=== PATIENT | female | born 1990 | race Caucasian/White ===

== ENCOUNTER 2022-07-06 09:54 | Outpatient (REF) | payer BC, SELFPAY ==
[2022-07-06 11:40] LABS: Hematocrit 41.6 % (37.0-47.0); Hemoglobin 13.6 g/dl (12.0-16.0); Mean Corpuscular HGB Conc 32.7 g/dl (31.0-35.0); Mean Corpuscular Hemoglobin 31.6 pg (27.0-33.0); Mean Corpuscular Volume 96.5 fL (80.0-98.0); Mean Platelet Volume 8.7 fL (9.4-12.3); Platelet Count 316 X10*3/uL (160-400); Red Blood Count 4.31 X10*6/uL (4.20-5.50); Red Cell Distribution Width 12.7 % (11.0-16.0); White Blood Count 8.9 X10*3/uL (4.8-10.8)
[2022-07-06 12:18] LABS: Alanine Aminotransferase 16 U/L (0-31); Albumin Level 4.2 g/dL (3.5-5.0); Alkaline Phosphatase 89 U/L (39-117); Anion Gap 17 (12-20); Aspartate Amino Transferase 18 U/L (5-31); Bilirubin Total 0.5 mg/dL (0.0-1.0); Blood Urea Nitrogen 14 mg/dL (9-16); Calcium 8.9 mg/dL (8.4-10.2); Carbon Dioxide 25 mmol/L (22-29); Chloride 102 mmol/L (96-108); Cholesterol 271 mg/dL; Estimated Glomerular Filt Rate > 60; Glucose Fasting 97 mg/dL (60-99); HDL Cholesterol 60 mg/dL; LDL Cholesterol Calculated 183 mg/dl; Potassium 4.6 mmol/L (3.3-5.1); Sodium 139 mmol/L (135-145); Total Protein 7.3 g/dL (6.5-8.0); Triglycerides 143 mg/dL
[2022-07-06 12:33] LABS: Appearance Urine Clear; Color Urine Yellow; Glucose Urine UA Negative (Negative); Leukocyte Esterase Urine Negative (Negative); Nitrite Urine Negative (Negative); PH 6.5 (5.0-9.0); Urine Blood Negative (Negative); Urine Ketones Negative (Negative); Urine Protein Negative (Neg-Trace)
[2022-07-06 17:07] LABS: TSH reflex Free T4 > 100.00 uIU/mL (0.32-4.0)
== END 2022-07-06 09:55 | disposition home or self-care (01) ==
LOC: HO.WFDLDS 09:54
PROVIDERS: Visit Provider Hospitalist
DX: Z00.00 Encounter for general adult medical examination without abnormal findings (principal)
CPT/HCPCS: 36415; 80053; 80061; 81003; 84439; 84443; 85027

== ENCOUNTER → 2022-08-20 13:18 | Outpatient (BNVA) | payer BC, SELFPAY | PROVIDERS: PCP Hospitalist; Visit Provider Dietitian, Registered | DX: E66.9 Obesity, unspecified (principal); E78.00 Pure hypercholesterolemia, unspecified | CPT/HCPCS: 97802 ==

== ENCOUNTER 2022-09-08 11:15 | Outpatient (REF) | payer BC, SELFPAY ==
[2022-09-08 14:32] LABS: Thyroid Stimulating Hormone 2.95 uIU/mL (0.32-4.0)
== END 2022-09-08 11:16 | disposition home or self-care (01) ==
LOC: HO.WFDLDS 11:15
PROVIDERS: Visit Provider Internal Medicine Endocrinology, Diabetes & Metabolism
DX: E03.9 Hypothyroidism, unspecified (principal)
CPT/HCPCS: 36415; 84439; 84443

== ENCOUNTER 2023-01-03 11:18 | Outpatient (REF) | payer BC, SELFPAY ==
[2023-01-03 14:58] LABS: Free T4 (Free Thyroxine) 1.43 ng/dL (0.71-1.85); Thyroid Stimulating Hormone 2.77 uIU/mL (0.32-4.0)
== END 2023-01-03 11:19 | disposition home or self-care (01) ==
LOC: HO.WFDLDS 11:18
PROVIDERS: Visit Provider Internal Medicine Endocrinology, Diabetes & Metabolism
DX: E03.9 Hypothyroidism, unspecified (principal)
CPT/HCPCS: 36415; 84439; 84443

== ENCOUNTER → 2023-01-14 08:07 | Outpatient (BNVA) | payer BC, SELFPAY | PROVIDERS: PCP Hospitalist; Visit Provider Internal Medicine Endocrinology, Diabetes & Metabolism | DX: Z13.89 Encounter for screening for other disorder (principal) ==

== ENCOUNTER → 2023-01-17 13:13 | Outpatient (BNVA) | payer BC, SELFPAY | PROVIDERS: PCP Hospitalist; Visit Provider Dietitian, Registered | DX: E78.00 Pure hypercholesterolemia, unspecified (principal); E66.9 Obesity, unspecified; Z68.41 Body mass index [BMI] 40.0-44.9, adult; Z71.3 Dietary counseling and surveillance | CPT/HCPCS: 97803 ==

== ENCOUNTER 2023-04-08 08:23 | Outpatient (AMB) | payer BC, SELFPAY ==
--- NOTE | 2023-04-08 08:30 | A.OFFPC_ITS ---
Vital Signs 04/08/23 08:34 Height 5 ft 4 in Weight 252 lb 8 oz BMI 43.3 BP 128/80 Blood Pressure Location Lt brachial Position Sitting Respiration 14 Pulse 85 Pulse Source Pulse Oximeter Temp 98.9 F Temp Source Temporal Artery Scan Pulse Oximetry (%) 98 Oxygen Delivery Method Room Air Intake Visit Reasons: f/u for weight and medication Intake Note: Patient presents today for a follow up on her weight and medications. Patient had labs drawn last on 01/03/2023 with a TSH of 2.77 and Free T4 of 1.43. Patient was last seen by nutrition on 01/17/2023 and endocrine on 01/14/2023. Patient has Yen Bhakta DNP for her PCP and was last seen by her on 01/03/2023. Flavorings Compounder Required: No Accompanied by: Self / Same As Patient Allergies sertraline Allergy (Unknown, Verified 04/08/23 08:49) Rash Medication List - Last Reconciled 04/08/23 by Migue Sanderson CNP fluticasone propionate 50 mcg/actuation 1 spray intranasal DAILY levothyroxine (Synthroid) 175 mcg PO DAILY metformin 500 mg PO DAILY multivitamin 1 tab PO DAILY Tobacco use date assessed: 04/08/23 Dental Screening Dental Screen Date: 04/08/23 Did you have a dental visit in the last 12 months?: Yes Did you have a dental problem in the last 6 months where you did not have access to dental care?: No Was dental information given to patient?: Patient has dentist HPI HPI Comments History of Present Illness Details 32-year-old female presents for weight management follow-up. She is on Metformin for weight loss. She notes appetite suppression but her weight is unchanged. She is followed by auto hauler/dietitian. She states she follows care plan. Her BMI today is 43.3. She states that she is not currently exercising. No acute symptoms. [facility] Medical History Anxiety Depression Graves disease Hypothyroidism Sleep apnea Surgical History History of sinus surgery History of surgery History of wisdom tooth extraction Family History Father No family history of mental disorder Diabetes Mother No family history of mental disorder Breast cancer Social History (Updated 04/08/23 @ 08:34 by Renata Christian) Household Members: Spouse and Family Housing: House Alcohol intake: never Patient Tobacco Use Status: Never used Tobacco e-Cigarette/Vaping Use: Never Used service: No Current occupational status: employed Sexual orientation: Straight/Heterosexual Gender identity: Female Cognitive needs: No Hearing needs: No Vision needs: No Review of Systems Const Details: Const Denies chills, Denies fatigue, Denies fever(s), Denies headache(s) and Denies weakness ENT Denies dizziness and Denies headache(s) Card Denies chest pain, Denies lightheadedness, Denies dyspnea and Denies other (Palpitations) Resp Denies cough, Denies dyspnea, Denies wheezing and Denies other ( shortness of breath) GI Denies abdominal pain, Denies melena, Denies hematochezia, Denies change in bowel habits, Denies dyspepsia and Denies nausea Denies hematuria and Denies dysuria Musc Denies abnormal gait, Denies myalgias, Denies arthralgias, Denies numbness and Denies tingling Skin/Breast Denies rash, Denies unusual bruising and Denies wounds Neuro Denies abnormal gait, Denies dizziness, Denies headache(s), Denies memory loss, Denies numbness, Denies Sensory deficit (Neuro), Denies tingling and Denies weakness Psych Denies anxiety and Denies depression Endo Denies fatigue Aller/Immun Denies wheezing Physical exam (Primary Care) Vital Signs: Last Vital Signs Temp 98.9 F 04/08/23 08:34 Pulse 85 04/08/23 08:34 Resp 14 04/08/23 08:34 BP 128/80 04/08/23 08:34 Pulse Ox 98 04/08/23 08:34 Oxygen Delivery Method Room Air 04/08/23 08:34 BMI result Body Mass Index 43.3 Tobacco/Smoking Status: Tobacco use Status Tobacco use date assessed 04/08/23 04/08/23 08:45 Patient Tobacco Use Status Never used Tobacco 04/08/23 08:36 e-Cigarette/Vaping Use Never Used 04/08/23 08:36 Const Other: General: no acute distress and well developed Nutritional Appearance: well nourished Orientation/consciousness: patient oriented x3 [facility] Head: Yes normocephalic and Yes atraumatic Eyes General: appearance normal, both eyes and all related structures Pupils: Equal, round and reactive pupils present EOM: EOMs intact bilaterally Resp Effort & Inspection: normal respiratory effort Auscultation: clear to auscultation bilaterally Cardio Rate: regular rate Rhythm: regular rhythm Heart sounds: S1 normal heart sound present, S2 normal heart sound present, no gallops, no murmurs and no rubs GI Palpation (GI): No Abdominal aortic bruit present, Soft to palpation, nontender, No hepatosplenomegaly present and No Rebound tenderness present Auscultation: normal bowel sounds General: Yes no CVA tenderness Back/Spine/Pelvis Back: no CVA tenderness Cervical Spine: cervical ROM normal and No Cervical spine tenderness Thoracic/Lumbar Spine: thoraco-lumbar ROM normal, No pain with thoraco-lumbar ROM, No thoracic spinal tenderness and No lumbar spinal tenderness Extrem General: Yes normal to inspection, No edema and No calf tenderness Skin General: warm and dry. Normal skin color. Normal skin turgor Lesions: no lesions Rashes: no rashes Trauma: no lacerations or abrasions Wounds: no wounds Nails: normal Neuro General: patient oriented x3, gait normal and no focal neuro deficit Cranial nerves: Yes Equal, round and reactive pupils present Cognition (Neuro): normal cognition Gait exam (Neuro): Normal gait present Sensory Exam: No Sensory deficit (Neuro) Psych Affect: normal affect Assessment and Plan Assessment & Plan (1) Encounter for weight management: Code(s): Z76.89 - Persons encountering health services in other specified circumstances Plan: Metformin as prescribed Healthy diet per auto hauler Routine exercise encouraged Referred to weight management Follow up as needed Verbalized understanding and agreed with the plan. (2) Hypothyroidism: Code(s): E03.9 - Hypothyroidism, unspecified Plan: Normal TSH/T4 in December, Levothyroxine as prescribed Follow up with PCP in 3 months or return sooner with symptoms or concerns Verbalized understanding and agreed with the plan. Orders: Orders TSH reflex Free T4 Today E03.9 - Hypothyroidism, unspecified Referrals Medical Weight Management Referral Z68.41 - Body mass index [BMI] 40.0-44.9, adult, Z76.89 - Persons encountering health services in other specified circumstances Coding Level of Care Code Est Pt Level 3 (24741) Diagnoses Encounter for weight management Z76.89 Hypothyroidism E03.9 Time Spent (min) 25
[2023-04-08 08:34] VITALS: BP 128/80; PULSE 85; RESP 14; TEMP 37.2; O2SAT 98; BMI 43.3
== END 2023-04-08 09:14 | disposition home or self-care (01) ==
PROVIDERS: PCP Hospitalist; Visit Provider Nurse Practitioner Family
DX: Z76.89 Persons encountering health services in other specified circumstances (principal); E03.9 Hypothyroidism, unspecified
CPT/HCPCS: 99213

== ENCOUNTER 2023-04-08 09:25 | Outpatient (REF) | payer BC, SELFPAY ==
[2023-04-08 15:00] LABS: TSH reflex Free T4 1.39 uIU/mL (0.32-4.0)
== END 2023-04-08 09:26 | disposition home or self-care (01) ==
LOC: HO.WFDLDS 09:25
PROVIDERS: Visit Provider Nurse Practitioner Family
DX: E03.9 Hypothyroidism, unspecified (principal)
CPT/HCPCS: 36415; 84443

== ENCOUNTER 2023-05-03 08:26 | Outpatient (AMB) | payer BC, SELFPAY ==
[2023-05-03 08:39] VITALS: BMI 43.6
--- NOTE | 2023-05-03 08:39 | A.OFFVIS_ITS ---
Intake VS Expanded 05/03/23 08:39 Height 5 ft 4 in Weight 253 lb 12.033 oz BMI 43.6 Intake Visit Reasons: obesity, chol Allergies sertraline Allergy (Unknown, Verified 04/08/23 08:49) Rash HPI Nutrition Presentation Details Pt presents for MNT for obesity. Pt reports having made no significant diet modificationc Recently on vacation c/o feeling tired all the time, lack of time for physical activity works from home Reorts typical meal intake B: 2 eggs boiled with low carb tortilla L: salad with chicken Dinner : herbal life shake 8 g fiber supplement Reports drinking water with meals or no sugar flavored beverages: 60 oz Keeping food record/on and off Most Recent Diabetes Results: No Data to Display [facility] Medical History Anxiety Depression Graves disease Hypothyroidism Sleep apnea Surgical History History of sinus surgery History of surgery History of wisdom tooth extraction Family History Father No family history of mental disorder Diabetes Mother No family history of mental disorder Breast cancer Social History (Updated 04/08/23 @ 08:34 by Renata Christian) Household Members: Spouse and Family Housing: House Alcohol intake: never Patient Tobacco Use Status: Never used Tobacco e-Cigarette/Vaping Use: Never Used service: No Current occupational status: employed Sexual orientation: Straight/Heterosexual Gender identity: Female Cognitive needs: No Hearing needs: No Vision needs: No Assessment & Plan Assessment & Plan (1) High cholesterol: Code(s): E78.00 - Pure hypercholesterolemia, unspecified (2) Obesity (BMI 35.0-39.9 without comorbidity): Code(s): E66.9 - Obesity, unspecified Plan: Educate Pt on [id number] serg meal plan ? Used wt : 117 kg (115 kg on 05/03/23) Est kcal as per MSJ: 2234-250 = 1983 (40% carb, 30% fat/prot) Est fluid needs: 2925 ml/d (25 ml/kg bw) Rec fiber: increase to 8-10 g per day and gradually increase to 25 g/d or as tolerated Rec Na: < 2000 mg /d Educate patient on: (R= Reviewed, V = verbalizes understanding N/R= Needs review N/A= not applicable) * Food sources of carbohydrates and serving adequate serving sizes : R * Difference between complex carbohydrates and simple carbohydrates, role of fiber: R * Differences between fats (MUFA/PUFA/saturated fats, trans fats) and food sources of various fats: R * Food sources of sodium and salt and healthy modifications for heart health and kidney health: N/R * Vitamins and minerals: N/R * How to interpret food labels: N/R * Healthy Plate method concept: R * Physical activity: benefits and precaution: R Patient Instructions: Monitor your total caloric intake for a week and gradually reduce on calories from fats- goal 1800cal per day -Engage in 10 minutes physical activity (walking, marching in place, dancing) and gradually increase to 30 minutes as part of daily routine -recommend monitoring for anemia Coding Level of Care Code Nutr Indiv Subseq (81439) Diagnoses High cholesterol E78.00 Obesity (BMI 35.0-39.9 without comorbidity) E66.9 Time Spent (min) 20
== END 2023-05-03 09:27 | disposition home or self-care (01) ==
PROVIDERS: PCP Hospitalist; Visit Provider Dietitian, Registered
DX: E78.00 Pure hypercholesterolemia, unspecified (principal); E66.9 Obesity, unspecified

== ENCOUNTER → 2023-05-03 08:26 | Outpatient (BNVA) | payer BC, SELFPAY | PROVIDERS: Visit Provider Dietitian, Registered | DX: E66.9 Obesity, unspecified (principal); E78.00 Pure hypercholesterolemia, unspecified; Z68.41 Body mass index [BMI] 40.0-44.9, adult; Z71.3 Dietary counseling and surveillance | CPT/HCPCS: 97803 ==

== ENCOUNTER → 2023-06-14 15:07 | Outpatient (BNVA) | payer BC, SELFPAY | PROVIDERS: PCP Hospitalist; Visit Provider Physician Assistant Surgical ==

== ENCOUNTER 2023-06-16 13:05 | Outpatient (AMB) | payer BC, SELFPAY ==
--- NOTE | 2023-06-16 13:17 | MHC.PC.OV ---
Vital Signs 06/16/23 13:19 Height 5 ft 4 in Weight 244 lb BMI 41.9 BP 138/72 Blood Pressure Location Lt brachial Position Sitting Respiration 12 Pulse 83 Pulse Source Pulse Oximeter Temp 98.7 F Temp Source Oral Pulse Oximetry (%) 98 Intake Visit Reasons: discuss antidepressant, f/u Hypothyroidism Intake Note: Patient is here to follow up on her thyroid, and would like to discuss an antidepressant. Allergies sertraline Allergy (Unknown, Verified 06/16/23 13:30) Rash Medication List - Last Reconciled 06/16/23 by Migue Sanderson CNP fluticasone propionate 50 mcg/actuation 1 spray intranasal DAILY levothyroxine (Synthroid) 175 mcg PO DAILY loratadine (Claritin) 10 mg PO DAILY metformin 500 mg PO DAILY multivitamin 1 tab PO DAILY Tobacco use date assessed: 06/16/23 Dental Screening Dental Screen Date: 06/16/23 Did you have a dental visit in the last 12 months?: Yes Did you have a dental problem in the last 6 months where you did not have access to dental care?: No Was dental information given to patient?: Patient has dentist HPI HPI Comments History of Present Illness Details 32-year-old female presents for hypothyroidism follow-up. She had normal TSH level last August in December and March of this year She is on levothyroxine 175 mcg daily. She admits to taking her medications as prescribed She notes she has not been able to focus, she is easily irritable especially with her one of her child, and avoiding people. She states she does not have interest or pleasure in doing things she used to enjoy doing. She states she has had these symptoms started 3 years ago and have progressively gotten worse the past 2 months. She states that her symptoms are affecting her home. She states that she is with 4 children. She states she has been on sertraline, prozac, and escitalopram in the past. She developed rash on sertraline. She thinks escitalopram was effective and had no adverse reaction to it. She was on prozac at childhood and does not recall effect or adverse reactions to it. She also reports h/o behavioral therapy which was effective. She is interested in medication treatment and behavioral therapy. 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 She states she has been making healthy dietary choices and exercising routinely. She states that she relocated from [facility] to [facility] a year ago. [facility] Medical History Hypothyroidism Sleep apnea Graves disease Depression Anxiety Surgical History History of surgery History of wisdom tooth extraction History of sinus surgery Family History Father No family history of mental disorder Diabetes Mother No family history of mental disorder Breast cancer Daughter No problems noted. Daughter No problems noted. Son No problems noted. Social History Household Members: Spouse and Family Housing: House Alcohol intake: never Patient Tobacco Use Status: Never used Tobacco e-Cigarette/Vaping Use: Never Used service: No Current occupational status: employed Sexual orientation: Straight/Heterosexual Gender identity: Female Cognitive needs: No Hearing needs: No Vision needs: No Questionnaire PHQ-9 Over the last 2 weeks, how often have you been bothered by any of the following problems? 1. Little interest or pleasure in doing things: more than half the days 2. Feeling down, depressed, or hopeless: several days 3. Trouble falling or staying asleep, or sleeping too much: several days 4. Feeling tired or having little energy: nearly every day 5. Poor appetite or overeating: not at all 6. Feeling bad about yourself - or that you are a failure or have let yourself or your family down: several days 7. Trouble concentrating on things, such as reading the newspaper or watching television: nearly every day 8. Moving or speaking so slowly that other people could have noticed. Or the opposite - being so fidgety or restless that you have been moving around a lot more than usual: not at all 9. Thoughts that you would be better off or of hurting yourself in some way: not at all Total score: 11 Depression Screening Interpretation: Positive Depression Screening Follow-up: Existing condition, In treatment and Community Mental Health Worker F/U Source: Developed by Drs. Tj Sr, Gabbi Andrea, Rafa Ellis and colleagues, with an educational chen from [employer]. FEROZ-7 AMB Questionnaire FEROZ-7 Date FEROZ - 7 assessed: 06/16/23 Feeling nervous, anxious, or on edge: 1 = Several days Not being able to stop or control worryin = Not at all Worrying too much about different things: 1 = Several days Trouble relaxin = More than half the days Being so restless that it is hard to sit still: 0 = Not at all Becoming easily annoyed or irritable: 3 = Nearly every day Feeling afraid as if something awful might happen: 0 = Not at all Total FEROZ-7 score (0-4 normal; 5-9 mild; 10-14 moderate; 15-21 severe): 7 Source: Developed by Drs. Tj Sr, Gabbi Andrea, Rafa Ellis and colleagues, with an educational chen from [employer]. Review of Systems Const Details: Const Denies chills, Denies fatigue, Denies fever(s), Denies headache(s) and Denies weakness ENT Denies dizziness and Denies headache(s) Card Denies chest pain, Denies lightheadedness, Denies dyspnea and Denies other (Palpitations) Resp Denies cough, Denies dyspnea, Denies wheezing and Denies other ( shortness of breath) GI Denies abdominal pain, Denies melena, Denies hematochezia, Denies change in bowel habits, Denies dyspepsia and Denies nausea Denies hematuria and Denies dysuria Musc Denies abnormal gait, Denies myalgias, Denies arthralgias, Denies numbness and Denies tingling Skin/Breast Denies rash, Denies unusual bruising and Denies wounds Neuro Denies abnormal gait, Denies dizziness, Denies headache(s), Denies memory loss, Denies numbness, Denies Sensory deficit (Neuro), Denies tingling and Denies weakness Psych Denies anxiety, Denies depression, Denies memory loss Endo Denies cold intolerance, Denies fatigue, Denies heat intolerance, Denies polydipsia and Denies polyuria Aller/Immun Denies wheezing Physical exam (Primary Care) BMI result Body Mass Index 41.9 Tobacco/Smoking Status: Tobacco use Status Tobacco use date assessed 04/08/23 06/16/23 13:19 Patient Tobacco Use Status Never used Tobacco 06/16/23 13:19 e-Cigarette/Vaping Use Never Used 06/16/23 13:19 Depression Screening Interpretation: Positive Depression Screening Follow-up: Existing condition, In treatment and Community Mental Health Worker F/U Const Other: General: no acute distress and well developed Nutritional Appearance: well nourished Orientation/consciousness: patient oriented x3 HENMT Head: Yes normocephalic and Yes atraumatic Eyes General: appearance normal, both eyes and all related structures Pupils: Equal, round and reactive pupils present EOM: EOMs intact bilaterally Resp Effort & Inspection: normal respiratory effort Auscultation: clear to auscultation bilaterally Cardio Rate: regular rate Rhythm: regular rhythm Heart sounds: S1 normal heart sound present, S2 normal heart sound present, no gallops, no murmurs and no rubs GI Palpation (GI): No Abdominal aortic bruit present, Soft to palpation, nontender, No hepatosplenomegaly present and No Rebound tenderness present Auscultation: normal bowel sounds General: Yes no CVA tenderness Back/Spine/Pelvis Back: no CVA tenderness Cervical Spine: cervical ROM normal and No Cervical spine tenderness Thoracic/Lumbar Spine: thoraco-lumbar ROM normal, No pain with thoraco-lumbar ROM, No thoracic spinal tenderness and No lumbar spinal tenderness Extrem General: Yes normal to inspection, No edema and No calf tenderness Skin General: warm and dry. Normal skin color. Normal skin turgor Lesions: no lesions Rashes: no rashes Trauma: no lacerations or abrasions Wounds: no wounds Nails: normal Neuro General: patient oriented x3, gait normal and no focal neuro deficit Cranial nerves: Yes Equal, round and reactive pupils present Cognition (Neuro): normal cognition Gait exam (Neuro): Normal gait present Sensory Exam: No Sensory deficit (Neuro) Psych Appearance: grossly normal Affect: normal affect Attitude: cooperative Thought process: Normal thought process present Assessment and Plan Assessment & Plan (1) Hypothyroidism: Code(s): E03.9 - Hypothyroidism, unspecified Plan: She has had 3 consecutive normal TSH level Continue to take levothyroxine as prescribed With recheck TSH level before next physical which is due before the and this year Verbalized understanding and agreed with treatment plan. (2) Anxiety and depression: Code(s): F41.9 - Anxiety disorder, unspecified; F32.A - Depression, unspecified Plan: PHQ-9 and FEROZ-7 scores revealed moderate depression and mild anxiety respectively She exhibits symptoms of depression Lexapro ordered. Take as prescribed Routine exercise encouraged She met with the community navigator who referred her to a therapist Follow-up in 2 weeks or return sooner with worsening or new symptoms Verbalized understanding and agreed with treatment plan. (3) Laboratory tests ordered as part of a complete physical exam (CPE): Code(s): Z00.00 - Encounter for general adult medical examination without abnormal findings Plan: Fasting labs ordered as part of a complete physical exam. Advised to fast for at least 10 hours before getting labs drawn. May drink water Verbalized understanding and agreed with treatment plan. Orders: Orders Complete Blood Count Auto Diff Today Z00.00 - Encounter for general adult medical examination without abnormal findings TSH reflex Free T4 Today Z00.00 - Encounter for general adult medical examination without abnormal findings Comprehensive [place]. Panel Fast Today Z00.00 - Encounter for general adult medical examination without abnormal findings Lipid Panel Today Z00.00 - Encounter for general adult medical examination without abnormal findings Medications: New escitalopram oxalate 10 mg PO DAILY 30 days 30 tabs 2RF Coding Level of Care Code Est Pt Level 3 (80431) Diagnoses Hypothyroidism E03.9 Anxiety and depression F41.9; F32.A Laboratory tests ordered as part of a complete physical exam (CPE) Z00.00
[2023-06-16 13:19] VITALS: BP 138/72; PULSE 83; RESP 12; TEMP 37.1; O2SAT 98; BMI 41.9
== END 2023-06-16 14:09 | disposition home or self-care (01) ==
PROVIDERS: PCP Hospitalist; Visit Provider Nurse Practitioner Family
DX: E03.9 Hypothyroidism, unspecified (principal); F41.9 Anxiety disorder, unspecified; F32.A Depression, unspecified; Z00.00 Encounter for general adult medical examination without abnormal findings
CPT/HCPCS: 99213

== ENCOUNTER 2023-06-30 16:03 | Outpatient (AMB) | payer BC, SELFPAY ==
[2023-06-30 16:12] VITALS: BP 120/76; PULSE 85; RESP 13; TEMP 36.5; O2SAT 98; BMI 41.8
--- NOTE | 2023-06-30 16:12 | MHC.PC.OV ---
Vital Signs 06/30/23 16:12 Height 5 ft 4 in Weight 243 lb 6 oz BMI 41.8 BP 120/76 Blood Pressure Location Lt brachial Position Sitting Respiration 13 Pulse 85 Pulse Source Pulse Oximeter Temp 97.7 F Temp Source Temporal Artery Scan Pulse Oximetry (%) 98 Oxygen Delivery Method Room Air Intake Visit Reasons: f/u anxiety and depression Assistant Coach Required: No Accompanied by: Self / Same As Patient Allergies sertraline Allergy (Unknown, Verified 06/30/23 16:16) Rash Tobacco use date assessed: 06/16/23 Dental Screening Dental Screen Date: 06/30/23 Did you have a dental visit in the last 12 months?: Yes Did you have a dental problem in the last 6 months where you did not have access to dental care?: No Was dental information given to patient?: Patient has dentist HPI HPI Comments History of Present Illness Details 32-year-old female presents for anxiety and depression follow-up. She also has history of hypothyroidism and on levothyroxine. She was followed by endocrinology. She was last seen in the office at the end of last month. She presented with worsening chronic depression. Lexapro was prescribed. Routine labs including TSH were ordered. She notes that she has been taking Lexapro as prescribed with no improvement of her symptoms. She states that she has not been contacted to connect to a therapist. She states she started exercise in her home gym but has not exercised this week because she been very busy with work and other planing. She has not gotten her routine blood work done. She stated that she was evaluated by with management and has a follow-up next week for gastric balloon consultation. [facility] Medical History Hypothyroidism Sleep apnea Graves disease Depression Anxiety Surgical History History of surgery History of wisdom tooth extraction History of sinus surgery Family History Father No family history of mental disorder Diabetes Mother No family history of mental disorder Breast cancer Daughter No problems noted. Daughter No problems noted. Son No problems noted. 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 1. Little interest or pleasure in doing things: nearly every day 2. Feeling down, depressed, or hopeless: more than half the days 3. Trouble falling or staying asleep, or sleeping too much: nearly every day 4. Feeling tired or having little energy: nearly every day 5. Poor appetite or overeating: nearly every day 6. Feeling bad about yourself - or that you are a failure or have let yourself or your family down: more than half the days 7. Trouble concentrating on things, such as reading the newspaper or watching television: nearly every day 8. Moving or speaking so slowly that other people could have noticed. Or the opposite - being so fidgety or restless that you have been moving around a lot more than usual: not at all 9. Thoughts that you would be better off or of hurting yourself in some way: not at all Total score: 19 Depression Screening Interpretation: Positive Depression Screening Follow-up: Existing condition and In treatment Depression Screening Done: Yes Source: Developed by Drs. Tj Sr, Gabbi Andrea, Rafa Ellis and colleagues, with an educational chen from [employer]. FEROZ-7 AMB Questionnaire FEROZ-7 Date FEROZ - 7 assessed: 06/16/23 Feeling nervous, anxious, or on edge: 2 = More than half the days Not being able to stop or control worryin = More than half the days Worrying too much about different things: 2 = More than half the days Trouble relaxin = Nearly every day Being so restless that it is hard to sit still: 0 = Not at all Becoming easily annoyed or irritable: 3 = Nearly every day Feeling afraid as if something awful might happen: 0 = Not at all Total FEROZ-7 score (0-4 normal; 5-9 mild; 10-14 moderate; 15-21 severe): 12 Source: Developed by Gabbi TiwariW. Emre, Rafa Ellis and colleagues, with an educational chen from [employer]. Review of Systems Const Details: Const Denies chills, Denies fatigue, Denies fever(s), Denies headache(s) and Denies weakness ENT Denies dizziness and Denies headache(s) Card Denies chest pain, Denies lightheadedness, Denies dyspnea and Denies other (Palpitations) Resp Denies cough, Denies dyspnea, Denies wheezing and Denies other ( shortness of breath) GI Denies abdominal pain, Denies melena, Denies hematochezia, Denies change in bowel habits, Denies dyspepsia and Denies nausea Denies hematuria and Denies dysuria Musc Denies abnormal gait, Denies myalgias, Denies arthralgias, Denies numbness and Denies tingling Skin/Breast Denies rash, Denies unusual bruising and Denies wounds Neuro Denies abnormal gait, Denies dizziness, Denies headache(s), Denies memory loss, Denies numbness, Denies Sensory deficit (Neuro), Denies tingling and Denies weakness Psych Reports anxiety, Reports depression, Denies memory loss Endo Denies cold intolerance, Denies fatigue, Denies heat intolerance, Denies polydipsia and Denies polyuria Aller/Immun Denies wheezing Physical exam (Primary Care) Vital Signs: Last Vital Signs Temp 97.7 F 06/30/23 16:12 Pulse 85 06/30/23 16:12 Resp 13 06/30/23 16:12 BP 120/76 06/30/23 16:12 Pulse Ox 98 06/30/23 16:12 Oxygen Delivery Method Room Air 06/30/23 16:12 BMI result Body Mass Index 41.8 Tobacco/Smoking Status: Tobacco use Status Tobacco use date assessed 06/16/23 06/30/23 16:17 Patient Tobacco Use Status Never used Tobacco 06/30/23 16:17 e-Cigarette/Vaping Use Never Used 06/30/23 16:17 Depression Screening Interpretation: Positive Depression Screening Follow-up: Existing condition and In treatment Const Other: General: no acute distress and well developed Nutritional Appearance: well nourished Orientation/consciousness: patient oriented x3 HENMT Head: Yes normocephalic and Yes atraumatic Eyes General: appearance normal, both eyes and all related structures Pupils: Equal, round and reactive pupils present EOM: EOMs intact bilaterally Resp Effort & Inspection: normal respiratory effort Auscultation: clear to auscultation bilaterally Cardio Rate: regular rate Rhythm: regular rhythm Heart sounds: S1 normal heart sound present, S2 normal heart sound present, no gallops, no murmurs and no rubs GI Palpation (GI): No Abdominal aortic bruit present, Soft to palpation, nontender, No hepatosplenomegaly present and No Rebound tenderness present Auscultation: normal bowel sounds General: Yes no CVA tenderness Back/Spine/Pelvis Back: no CVA tenderness Cervical Spine: cervical ROM normal and No Cervical spine tenderness Thoracic/Lumbar Spine: thoraco-lumbar ROM normal, No pain with thoraco-lumbar ROM, No thoracic spinal tenderness and No lumbar spinal tenderness Extrem General: Yes normal to inspection, No edema and No calf tenderness Skin General: warm and dry. Normal skin color. Normal skin turgor Lesions: no lesions Rashes: no rashes Trauma: no lacerations or abrasions Wounds: no wounds Nails: normal Neuro General: patient oriented x3, gait normal and no focal neuro deficit Cranial nerves: Yes Equal, round and reactive pupils present Cognition (Neuro): normal cognition Gait exam (Neuro): Normal gait present Sensory Exam: No Sensory deficit (Neuro) Psych Appearance: grossly normal Affect: normal affect Attitude: cooperative Thought process: Normal thought process present Assessment and Plan Assessment & Plan (1) Anxiety and depression: Code(s): F41.9 - Anxiety disorder, unspecified; F32.A - Depression, unspecified Plan: FEROZ-7 in PHQ-9 scores revealed moderate anxiety and moderately severe depression She denies changes with Lexapro Will increase Lexapro to 20 mg daily. Take as prescribed Routine exercise encouraged Message sent to the community navigator that the patient has not been contacted by therapist Will check TSH level. Patient informed that elevated TSH level may affect mood Encouraged to get fasting blood work done before her next visit Follow-up in 2 weeks or return sooner with worsening or new symptoms Verbalized understanding and agreed with treatment plan. Medications: New escitalopram oxalate (Lexapro) 20 mg PO DAILY 30 tabs 3RF 30 days Discontinued escitalopram oxalate Discontinued Reason: Doctor's Order 10 mg PO DAILY 30 tabs 2RF 30 days Coding Level of Care Code Est Pt Level 3 (77081) Diagnoses Anxiety and depression F41.9; F32.A
== END 2023-06-30 17:02 | disposition home or self-care (01) ==
PROVIDERS: PCP Hospitalist; Visit Provider Nurse Practitioner Family
DX: F41.9 Anxiety disorder, unspecified (principal); F33.2 Major depressive disorder, recurrent severe without psychotic features
CPT/HCPCS: 99214

== ENCOUNTER 2023-07-01 08:00 | Outpatient (REF) | payer BC, SELFPAY ==
[2023-07-01 11:38] LABS: MANUAL DIFF FLAG NO
[2023-07-01 12:07] LABS: Basophils Percent Auto 0.2 % (0-2); Eosinophils Absolute Auto 0.2 X10*3/uL (0.0-0.4); Eosinophils Percent Auto 2.1 % (0-4); Hematocrit 40.3 % (37.0-47.0); Hemoglobin 13.5 g/dl (12.0-16.0); Imm Gran Abs Auto 0.02 X10*3/uL (0.00-0.03); Imm Gran Pct Auto 0.2 % (0.0-0.4); Lymphocytes Percent Auto 24.5 % (20-40); Mean Corpuscular HGB Conc 33.5 g/dl (31.0-35.0); Mean Corpuscular Hemoglobin 30.9 pg (27.0-33.0); Mean Corpuscular Volume 92.2 fL (80.0-98.0); Mean Platelet Volume 8.7 fL (9.4-12.3); Monocytes Absolute Auto 0.5 X10*3/uL (0.1-1.2); Neutrophils Absolute Auto 5.5 x10*3/uL (2.0-8.3); Platelet Count 355 X10*3/uL (160-400); Red Blood Count 4.37 X10*6/uL (4.20-5.50); Red Cell Distribution Width 12.5 % (11.0-16.0); White Blood Count 8.2 X10*3/uL (4.8-10.8)
[2023-07-01 13:02] LABS: Alanine Aminotransferase 29 U/L (0-31); Albumin Level 3.9 g/dL (3.5-5.0); Alkaline Phosphatase 84 U/L (39-117); Anion Gap 12 (12-20); Aspartate Amino Transferase 24 U/L (5-31); Bilirubin Total 0.6 mg/dL (0.0-1.0); Blood Urea Nitrogen 12 mg/dL (9-16); Calcium 9.1 mg/dL (8.4-10.2); Carbon Dioxide 24 mmol/L (22-29); Chloride 106 mmol/L (96-108); Cholesterol 198 mg/dL (<200); Estimated Glomerular Filt Rate > 60; Glucose Fasting 110 mg/dL (60-99); HDL Cholesterol 48 mg/dL (>40); LDL Cholesterol Calculated 121 mg/dL (<100); Potassium 4.2 mmol/L (3.3-5.1); Sodium 138 mmol/L (135-145); TSH reflex Free T4 0.29 uIU/mL (0.32-4.0); Total Protein 7.3 g/dL (6.5-8.0); Triglycerides 145 mg/dL (<150)
[2023-07-01 13:52] LABS: Free T4 (Free Thyroxine) 1.31 ng/dL (0.71-1.85)
== END 2023-07-01 08:01 | disposition home or self-care (01) ==
LOC: HO.WFDLDS 08:00
PROVIDERS: Visit Provider Nurse Practitioner Family
DX: Z00.00 Encounter for general adult medical examination without abnormal findings (principal)
CPT/HCPCS: 36415; 80053; 80061; 84439; 84443; 85025

== ENCOUNTER 2023-07-13 15:34 | Outpatient (AMB) | payer BC, SELFPAY ==
[2023-07-13 15:38] VITALS: BP 122/68; PULSE 77; RESP 13; TEMP 36.4; O2SAT 99; BMI 42.1
--- NOTE | 2023-07-13 15:38 | A.OFFPC_ITS ---
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 Accompanied by: Self / Same As Patient Allergies sertraline Allergy (Unknown, Verified 07/13/23 15:54) Rash Medication List - Last Reconciled 07/13/23 by Migue Sanderson CNP escitalopram oxalate (Lexapro) 20 mg PO DAILY 30 days fluticasone propionate 50 mcg/actuation 1 spray intranasal DAILY levothyroxine (Synthroid) 175 mcg PO DAILY loratadine (Claritin) 10 mg PO DAILY multivitamin 1 tab PO DAILY Tobacco use date assessed: 06/16/23 Dental Screening Dental Screen Date: 07/13/23 Did you have a dental visit in the last 12 months?: Yes Did you have a dental problem in the last 6 months where you did not have access to dental care?: No Was dental information given to patient?: Patient has dentist HPI HPI Comments History of Present Illness Details 32-year-old female presents for anxiety and depression follow-up. She was evaluated in the office 2 weeks ago. She presented with worsening anxiety and depression symptoms. Lexapro was increased from 10 mg daily to 20 mg daily. She was encouraged to exercise routinely. She admits to taking Lexapro daily as prescribed with some improvement of her anxiety and depression symptoms. She has been less irritable. However, she has been feeling tired and finds it difficult to wake up in the morning. She started taking the medication at night instead of in the morning with minimal improvement of her tiredness. She notes that she is still in the process of connecting with a therapist; they are verifying her health plan. [facility] Medical History Hypothyroidism Sleep apnea Graves disease Depression Anxiety Surgical History History of surgery History of wisdom tooth extraction History of sinus surgery Family History Father No family history of mental disorder Diabetes Mother No family history of mental disorder Breast cancer Daughter No problems noted. Daughter No problems noted. Son No problems noted. Social History Household Members: Spouse and Family Housing: House Alcohol intake: never Patient Tobacco Use Status: Never used Tobacco e-Cigarette/Vaping Use: Never Used service: No Current occupational status: employed Current occupation: [employer] Sexual orientation: Straight/Heterosexual Gender identity: Female Cognitive needs: No Hearing needs: No Vision needs: No Questionnaire PHQ-9 Over the last 2 weeks, how often have you been bothered by any of the following problems? 1. Little interest or pleasure in doing things: more than half the days 2. Feeling down, depressed, or hopeless: several days 3. Trouble falling or staying asleep, or sleeping too much: more than half the days 4. Feeling tired or having little energy: nearly every day 5. Poor appetite or overeating: more than half the days 6. Feeling bad about yourself - or that you are a failure or have let yourself or your family down: several days 7. Trouble concentrating on things, such as reading the newspaper or watching television: more than half the days 8. Moving or speaking so slowly that other people could have noticed. Or the opposite - being so fidgety or restless that you have been moving around a lot more than usual: not at all 9. Thoughts that you would be better off or of hurting yourself in some way: not at all Total score: 13 Depression Screening Interpretation: Positive Depression Screening Follow-up: Existing condition and In treatment Depression Screening Done: Yes Source: Developed by Drs. Tj Sr, Gabbi Andrea, Rafa Ellis and colleagues, with an educational chen from [employer]. FEROZ-7 AMB Questionnaire FEROZ-7 Date FEROZ - 7 assessed: 07/13/23 Feeling nervous, anxious, or on edge: 2 = More than half the days Not being able to stop or control worryin = Not at all Worrying too much about different things: 1 = Several days Trouble relaxin = More than half the days Being so restless that it is hard to sit still: 0 = Not at all Becoming easily annoyed or irritable: 2 = More than half the days Feeling afraid as if something awful might happen: 0 = Not at all Total FEROZ-7 score (0-4 normal; 5-9 mild; 10-14 moderate; 15-21 severe): 7 Source: Developed by Drs. Tj Sr, Gabbi Andrea, Rafa Ellis and colleagues, with an educational chen from [employer]. FEROZ-7 Assessment Billing FEROZ-7 Assessment Tool: FEROZ-7 Assessment 79478 Review of Systems Const Details: Const Denies chills, Denies fatigue, Denies fever(s), Denies headache(s) and Denies weakness ENT Denies dizziness and Denies headache(s) Card Denies chest pain, Denies lightheadedness, Denies dyspnea and Denies other (Palpitations) Resp Denies cough, Denies dyspnea, Denies wheezing and Denies other ( shortness of breath) GI Denies abdominal pain, Denies melena, Denies hematochezia, Denies change in bowel habits, Denies dyspepsia and Denies nausea Denies hematuria and Denies dysuria Musc Denies abnormal gait, Denies myalgias, Denies arthralgias, Denies numbness and Denies tingling Skin/Breast Denies rash, Denies unusual bruising and Denies wounds Neuro Denies abnormal gait, Denies dizziness, Denies headache(s), Denies memory loss, Denies numbness, Denies Sensory deficit (Neuro), Denies tingling and Denies weakness Psych Denies anxiety, Denies depression, Denies memory loss Endo Denies cold intolerance, Denies fatigue, Denies heat intolerance, Denies polydipsia and Denies polyuria Aller/Immun Denies wheezing Physical exam (Primary Care) Vital Signs: Last Vital Signs Temp 97.6 F 07/13/23 15:38 Pulse 77 07/13/23 15:38 Resp 13 07/13/23 15:38 BP 122/68 07/13/23 15:38 Pulse Ox 99 07/13/23 15:38 Oxygen Delivery Method Room Air 07/13/23 15:38 BMI result Body Mass Index 42.1 Tobacco/Smoking Status: Tobacco use Status Tobacco use date assessed 06/16/23 07/13/23 15:46 Patient Tobacco Use Status Never used Tobacco 07/13/23 15:46 e-Cigarette/Vaping Use Never Used 07/13/23 15:46 PHQ-9: PHQ-9 Score PHQ-9: Total score 13 07/13/23 15:46 Depression Screening Interpretation: Positive Depression Screening Follow-up: Existing condition and In treatment Const Other: General: no acute distress and well developed Nutritional Appearance: well nourished Orientation/consciousness: patient oriented x3 HENMT Head: Yes normocephalic and Yes atraumatic Eyes General: appearance normal, both eyes and all related structures Pupils: Equal, round and reactive pupils present EOM: EOMs intact bilaterally Resp Effort & Inspection: normal respiratory effort Auscultation: clear to auscultation bilaterally Cardio Rate: regular rate Rhythm: regular rhythm Heart sounds: S1 normal heart sound present, S2 normal heart sound present, no gallops, no murmurs and no rubs GI Palpation (GI): No Abdominal aortic bruit present, Soft to palpation, nontender, No hepatosplenomegaly present and No Rebound tenderness present Auscultation: normal bowel sounds General: Yes no CVA tenderness Back/Spine/Pelvis Back: no CVA tenderness Cervical Spine: cervical ROM normal and No Cervical spine tenderness Thoracic/Lumbar Spine: thoraco-lumbar ROM normal, No pain with thoraco-lumbar ROM, No thoracic spinal tenderness and No lumbar spinal tenderness Extrem General: Yes normal to inspection, No edema and No calf tenderness Skin General: warm and dry. Normal skin color. Normal skin turgor Lesions: no lesions Rashes: no rashes Trauma: no lacerations or abrasions Wounds: no wounds Nails: normal Neuro General: patient oriented x3, gait normal and no focal neuro deficit Cranial nerves: Yes Equal, round and reactive pupils present Cognition (Neuro): normal cognition Gait exam (Neuro): Normal gait present Sensory Exam: No Sensory deficit (Neuro) Psych Appearance: grossly normal Affect: normal affect Attitude: cooperative Thought process: Normal thought process present Assessment and Plan Assessment & Plan (1) Anxiety and depression: Code(s): F41.9 - Anxiety disorder, unspecified; F32.A - Depression, unspecified Plan: PHQ-9 and FEROZ-7 scores revealed moderate depression and mild anxiety respectively Reports some improvement with current dose of Lexapro. However, she reports feeling tired Informed that is fatigue is a common side effect of Lexapro that may subside with time Continue take Lexapro as prescribed Routine exercise encouraged; this may increase energy level Continue working on the process of connecting to a therapist Follow-up in 2 weeks or return sooner with worsening or new symptoms Verbalized understanding and agreed with treatment plan. (2) Elevated fasting glucose: Code(s): R73.01 - Impaired fasting glucose Plan: Recent urinalysis results was unremarkable Recent fasting glucose was slightly elevated, 110 Will repeat fasting glucose. Advised to fast for 10-12 hours and get blood work done before next visit Follow-up in 2 weeks Verbalized understanding and agreed with treatment plan. (3) Elevated LDL cholesterol level: Code(s): E78.00 - Pure hypercholesterolemia, unspecified Plan: Recent LDL level was slightly elevated, 121 Advised to limit foods high in saturated fat and avoid foods high trans fat Routine exercise encouraged Will continue to monitor Verbalized understanding and agreed with treatment plan. (4) Low TSH level: Code(s): R79.89 - Other specified abnormal findings of blood chemistry Plan: Recent TSH level was low, 0.29, free T4 was normal. No acute symptoms She reports history of Graves disease at the age of 14 and had successful treatment with iodine Repeat TSH/T4 and check TPO antibody. Advised to get blood work done before next visit Follow-up in 2 weeks Verbalized understanding and agreed with treatment plan. Orders: Orders Thyroid Peroxidase Antibodies Today R79.89 - Other specified abnormal findings of blood chemistry Glucose Fasting Today R73.01 - Impaired fasting glucose TSH reflex Free T4 Today R79.89 - Other specified abnormal findings of blood chemistry Coding Level of Care Code Est Pt Level 3 (56290) Diagnoses Anxiety and depression F41.9; F32.A Elevated fasting glucose R73.01 Elevated LDL cholesterol level E78.00 Low TSH level R79.89 Additional Codes FEROZ-7 Assessment Billing - FEROZ-7 Assessment Tool: FEROZ-7 Assessment [id number] ([id number])
== END 2023-07-13 16:15 | disposition home or self-care (01) ==
PROVIDERS: PCP Hospitalist; Visit Provider Nurse Practitioner Family
DX: F41.9 Anxiety disorder, unspecified (principal); F32.A Depression, unspecified; R73.01 Impaired fasting glucose; E78.00 Pure hypercholesterolemia, unspecified; R79.89 Other specified abnormal findings of blood chemistry
CPT/HCPCS: 96127; 99214

== ENCOUNTER 2023-07-14 14:54 | Outpatient (AMB) | payer BC, SELFPAY ==
--- NOTE | 2023-07-14 14:56 | MHC.OFFVISWM ---
Intake VS Expanded 07/14/23 15:04 BP 122/78 Blood Pressure Location Rt brachial Blood Pressure Position Sitting Pulse 83 Pulse Source Pulse Oximeter Temp 97.3 F Temperature Source Tympanic Pulse Oximetry 96 Oxygen Delivery Method Room Air Height 5 ft 4 in Weight 242 lb 6.4 oz BMI 41.6 Body Fat % 45.3 Body Fat Mass 109.8 Fat Free Mass 132.4 Visceral Fat Rating 12.0 Body Water % 45.3 Body Water Mass 95.0 Muscle Mass/Score 125.8 Basal Metabolic Rate/Score 1,884 Intake Visit Reasons: (OV) Gastric Balloon Allergies sertraline Allergy (Unknown, Verified 07/13/23 15:54) Rash HPI HPI Comments History of Present Illness Details Intake Template This is a 32 year old woman who is here to start SWL program with SWL classes. Her goal is to address her obesity and health related issues which include previously documented obstructive sleep apnea. This test was done in [facility] due to ongoing sleep issues in 2020. The patient noted no improvement with CPAP, so she was advised to lose weight. ? She reports first being concerned about her weight 3rd to 4th grade.? She has tried multiple methods of weight loss including WW, Nutrasystem, HerbaLife, New Wave, has transiently been on phentermine in 2016, all without permanent results. She lives with her & 4 robbin (age 16 to 5 yrs). ??Heaviest weight: Was this summer at 253 lb in April,. Insurance: BC/BS? Bariatric surgery coverage: Y?Pt may be interested in gastric balloon but has concerns regarding the cost. She notes a family member with a BMI over 50 recently had a gastric bypass. Patient and her /family moved from [facility] to be near her 's family Susan JAMES. 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 Intolerance of dairy/lactose:?? will eat yogurt & cottage cheese, does not care for milk Gluten Sensitivity:? No?Celiac? No; she notes being diagnosed with a Lynn's yeast allergy during allergy testing. PMH: Graves, treated & now hypothyroid, MANDIE (CPAP ordered in [place], not using) Depression (patient is on a new medication that is causing sleep issues and fatigue) follow-up regarding her depression medication is with her PCP in 2 weeks. PSH: dental extration, no intra-abdominal surgery She wakes at:???usually 0500, currently [id number]?bed at: 8:30pm-10pm Breakfast:??skips? snack: none Lunch:?Shake or salad? snack: popcorn or protein bar Dinner:???chicken or meat with pasta, vegs? snack: doesn't typically eat sweets After dinner: none Other snacks: Liquids: 32oz morning coffee with Premiere protein drink (no milk, cream or sugar) Alcohol intake: ?minimal? nicotine: ?denied? marijuana:?denied? drugs:???denied? caffeine: 32oz coffee Exercise: Patient has exercise bands, weights, a rowing machine and a [employer] fitness liudmila on her phone but due to fatigue related to her depression medications is not currently regularly exercising Last mammogram: +FH breast cancer in maternal relatives under age 50y; has one mammo (neg) Last pap smear: 2022 control method: had vasectomy Colonoscopy: N/A, no symps ASH: 4 ESS: 7 GERD: 2 QOL: 116 The patient is advised that vitamin or protein supplement samples maybe provided by Landy Maradiaga RD to facilitate care options. PFSH Medical History Hypothyroidism Sleep apnea Graves disease Depression Anxiety Surgical History History of surgery History of wisdom tooth extraction History of sinus surgery Family History Father No family history of mental disorder Diabetes Mother No family history of mental disorder Breast cancer Daughter No problems noted. Daughter No problems noted. Son No problems noted. 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 Sexual orientation: Straight/Heterosexual Gender identity: Female Cognitive needs: No Hearing needs: No Vision needs: No Review of Systems Const All systems reviewed & are unremarkable except as noted in HPI and below Reports as per HPI Physical Exam Vital Signs: Last Vital Signs Temp 97.3 F 07/14/23 15:04 Pulse 83 07/14/23 15:04 BP 122/78 07/14/23 15:04 Pulse Ox 96 07/14/23 15:04 Oxygen Delivery Method Room Air 07/14/23 15:04 BMI result Body Mass Index 41.6 On exam she is nontoxic Sclera anicteric She is in no acute respiratory distress Abdomen is obese Multiple professional tattoos are noted Results Reviewed Results Reviewed: PCP labs 06/30/23 Hb 13.5 N/N, wbc 8.2, Plts 355K BUN 12, Cr 0.77, lytes WNL Glc elevated at 110 TSH low at 0.29 LDL high at 121 LFTs WNL Assessment & Plan Assessment & Plan (1) BMI 40.0-44.9, adult: Code(s): Z68.41 - Body mass index [BMI] 40.0-44.9, adult (2) MANDIE (obstructive sleep apnea): Code(s): G47.33 - Obstructive sleep apnea (adult) (pediatric) (3) Non-restorative sleep: Code(s): G47.8 - Other sleep disorders (4) Anxiety and depression: Code(s): F41.9 - Anxiety disorder, unspecified; F32.A - Depression, unspecified (5) Hypothyroidism: Code(s): E03.9 - Hypothyroidism, unspecified (6) High cholesterol: Code(s): E78.00 - Pure hypercholesterolemia, unspecified (7) Graves disease: Code(s): E05.00 - Thyrotoxicosis with diffuse goiter without thyrotoxic crisis or storm (8) Anxiety: Code(s): F41.9 - Anxiety disorder, unspecified Plan Using a teaching line mover and a gastric balloon model I reviewed options regarding medical, endoscopic and surgical weight loss options. The importance of a meal plan/diet and increased activity/exercise with a goal of burning about 2000 kcal per week was reviewed and apparently understood. The need for dietary change in behavioral changes well as learning healthy habits was discussed with the patient. The inherent risks of medications verses endoscopic complications and early removal/balloon intolerance and rare deaths were discussed regarding non operative management. The risk of weight regain with maladaptive eating and sedentary behavior in the case of surgical options were also discussed. Patient noted candidly that she believes her weight factors into her depression. Her depression medication has just recently been started and is interfering with her ability to be active but she has requested a meal plan and has requested that I began workup. She had questions regarding the cost of the balloon and will discuss with her and follow-up in 2 weeks. She noted that her insurance does cover bariatric surgery and had some questions about the differences between sleeve gastrectomy and gastric bypass. I spent 63 minutes with the patient reviewing her history and answering her questions with greater than 50% of this time spent in counseling. See orders; follow-up in 2 weeks. Will hold on dietitian consult & behavioral health until next visit when the patient returns to discuss her options. She is encouraged to have her accompany her to the appointment. Preop Bariatric Plan 1.?? Nutritional counseling:?Be sure to careful read the number of scoops per shake if you are using powdered mix.? Celebrate Rebuild powdered shakes & the protein bar of your choice.? Remember to be sure the bar has twice as much protein as sugar/carbs! Start with? Premier Protein shakes First shake at 7am-9am (2 scoops in 20 oz unsweetened almond milk) 7-9am Second shake, (2 scoops in 20 oz unsweetened almond milk) at Noon-2pm 1 protein bar ?bars at 3-4pm. Dinner at 4pm (9 forks of protein and 10 forks of salad/vegetables). Meal to include lean meat (beef, fish, pork, turkey, chicken), cooked vegetables or a salad with olive oil and/or fruits (berries, pears, apples, kiwi). Avoid breads, potatoes, starches, rice, pasta, desserts.? The sooner you decrease carbohydrates & excess fats, the sooner you will reach your goal. 2.?? You must closely monitor your blood glucose/pressure at least twice a day. 3.?? After dinner snacking should be protein bar only if needed to avoid poor food choices. Try to drink 64 oz of water daily and avoid soda and juices. ?2. Each shake would be drunk slowly in a period of 2 hours. ?3. Cut each bar in 4 pieces and eat each piece in 30 min to make each bar last 2 hours. ?4. I emphasized the importance of measuring accurately the food portion and measure it carefully when serving the food on the plate ?5. The meal portions include 10 full-size forks of meat and 10 full-size forks of salad. You should always eat the meat portion but you can skip the forks of salad/vegetables and replace with a fruit if you like. The less you do it the better weight loss will be. ?6. One full-size fork is what can be scooped on the fork without falling aside and not what can be bit with the fork. Use regular forks like those you find in a typical restaurant. ?7.? Please send me weight measurements as soon as possible and then once a week. Always include your diet and exercise plan. Alternatively come weekly at the office for weight checks and send me the measurements. ?8. Exercise counseling:? Begin by watching a stretching for beginner?s video.? Start slowly and begin to stretch your muscles.? You should do this before and after each exercise session to prevent injury.? Please use the exercise equipment at your building. Start elliptical with a resistance of 2. Increase resistance by 1 every 3 min to your most comfortable resistance with a max resistance of 8.? Reduce the resistance by 1 every 3 minutes back down to 2 and repeat cycles for 300 calories. Alternatively, start treadmill with a speed of 3.0 and incline of 0, increasing incline by 1 every 3 minutes to the highest comfortable level (max 6 for now) then decrease in the same fashion.? Repeat process to a goal of 300 calories.? Goal of 2000 calories burned or more weekly.? You may also consider use of the stationary bike.? The easiest would be to choose the fat-burn or interval training program on the machine and do this until you reach the 300 calorie goal.? Alternatively, you can manually adjust the resistance in a similar fashion as mentioned above, (resistance of 2-8 with a goal speed of 12 mph).?Tracking calories is essential. 9. Alternatively, start walking outside daily, tracking calories with a goal of 300 calories per day, daily. If [id number] is needed, you can start there, but the goal is DAILY. You can download the liudmila?Home Inventory S[pecialists?which can track your time, distance and calories while walking outside.? You press start in the liudmila when you start and then stop when you are finished. ? 10.? It is important to avoid and for at least 18 months postoperatively and it has been discussed at the information session 11. Please get labs, EKG and chest X-Ray within 1 week. 12. Discussed and answered all questions regarding?obtained consent to participate in the [place] [facility]?Registry. 13. Please follow the diet plan exactly, without any change.? If you do not like something about the plan or you feel hungry, you need to communicate with me so I can help you revise the plan.? You should not change the plan yourself. 14. Goal is to lose 1.5-2.0 lbs/week 15. Goal is to lose 10% of your weight before surgery, which is about 24 lbs. Ultimate weight goal: 218 lbs before surgery.? Remember that you may need to lose more weight to qualify for surgery if your abdominal ultrasound shows your liver or spleen are enlarged or if your upper GI shows a hiatal hernia. If you are considering Orbera Gastric Balloon, your pre-procedure weight goals & post-procedure activity may need to be temporarily modified. IF YOU EXPERIENCE PAIN, SEVERE SHORTNESS OF BREATH, DIZZINESS OR LIGHTHEADEDNESS, OR SIGNIFICANT CONSTIPATION OR DIARRHEA, (DIARRRHEA CAN OCCUR FROM SOME ARTIFICIAL SWEETENERS) PLEASE NOTIFY THE OFFICE! If you have diabetes, you will need to follow your blood sugars at least twice a day (morning & evening, or as needed if you are shaky/sweaty or feel hypoglycemic).? Please discuss with Dr. Blake.? Text Dr. Blake at [phone] If you have hypertension/high blood pressure, you will need to monitor your blood pressure regarding adjusting medications.? Please discuss with Dr. Blake.? We encourage patients to track calories burned while exercising as this is a more proven method verses ?steps? or ?miles walked? apps.? Patients who have dedicated exercise time at regular intervals throughout the week have greater weight loss then patients who hope that being active at work or through their day will result in weight loss.? Your body has adapted to your current life & you need to add regular exercise, just like you added a healthier diet for your health goals. A rowing machine can be used at this time, however, remember that if you decide to have an operation, this activity would be restricted for a month to minimize hernia. Resistance training (weight lifting) is helpful to reach your goal, strengthen your bones or if your weight loss has stalled (reached a plateau) by both burning calories & adding muscle, which increases your metabolism.? Chest, back & thigh muscles can be exercised at home or at a gym.? Please discuss your goals with Dr. Blake or a qualified circus trainer at your local gym. ?Remember that if you decide to have an operation, this activity would be restricted for a month postoperatively. YouTube options: ?Sit to Be Fit, Daily Burn, [place], Walk away the pounds, The Body Project Websites: Sit and Be Fit? https://www.sitandbefit.org/ Go For Life https://ax9gkoy.amada.nih.gov/ Orders: Orders IRON PROFILE Today G47.33 - Obstructive sleep apnea (adult) (pediatric), Z68.41 - Body mass index [BMI] 40.0-44.9, adult Zinc Today G47.33 - Obstructive sleep apnea (adult) (pediatric), Z68.41 - Body mass index [BMI] 40.0-44.9, adult Comprehensive Met. Panel Today G47.33 - Obstructive sleep apnea (adult) (pediatric), Z68.41 - Body mass index [BMI] 40.0-44.9, adult Ferritin Today G47.33 - Obstructive sleep apnea (adult) (pediatric), Z68.41 - Body mass index [BMI] 40.0-44.9, adult Vitamin D 25-OH Total Today G47.33 - Obstructive sleep apnea (adult) (pediatric), Z68.41 - Body mass index [BMI] 40.0-44.9, adult ECG 12 lead EKG Today G47.33 - Obstructive sleep apnea (adult) (pediatric), Z68.41 - Body mass index [BMI] 40.0-44.9, adult FL upper GI w air Today G47.33 - Obstructive sleep apnea (adult) (pediatric), Z68.41 - Body mass index [BMI] 40.0-44.9, adult Insulin Today G47.33 - Obstructive sleep apnea (adult) (pediatric), Z68.41 - Body mass index [BMI] 40.0-44.9, adult Lipid Panel Today G47.33 - Obstructive sleep apnea (adult) (pediatric), Z68.41 - Body mass index [BMI] 40.0-44.9, adult Complete Blood Count Auto Diff Today G47.33 - Obstructive sleep apnea (adult) (pediatric), Z68.41 - Body mass index [BMI] 40.0-44.9, adult Vitamin B12 and Folate Today G47.33 - Obstructive sleep apnea (adult) (pediatric), Z68.41 - Body mass index [BMI] 40.0-44.9, adult Vitamin B1 Today G47.33 - Obstructive sleep apnea (adult) (pediatric), Z68.41 - Body mass index [BMI] 40.0-44.9, adult Vitamin A Today G47.33 - Obstructive sleep apnea (adult) (pediatric), Z68.41 - Body mass index [BMI] 40.0-44.9, adult C Reactive Protein Today G47.33 - Obstructive sleep apnea (adult) (pediatric), Z68.41 - Body mass index [BMI] 40.0-44.9, adult PTHI Today G47.33 - Obstructive sleep apnea (adult) (pediatric), Z68.41 - Body mass index [BMI] 40.0-44.9, adult H Pylori Breath Test Today G47.33 - Obstructive sleep apnea (adult) (pediatric), Z68.41 - Body mass index [BMI] 40.0-44.9, adult Hemoglobin A1c Today G47.33 - Obstructive sleep apnea (adult) (pediatric), Z68.41 - Body mass index [BMI] 40.0-44.9, adult US abdomen comp w elastography Today G47.33 - Obstructive sleep apnea (adult) (pediatric), Z68.41 - Body mass index [BMI] 40.0-44.9, adult XR chest 2V Today G47.33 - Obstructive sleep apnea (adult) (pediatric), Z68.41 - Body mass index [BMI] 40.0-44.9, adult Referrals Pulmonary Medicine Referral G47.33 - Obstructive sleep apnea (adult) (pediatric), Z68.41 - Body mass index [BMI] 40.0-44.9, adult Coding Level of Care Code New Pt Level 5 (50447) Diagnoses BMI 40.0-44.9, adult Z68.41 MANDIE (obstructive sleep apnea) G47.33 Non-restorative sleep G47.8 Anxiety and depression F41.9; F32.A Hypothyroidism E03.9 High cholesterol E78.00 Graves disease E05.00 Anxiety F41.9
[2023-07-14 15:04] VITALS: BP 122/78; PULSE 83; TEMP 36.3; O2SAT 96; BMI 41.6
== END 2023-07-14 17:35 | disposition home or self-care (01) ==
PROVIDERS: PCP Hospitalist; Visit Provider Surgery
DX: E66.01 Morbid (severe) obesity due to excess calories (principal); Z68.41 Body mass index [BMI] 40.0-44.9, adult; G47.33 Obstructive sleep apnea (adult) (pediatric); E78.00 Pure hypercholesterolemia, unspecified; E05.00 Thyrotoxicosis with diffuse goiter without thyrotoxic crisis or storm
CPT/HCPCS: 99205

== ENCOUNTER → 2023-07-14 14:54 | Outpatient (BNVA) | payer BC, SELFPAY | PROVIDERS: PCP Hospitalist; Visit Provider Surgery ==

== ENCOUNTER 2023-07-29 11:14 | Outpatient (REF) | payer BC, SELFPAY ==
[2023-07-29 14:22] LABS: MANUAL DIFF FLAG NO
[2023-07-29 14:30] LABS: Basophils Percent Auto 0.6 % (0-2); Eosinophils Absolute Auto 0.2 X10*3/uL (0.0-0.4); Eosinophils Percent Auto 2.1 % (0-4); Hematocrit 42.9 % (37.0-47.0); Hemoglobin 14.1 g/dl (12.0-16.0); Imm Gran Abs Auto 0.02 X10*3/uL (0.00-0.03); Imm Gran Pct Auto 0.3 % (0.0-0.4); Lymphocytes Absolute Auto 1.7 X10*3/uL (1.2-4.9); Lymphocytes Percent Auto 23.6 % (20-40); Mean Corpuscular HGB Conc 32.9 g/dl (31.0-35.0); Mean Corpuscular Hemoglobin 29.9 pg (27.0-33.0); Mean Corpuscular Volume 90.9 fL (80.0-98.0); Mean Platelet Volume 8.5 fL (9.4-12.3); Monocytes Absolute Auto 0.4 X10*3/uL (0.1-1.2); Neutrophils Absolute Auto 4.7 x10*3/uL (2.0-8.3); Neutrophils Percent Auto 67.4 % (45-73); Platelet Count 341 X10*3/uL (160-400); Red Blood Count 4.72 X10*6/uL (4.20-5.50); Red Cell Distribution Width 12.7 % (11.0-16.0)
[2023-07-29 14:48] LABS: Glucose Fasting 99 mg/dL (60-99)
[2023-07-29 14:52] LABS: Alanine Aminotransferase 21 U/L (0-31); Albumin Level 4.1 g/dL (3.5-5.0); Alkaline Phosphatase 99 U/L (39-117); Anion Gap 9 (12-20); Aspartate Amino Transferase 23 U/L (5-31); Bilirubin Total 0.6 mg/dL (0.0-1.0); Blood Urea Nitrogen 10 mg/dL (9-16); C Reactive Protein 1.63 mg/dL (< or = 0.50); Calcium 8.9 mg/dL (8.4-10.2); Carbon Dioxide 26 mmol/L (22-29); Chloride 108 mmol/L (96-108); Cholesterol 240 mg/dL (<200); Estimated Glomerular Filt Rate > 60; Glucose Random 99 mg/dL (60-115); HDL Cholesterol 50 mg/dL (>40); Iron 83 mcg/dL (30-160); LDL Cholesterol Calculated 164 mg/dL (<100); Percent Iron Saturation 23 % (15-50); Potassium 3.9 mmol/L (3.3-5.1); Sodium 139 mmol/L (135-145); Total Iron Binding Capacity 356 mcg/dL (228-428); Total Protein 7.6 g/dL (6.5-8.0); Triglycerides 132 mg/dL (<150); Unsaturated Iron Binding 273 ug/dL
[2023-07-29 15:01] LABS: TSH reflex Free T4 0.19 uIU/mL (0.32-4.0)
[2023-07-29 15:02] LABS: Ferritin 49 ng/mL (10-122); Insulin 12 uU/mL (2-29); Vitamin D 25-OH Total 83.7 ng/mL (>30)
[2023-07-29 15:10] LABS: Estimated Average Glucose 108 mg/dL; Hemoglobin A1c % 5.4 % (<6.0)
[2023-07-29 15:18] LABS: Folate 7.3 ng/mL (> or = 4.0); Vitamin B12 1114 pg/mL (200-900)
[2023-07-29 15:38] LABS: Free T4 (Free Thyroxine) 1.36 ng/dL (0.71-1.85)
[2023-08-01 17:17] LABS: PTHI 35 pg/mL (16-77)
[2023-08-01 20:28] LABS: Thyroid Peroxidase Antibodies 111 IU/mL (<9)
[2023-08-02 06:04] LABS: Zinc 80 mcg/dL (60-130)
[2023-08-04 04:53] LABS: Vitamin A 42 mcg/dL (38-98)
[2023-08-04 10:16] LABS: H Pylori Breath Test Negative (Negative)
[2023-08-05 16:03] LABS: Vitamin B1 22 nmol/L (8-30)
== END 2023-07-29 11:15 | disposition home or self-care (01) ==
LOC: HO.WFDLDS 11:14
PROVIDERS: Nurse Practitioner Family; Visit Provider Surgery
DX: G47.33 Obstructive sleep apnea (adult) (pediatric) (principal); R79.89 Other specified abnormal findings of blood chemistry; R73.01 Impaired fasting glucose; E78.00 Pure hypercholesterolemia, unspecified; F41.9 Anxiety disorder, unspecified; F32.A Depression, unspecified; E05.00 Thyrotoxicosis with diffuse goiter without thyrotoxic crisis or storm
CPT/HCPCS: 36415; 80053; 80061; 82306; 82607; 82728; 82746; 82947; 83013; 83036; 83525; 83540; 83970; 84425; 84439; 84443; 84590; 84630; 85025; 86140; 86376

== ENCOUNTER 2023-07-29 14:41 | Outpatient (AMB) | payer BC, SELFPAY ==
--- NOTE | 2023-07-29 14:44 | MHC.OFFVISWM ---
Intake VS Expanded 07/29/23 14:55 BP 134/91 H Blood Pressure Location Rt brachial Blood Pressure Position Sitting Pulse 84 Pulse Source Pulse Oximeter Temp 96.9 F Temperature Source Tympanic Pulse Oximetry 96 Oxygen Delivery Method Room Air Height 5 ft 4 in Weight 239 lb 3.2 oz BMI 41.1 Body Fat % 45.8 Body Fat Mass 45.8 Fat Free Mass 109.6 Visceral Fat Rating 12.0 Body Water % 38.8 Body Water Mass 92.8 Muscle Mass/Score 122.8 Basal Metabolic Rate/Score 1,844 Intake Visit Reasons: (OV) Gastric Balloon Allergies sertraline Allergy (Unknown, Verified 07/13/23 15:54) Rash HPI HPI Comments History of Present Illness Details Intake Template This is a 32 year old woman who is here to start SWL program with SWL classes. Her goal is to address her obesity and health related issues which include previously documented obstructive sleep apnea. This test was done in [facility] due to ongoing sleep issues in 2020. The patient noted no improvement with CPAP, so she was advised to lose weight. ? She reports first being concerned about her weight 3rd to 4th grade.? She has tried multiple methods of weight loss including WW, Nutrasystem, HerbaLife, New Wave, has transiently been on phentermine in 2016, all without permanent results. She lives with her & 4 children (age 16 to 5 yrs). ??Heaviest weight: Was this summer at 253 lb in April,. Insurance: BC/BS? Bariatric surgery coverage: Y?Pt may be interested in gastric balloon but has concerns regarding the cost. She notes a family member with a BMI over 50 recently had a gastric bypass. Patient and her /family moved from [facility] to be near her 's family Susan JAMES. 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 Intolerance of dairy/lactose:?? will eat yogurt & cottage cheese, does not care for milk Gluten Sensitivity:? No?Celiac? No; she notes being diagnosed with a Lynn's yeast allergy during allergy testing. PMH: Graves, treated & now hypothyroid, MANDIE (CPAP ordered in [place], not using) Depression (patient is on a new medication that is causing sleep issues and fatigue) follow-up regarding her depression medication is with her PCP in 2 weeks. PSH: dental extraction, no intra-abdominal surgery She wakes at:???usually 0500, currently [id number]?bed at: 8:30pm-10pm Breakfast:??skips? snack: none Lunch:?Shake or salad? snack: popcorn or protein bar Dinner:???chicken or meat with pasta, vegs? snack: doesn't typically eat sweets After dinner: none Other snacks: Liquids: 32oz morning coffee with Premiere protein drink (no milk, cream or sugar) Alcohol intake: ?minimal? nicotine: ?denied? marijuana:?denied? drugs:???denied? caffeine: 32oz coffee Exercise: Patient has exercise bands, weights, a rowing machine and a [employer] fitness liudmila on her phone but due to fatigue related to her depression medications is not currently regularly exercising. She did obtain a treadmill that has incline option and calorie burning function in the importance of exercising with a goal of burning 2000 calories per week was reviewed. Patient also notes improvement in her mental/emotional well-being with adjustment of medications and has a follow-up with her counselor regarding this concern. The patient's was unable to make today's appointment; patient noted they would try for the follow-up visit. Last mammogram: +FH breast cancer in maternal relatives under age 50y; has one mammo (neg) Last pap smear: 2022 control method: had vasectomy Colonoscopy: N/A, no symps ASH: 4 ESS: 7 GERD: 2 QOL: 116 PFSH Medical History Hypothyroidism Sleep apnea Graves disease Depression Anxiety Surgical History History of surgery History of wisdom tooth extraction History of sinus surgery Family History Father No family history of mental disorder Diabetes Mother No family history of mental disorder Breast cancer Daughter No problems noted. Daughter No problems noted. Son No problems noted. 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 Sexual orientation: Straight/Heterosexual Gender identity: Female Cognitive needs: No Hearing needs: No Vision needs: No Review of Systems Const All systems reviewed & are unremarkable except as noted in HPI and below Reports as per HPI Physical Exam On exam she is nontoxic Sclera anicteric She is in no acute respiratory distress Abdomen is obese Multiple professional tattoos are noted Results Reviewed Results Reviewed: labs Hb 14.1, N/N, Plts 341K, wbc 7.0 B12, vitamin-D, folate within normal limits Hemoglobin A1c 5.4 Insulin 12 BUN 10, creatinine 0.76, electrolytes within normal parameters, LFTs within normal parameters Patient's cholesterol is elevated 240, LDL is elevated 164, CRP elevated 1.63 Assessment & Plan Assessment & Plan (1) BMI 40.0-44.9, adult: Code(s): Z68.41 - Body mass index [BMI] 40.0-44.9, adult (2) Anxiety and depression: Code(s): F41.9 - Anxiety disorder, unspecified; F32.A - Depression, unspecified (3) MANDIE (obstructive sleep apnea): Code(s): G47.33 - Obstructive sleep apnea (adult) (pediatric) (4) Non-restorative sleep: Code(s): G47.8 - Other sleep disorders (5) Low TSH level: Code(s): R79.89 - Other specified abnormal findings of blood chemistry (6) Elevated LDL cholesterol level: Code(s): E78.00 - Pure hypercholesterolemia, unspecified (7) High cholesterol: Code(s): E78.00 - Pure hypercholesterolemia, unspecified (8) Graves disease: Code(s): E05.00 - Thyrotoxicosis with diffuse goiter without thyrotoxic crisis or storm (9) Anxiety: Code(s): F41.9 - Anxiety disorder, unspecified Plan I spent 46 minutes with the patient reviewing her lab results, reviewing options including Orbera gastric balloon verses sleeve gastrectomy in the importance of following her meal plan and trending and increased activity/exercise calorie expenditure. Unfortunately, the patient did not receive the meal plan that was emailed to her and she also notes that she deleted her emails so this was hand delivered today and her questions seemed to be satisfactorily answered. Exercise recommendations using her treadmill were also provided. Patient remains interested in both sleeve gastrectomy and Orbera balloon. She did voice concern over the cooper of the balloon and out of pocket expense and asked about a payment plan. She also notes she would like her to be present so we will review options again at her follow-up appointment in 3 weeks. Coding Level of Care Code Est Pt Level 4 (88086) Diagnoses BMI 40.0-44.9, adult Z68.41 Anxiety and depression F41.9; F32.A MANDIE (obstructive sleep apnea) G47.33 Non-restorative sleep G47.8 Low TSH level R79.89 Elevated LDL cholesterol level E78.00 High cholesterol E78.00 Graves disease E05.00 Anxiety F41.9 Time Spent (min) 46
[2023-07-29 14:55] VITALS: BP 134/91; PULSE 84; TEMP 36.1; O2SAT 96; BMI 41.1
== END 2023-07-29 16:44 | disposition home or self-care (01) ==
PROVIDERS: PCP Hospitalist; Visit Provider Surgery
DX: E66.01 Morbid (severe) obesity due to excess calories (principal); Z68.41 Body mass index [BMI] 40.0-44.9, adult
CPT/HCPCS: 99215

== ENCOUNTER 2023-08-10 08:56 | Outpatient (AMB) | payer BC, SELFPAY ==
--- NOTE | 2023-08-10 09:00 | MHC.OFFVIS ---
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 Shellfish Meats offered & declined Accompanied by: Self / Same As Patient Allergies avocado Allergy (Severe, Verified 08/10/23 09:07) Itching sertraline Allergy (Unknown, Verified 08/10/23 09:07) Rash Medication List - Last Reconciled 08/10/23 by Safia Harmon LPN ascorbate calcium (vitamin C) 500 mg PO DAILY bupropion HCl (Wellbutrin XL) 150 mg PO QAM cholecalciferol (vitamin D3) mcg PO escitalopram oxalate (Lexapro) 20 mg PO DAILY 30 days fluticasone propionate 50 mcg/actuation 1 spray intranasal DAILY lactobacillus combo no.11 (Probiotic) 1 cap PO DAILY levothyroxine (Synthroid) 150 mcg PO DAILY 30 days loratadine (Claritin) 10 mg PO DAILY multivitamin 1 tab PO DAILY vitamin B complex 1 tab PO DAILY HPI Obstructive sleep apnea HPI Details Carrie is a pleasant 32 year old female, minimal former smoker in her 20s, with underlying obstructive sleep apnea. She was referred for pulmonary evaluation to address her MANDIE. She reportedly had a sleep study a few years ago when living in [place] and was prescribed a CPAP machine, but states it was discontinued as she was told to lose weight. Of note, she is followed by medical weight management, as she is aware obesity can contribute to MANDIE. She continues to report morning headaches, loud snoring and daytime fatigue. She denies any respiratory symptoms at this time. She denies any prior history of respiratory conditions. She reports sister with asthma, otherwise no other pertinent family history. [facility] Medical History Hypothyroidism Sleep apnea Graves disease Depression Anxiety Surgical History History of surgery History of wisdom tooth extraction History of sinus surgery Family History Father No family history of mental disorder Diabetes Mother No family history of mental disorder Breast cancer Daughter No problems noted. Daughter No problems noted. Son No problems noted. 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 Sexual orientation: Straight/Heterosexual Gender identity: Female Cognitive needs: No Hearing needs: No Vision needs: No Review of Systems Const Denies chills, Denies excessive sweating, Denies fever(s), Denies headache(s) and Denies night sweats Eyes Denies dry eyes, Denies irritation and Denies itchy eyes ENT Reports Normal hearing present, Denies headache(s), Denies nasal congestion, Denies nasal discharge, Denies post nasal drip and Denies sore throat Card Denies chest pain, Denies chest pain at rest, Denies chest pain with activity, Denies claudication, Denies leg edema, Denies dyspnea, Denies dyspnea on exertion, Denies orthopnea and Denies paroxysmal nocturnal dyspnea Resp Denies chest congestion, Denies cough, Denies excessive phlegm production, Denies pain on inspiration, Denies pain with cough, Denies dyspnea, Denies dyspnea on exertion, Denies stridor and Denies wheezing Musc Denies myalgias Neuro Reports Normal hearing present and Denies headache(s) Endo Denies excessive sweating Aly/Lymph Denies lymphadenopathy Aller/Immun Denies itchy eyes, Denies seasonal rhinorrhea and Denies wheezing Physical Exam Vital Signs: Last Vital Signs Pulse 92 08/10/23 09:01 BP 128/74 08/10/23 09:01 Pulse Ox 98 08/10/23 09:01 Oxygen Delivery Method Room Air 08/10/23 09:01 BMI result Body Mass Index 40.3 Const General: cooperative, healthy appearing, comfortable, no acute distress, well developed and alert Nutritional Appearance: obese Orientation/consciousness: patient oriented x3 Limitations: no limitations HEENT Head: Yes normal to inspection, Yes normocephalic and Yes atraumatic Ears: hearing grossly normal bilaterally and external ears normal Eyes General: appearance normal, both eyes and all related structures Eyelids: Yes eyelids normal Sclerae: sclerae normal EOM: EOMs intact bilaterally Neck Neck: Yes normal visual inspection and Yes no lymphadenopathy Lymphatic: no lymphadenopathy noted Chest Chest palpation & inspection: normal inspection of the chest Resp Effort & Inspection: normal respiratory effort, able to speak in complete sentences, no audible wheezes, no cough, no stridor, not tachypneic, no tripod positioning and no use of accessory muscles Auscultation: clear to auscultation bilaterally Cardio Jugular venous distension: no JVD Rate: regular rate Rhythm: regular rhythm Skin Other: warm, dry General skin exam: no rashes or lesions noted Neuro General: patient oriented x3 Cranial nerves: Yes Normal hearing present Cognition (Neuro): normal cognition Gait exam (Neuro): Normal gait present Extrem General: Yes normal to inspection, Yes capillary refill normal, Yes no clubbing, cyanosis or edema and Yes no pedal edema Psych Appearance: grossly normal and well kempt Speech and movement: Normal speech and movement present and Clear speech present Affect: normal affect Attitude: cooperative Thought process: Normal thought process present Thought content: Normal thought content present Insight: Good insight present (Psych) Judgement: Good judgement present (Psych) Assessment & Plan Assessment & Plan (1) Loud snoring: Code(s): R06.83 - Snoring (2) BMI 40.0-44.9, adult: Code(s): Z68.41 - Body mass index [BMI] 40.0-44.9, adult Plan Carrie's symptoms are likely related to obstructive sleep apnea. Will send for home sleep study and follow up to review results. All questions were answered and patient is in agreement of plan. Orders: Orders RT home sleep study Today R06.83 - Snoring, Z68.41 - Body mass index [BMI] 40.0-44.9, adult Coding Level of Care Code New Pt Level 3 (86272) Diagnoses Loud snoring R06.83 BMI 40.0-44.9, adult Z68.41
[2023-08-10 09:01] VITALS: BP 128/74; PULSE 92; O2SAT 98; BMI 40.3
== END 2023-08-10 09:19 | disposition home or self-care (01) ==
PROVIDERS: PCP Nurse Practitioner Family; Visit Provider Nurse Practitioner Family
DX: R06.83 Snoring (principal); Z68.41 Body mass index [BMI] 40.0-44.9, adult
CPT/HCPCS: 99203

== ENCOUNTER → 2023-08-10 08:56 | Outpatient (BNVA) | payer BC, SELFPAY | PROVIDERS: PCP Nurse Practitioner Family; Visit Provider Nurse Practitioner Family ==

== ENCOUNTER 2023-08-15 09:57 | Outpatient (REF) | payer BC, SELFPAY ==
--- NOTE | ~2023-08-15 | US_ITS ---
EXAMINATION: US COMPLETE ABDOMEN WITH LIVER ELASTOGRAPHY CLINICAL INFORMATION: BMI of 40.0-44.9. COMPARISON: None available. TECHNIQUE: Real-time imaging of the abdominal viscera. Noninvasive ultrasound liver fibrosis assessment is performed using Osmin ElastPQ point quantification shear wave elastography (2D-SWE) with a C5-2 MHz transducer. Multiple elastography samples are obtained. FINDINGS: PANCREAS: Normal. The visualized pancreatic head and body are normal in appearance. The remainder of the pancreas is obscured from visualization by the overlying bowel gas. ABDOMINAL AORTA: The proximal, middle, and distal aortic segments are normal in caliber. INFERIOR VENA CAVA: Visualized portions are normal. LIVER: The liver demonstrates normal size, contour and increased echogenicity. No focal lesion or intrahepatic biliary duct dilatation. The right lobe measures 14.3 cm in length. The left lobe measures 10.6 cm in length. Portal flow is towards the liver (hepatopetal). Shear wave liver elastography median stiffness is 1.3 m/s (reference: normal median stiffness is 1.3 m/s or less). IQR/median stiffness to assess sampling precision is 0.07 (reference: good quality data set is IQR/median stiffness of 0.15 or less). GALLBLADDER: Normal. The gallbladder is physiologically distended without evidence of stones, sludge, polyps, wall thickening or pericholecystic fluid. COMMON BILE DUCT: Normal in caliber measuring 0.3 cm in diameter. RIGHT KIDNEY: Normal. No hydronephrosis. No renal calculi or focal parenchymal lesions. The kidney measures 11.9 cm in maximum dimension. LEFT KIDNEY: Normal. No hydronephrosis. No renal calculi or focal parenchymal lesions. The kidney measures 11.8 cm in maximum dimension. SPLEEN: Normal. The spleen measures 12.2 cm in maximum dimension. FREE FLUID: None. US/US abdomen comp w elastography IMPRESSION: 1. There is generalized increase in hepatic echotexture, consistent with fatty infiltration or hepatocellular disease. Please correlate clinically. No focal hepatic mass or intrahepatic biliary dilatation is seen. 2. Liver elastography: In the absence of other known clinical signs, measurements rule out compensated advanced chronic liver disease. If there are known clinical signs, further testing may be needed for confirmation. REFERENCE: Society of Radiologists in Ultrasound Liver Stiffness Thresholds (2020): LIVER STIFFNESS THRESHOLDS: *Liver Stiffness equal or less than 1.3 m/s: High probability of being normal. *Liver Stiffness less than 1.7 m/s: In the absence of other known clinical signs, rules out compensated advanced chronic liver disease. *Liver Stiffness 1.7-2.1 m/s: Suggestive of compensated advanced chronic liver disease but need further test for confirmation. *Liver Stiffness over 2.1 m/s: Rules in compensated advanced chronic liver disease. *Liver Stiffness over 2.4 m/s: Suggestive of clinically significant portal hypertension. QUALITY OF DATA SET: *IQR/Median value equal or less than 0.15 implies a quality data set. *IQR/Median value over 0.15 implies a poor quality data set. SIGNIFICANT CHANGE FROM PRIOR EXAM: Significant change if liver stiffness measurement is 10% or greater from prior exam. OTHER CONSIDERATIONS: The stage of liver fibrosis may be overestimated in the setting of acute hepatitis, liver inflammation, elevated liver function tests, hepatic vascular congestion, obstructive cholestasis, non-fasting state, and infiltrative diseases such as amyloidosis and lymphoma. In some patients with NAFLD, the liver stiffness thresholds for compensated advanced chronic liver disease may be lower. In causes other than viral hepatitis and NAFLD, liver stiffness thresholds are not well established.
--- NOTE | ~2023-08-15 | XR_ITS ---
EXAMINATION: XR CHEST CLINICAL INFORMATION: Elevated by mass index COMPARISON: None available. TECHNIQUE: 2 views of the chest were obtained. FINDINGS: No focal consolidation. No pneumothorax. Trachea is midline. Cardiac mediastinal silhouette is not enlarged. No large pleural effusion. Osseous structures are intact. Soft tissues are unremarkable. XR/XR chest 2V IMPRESSION: No acute cardiopulmonary process.
== END 2023-08-15 09:58 | disposition home or self-care (01) ==
LOC: HO.US 09:57
PROVIDERS: PCP Nurse Practitioner Family; Visit Provider Surgery
DX: G47.33 Obstructive sleep apnea (adult) (pediatric) (principal)
CPT/HCPCS: 71046; 76705; 76981

== ENCOUNTER 2023-08-15 15:34 | Outpatient (AMB) | payer BC, SELFPAY ==
--- NOTE | 2023-08-15 15:35 | MHC.OFFVISWM ---
Intake VS Expanded 08/15/23 15:54 BP 160/83 H Blood Pressure Location Rt brachial Blood Pressure Position Sitting Pulse 78 Pulse Source Pulse Oximeter Temp 97.4 F Temperature Source Tympanic Pulse Oximetry 95 Oxygen Delivery Method Room Air Height 5 ft 4 in Weight 232 lb 3.2 oz BMI 39.9 Body Fat % 45.4 Body Fat Mass 105.6 Fat Free Mass 127.0 Visceral Fat Rating 11.0 Body Water % 39.1 Body Water Mass 91.0 Muscle Mass/Score 120.6 Basal Metabolic Rate/Score 1,807 Intake Visit Reasons: (OV) Gastric Balloon Allergies avocado Allergy (Severe, Verified 08/10/23 09:07) Itching sertraline Allergy (Unknown, Verified 08/10/23 09:07) Rash HPI HPI Comments History of Present Illness Details The patient returns for follow-up and is considering Orbera gastric balloon verses laparoscopic sleeve gastrectomy. She is accompanied by her today and she requested that I speak freely in candidly regarding her history of obesity and related health issues. Patient presented to the surgical weight loss program and a weight of 242.6 lb/BMI 41.6 07/14/2023 with interest in Orbera balloon. She also wanted Education regarding bariatric surgery and has been provided with a meal plan. Patient notes that her greatest challenges have been a lack of energy as her medications are being adjusted by her provider. She has morning fatigue that is thought to be related to her Lexapro and has been changed to Wellbutrin and Prozac may be added, she has a follow-up with her provider this Tuesday. She notes that she is using Premier protein powder mixed with water for her shakes and pure protein bars with 1 meal. She tried it measuring forks as directed but notes that she has difficulty with the concept and finds it easier to wait 3 oz of meat with 3 oz of vegetables each night. Preop work-up [facility] classes __ /8 RD Labs H. pylori neg EKG CXR read pending Abd U/S read pending UGI pending Insurance: BC/BS? Bariatric surgery coverage: Y?Pt may be interested in gastric balloon but has concerns regarding the cost. She notes a family member with a BMI over 50 recently had a gastric bypass. Patient and her /family moved from [facility] to be near her 's family Susan JAMES. 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 PMH: Graves, treated & now hypothyroid, MANDIE (CPAP ordered in [place], not using) Depression (patient is on a new medication that is causing sleep issues and fatigue) follow-up regarding her depression medication is with her PCP in 2 weeks. PSH: dental extraction, no intra-abdominal surgery Meal plan: Start with? Premier Protein shakes First shake at 7am-9am (2 scoops in 20 oz unsweetened almond milk) 7-9am Second shake, (2 scoops in 20 oz unsweetened almond milk) at Noon-2pm 1 protein bar ?bars at 3-4pm. Dinner at 4pm (9 forks of protein and 10 forks of salad/vegetables). Meal to include lean meat (beef, fish, pork, turkey, chicken), cooked vegetables or a salad with olive oil and/or fruits (berries, pears, apples, kiwi). Exercise: Patient has exercise bands, weights, a rowing machine and a [employer] fitness liudmila on her phone but due to fatigue related to her depression medications is not currently regularly exercising. She did obtain a treadmill that has incline option and calorie burning function in the importance of exercising with a goal of burning 2000 calories per week was reviewed. She notes that she is walking for 15-20 minute and burning approximately 90 kcal per session. She is currently doing this every day. Patient also notes improvement in her mental/emotional well-being with adjustment of medications and has a follow-up with her counselor regarding this concern 08/19/23. Last mammogram: +FH breast cancer in maternal relatives under age 50y; has one mammo (neg) Last pap smear: 2022 control method: had vasectomy Colonoscopy: N/A, no symps ASH: 4 ESS: 7 GERD: 2 QOL: 116 PFSH Medical History Hypothyroidism Sleep apnea Graves disease Depression Anxiety Surgical History History of surgery History of wisdom tooth extraction History of sinus surgery Family History Father No family history of mental disorder Diabetes Mother No family history of mental disorder Breast cancer Daughter No problems noted. Daughter No problems noted. Son No problems noted. 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 Sexual orientation: Straight/Heterosexual Gender identity: Female Cognitive needs: No Hearing needs: No Vision needs: No Review of Systems Const All systems reviewed & are unremarkable except as noted in HPI and below Reports as per HPI Physical Exam On exam she is nontoxic Sclera anicteric She is in no acute respiratory distress Abdomen is obese Multiple professional tattoos are noted Results Reviewed Results Reviewed: labs Hb 14.1, N/N, Plts 341K, wbc 7.0 B12, vitamin-D, folate within normal limits Hemoglobin A1c 5.4 Insulin 12 BUN 10, creatinine 0.76, electrolytes within normal parameters, LFTs within normal parameters Patient's cholesterol is elevated 240, LDL is elevated 164, CRP elevated 1.63 Diagnostic Imaging CXR 08/15/23 pending read Abd U/S pending read UGI: pending Assessment & Plan Assessment & Plan (1) BMI 40.0-44.9, adult: Code(s): Z68.41 - Body mass index [BMI] 40.0-44.9, adult (2) Elevated fasting glucose: Code(s): R73.01 - Impaired fasting glucose (3) MANDIE (obstructive sleep apnea): Code(s): G47.33 - Obstructive sleep apnea (adult) (pediatric) (4) Non-restorative sleep: Code(s): G47.8 - Other sleep disorders (5) Low TSH level: Code(s): R79.89 - Other specified abnormal findings of blood chemistry (6) Elevated LDL cholesterol level: Code(s): E78.00 - Pure hypercholesterolemia, unspecified (7) Anxiety and depression: Code(s): F41.9 - Anxiety disorder, unspecified; F32.A - Depression, unspecified (8) Hypothyroidism: Code(s): E03.9 - Hypothyroidism, unspecified (9) High cholesterol: Code(s): E78.00 - Pure hypercholesterolemia, unspecified (10) Anxiety: Code(s): F41.9 - Anxiety disorder, unspecified (11) Graves disease: Code(s): E05.00 - Thyrotoxicosis with diffuse goiter without thyrotoxic crisis or storm Plan Using both a teaching retail services professional and Orbera model, reviewed the importance of diet and increased activity/exercise to augment any type of weight loss, and reviewed the options of medical management, medications, Orbera balloon, and surgical options including gastric bypass and sleeve gastrectomy. But the patient and her noted that the temporary nature of the balloon and upfront cost is less appealing to them. Patient also notes that she has been following balloon patients on social media that are having difficulties and not losing weight, so she is not interested in balloon at this point. The risks and benefits of sleeve gastrectomy versus gastric bypass were discussed and the importance of following a meal plan and exercising with a goal of burning approximately 300 kcal per session, minimum of 4 times a week was discussed. Patient notes she is interested in a sleeve gastrectomy and would like to officially enter the surgical weight loss program. The inherent risks of weight regain if maladaptive eating and sedentary behavior resume, as well as risks of bleeding, infection, fatal PE/DVT were discussed. Medications such as Ozempic were discussed. The patient seemed understand her options and her 's questions seemed to be satisfactorily answered. Her sleep study follow-up titration is currently pending; the patient is a follow-up with her mental health care provider who was adjusting her medications. Given her fatigue and depression/anxiety issues at this time, I would recommend that the patient continue the medical aspect of workup, but she notes that she does not have the energy to exercise as much as is recommended. She is in agreement to follow-up with her prescriber regarding adjusting her medications and will see me in 3 weeks. Appointments with our dietitian and behavioral health will be made and she will continue in the program. Orders: Orders ECG 12 lead EKG Today E03.9 - Hypothyroidism, unspecified, E05.00 - Thyrotoxicosis with diffuse goiter without thyrotoxic crisis or storm, E78.00 - Pure hypercholesterolemia, unspecified, F32.A - Depression, unspecified, F41.9 - Anxiety disorder, unspecified, G47.33 - Obstructive sleep apnea (adult) (pediatric), G47.8 - Other sleep disorders, R73.01 - Impaired fasting glucose, R79.89 - Other specified abnormal findings of blood chemistry, Z68.41 - Body mass index [BMI] 40.0-44.9, adult Referrals Behavioral Health Referral E03.9 - Hypothyroidism, unspecified, E05.00 - Thyrotoxicosis with diffuse goiter without thyrotoxic crisis or storm, E78.00 - Pure hypercholesterolemia, unspecified, F32.A - Depression, unspecified, F41.9 - Anxiety disorder, unspecified, G47.33 - Obstructive sleep apnea (adult) (pediatric), G47.8 - Other sleep disorders, R73.01 - Impaired fasting glucose, R79.89 - Other specified abnormal findings of blood chemistry, Z68.41 - Body mass index [BMI] 40.0-44.9, adult Nutrition/Dietitian Referral E03.9 - Hypothyroidism, unspecified, E05.00 - Thyrotoxicosis with diffuse goiter without thyrotoxic crisis or storm, E78.00 - Pure hypercholesterolemia, unspecified, F32.A - Depression, unspecified, F41.9 - Anxiety disorder, unspecified, G47.33 - Obstructive sleep apnea (adult) (pediatric), G47.8 - Other sleep disorders, R73.01 - Impaired fasting glucose, R79.89 - Other specified abnormal findings of blood chemistry, Z68.41 - Body mass index [BMI] 40.0-44.9, adult Coding Level of Care Code Est Pt Level 4 (25938) Diagnoses BMI 40.0-44.9, adult Z68.41 Elevated fasting glucose R73.01 MANDIE (obstructive sleep apnea) G47.33 Non-restorative sleep G47.8 Low TSH level R79.89 Elevated LDL cholesterol level E78.00 Anxiety and depression F41.9; F32.A Hypothyroidism E03.9 High cholesterol E78.00 Anxiety F41.9 Graves disease E05.00
[2023-08-15 15:54] VITALS: BP 160/83; PULSE 78; TEMP 36.3; O2SAT 95; BMI 39.9
== END 2023-08-15 16:41 | disposition home or self-care (01) ==
PROVIDERS: PCP Hospitalist; Visit Provider Surgery
DX: E66.9 Obesity, unspecified (principal); Z68.41 Body mass index [BMI] 40.0-44.9, adult; G47.33 Obstructive sleep apnea (adult) (pediatric); G47.8 Other sleep disorders; R79.89 Other specified abnormal findings of blood chemistry; E78.00 Pure hypercholesterolemia, unspecified; F41.9 Anxiety disorder, unspecified; F32.A Depression, unspecified; E03.9 Hypothyroidism, unspecified; E05.00 Thyrotoxicosis with diffuse goiter without thyrotoxic crisis or storm
CPT/HCPCS: 99214

== ENCOUNTER 2023-09-06 12:30 | Outpatient (AMB) | payer BC, SELFPAY ==
--- NOTE | 2023-09-06 12:40 | A.OFFVIS_ITS ---
Intake VS Expanded 09/06/23 12:43 Height 5 ft 4 in Weight 232 lb BMI 39.8 Intake Visit Reasons: VIDEO - F/U SWL Allergies avocado Allergy (Severe, Verified 08/10/23 09:07) Itching sertraline Allergy (Unknown, Verified 08/10/23 09:07) Rash Medication List - Last Reconciled 09/06/23 by ANDRES Solares ascorbate calcium (vitamin C) 500 mg PO DAILY bupropion HCl (Wellbutrin XL) 150 mg PO QAM cholecalciferol (vitamin D3) mcg PO escitalopram oxalate (Lexapro) 20 mg PO DAILY 30 days fluticasone propionate 50 mcg/actuation 1 spray intranasal DAILY lactobacillus combo no.11 (Probiotic) 1 cap PO DAILY levothyroxine (Synthroid) 150 mcg PO DAILY 30 days loratadine (Claritin) 10 mg PO DAILY multivitamin 1 tab PO DAILY vitamin B complex 1 tab PO DAILY HPI HPI Comments History of Present Illness Details The patient is a pleasant 33 year old female who returns to the clinic for pre-operative surgical weight loss management.? They were last seen in the office on 08/15/2023, recorded weight at that time was 232.2 pounds, with a BMI of 39.9.? Today's weight is 232 pounds and BMI is 39.8.? There has been a weight loss of 10.4 pounds since initiating the surgical weight loss program on 07/14/2023 with a total body weight loss of 4.29 %. Pre op work up completed as follows: SWL classes:? , forgot but plans to start tonight/tmrw before RD appt appts: ?scheduled for 09/22? RD appts: scheduled for 09/07 Labs: low TSH, high B12, high chol/LDL, high CRP H. pylori: negative 07/29 CXR: no acute cardiopulmonary disease, 08/15 EKG: not done yet ABD U/S: 08/15, generalized increase in hepatic echotexture, consistent with fatty infiltration or hepatocellular disease UGI: scheduled 09/29 Sleep study scheduled for 09/28 The patient reports family illnesses, but she feels improved now. Had difficulty with exercise during the past few weeks, wasn't having as many shakes while sick with strep. Meal plan: Start with?Premier Protein shakes First shake at 7am-9am (2 scoops in 20 oz unsweetened almond milk) 7-9am Second shake, (2 scoops in 20 oz unsweetened almond milk) at Noon-2pm 1 Pure protein bar at 3-4pm. Dinner at 4 pm (9 forks of protein and 10 forks of salad/vegetables). Meal to include lean meat (beef, fish, pork, turkey, chicken), cooked vegetables or a salad with olive oil and/or fruits (berries, pears, apples, kiwi). Exercise: Patient has exercise bands, weights, a rowing machine and a [employer] fitness liudmila on her phone but due to fatigue related to her depression medications is not currently regularly exercising. She did obtain a treadmill that has incline option and calorie burning function in the importance of exercising with a goal of burning 2000 calories per week was reviewed. She notes that she is walking for 15-20 minute and burning approximately 90 kcal per session. Plans to resume exercise now that she has recovered from illness. [facility] Medical History Hypothyroidism Sleep apnea Graves disease Depression Anxiety Surgical History History of surgery History of wisdom tooth extraction History of sinus surgery Family History Father No family history of mental disorder Diabetes Mother No family history of mental disorder Breast cancer Daughter No problems noted. Daughter No problems noted. Son No problems noted. 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 Will come to have CXR done. Will start watching SWL classes. RTC 4 weeks when all testing complete. At that time can consider transfer to Dr. Santana assuming pt has continued with weight loss progress. Patient is obese and is not considered stable at this time. I spent a total of 30 minutes reviewing/updating records, examining the patient and counseling the patient on weight management as detailed above. Telehealth Telehealth Location of provider rendering services: practice address Location of patient: address on file Patient Identification confirmed using: Name, : Yes Telehealth method: video Patient verbally consented to treatment: Yes Patient verbally consented to billing insurance company: Yes Patient informed of any privacy concerns related to visit: Yes Coding Level of Care Code Tele Est Pt Level 4 (55721) Diagnoses Obesity E66.9 MANDIE (obstructive sleep apnea) G47.33 Elevated LDL cholesterol level E78.00
[2023-09-06 12:43] VITALS: BMI 39.8
== END 2023-09-06 13:11 | disposition home or self-care (01) ==
LOC: HO.HBS 12:59
PROVIDERS: PCP Nurse Practitioner Family; Visit Provider Physician Assistant Surgical
DX: E66.9 Obesity, unspecified (principal); Z68.39 Body mass index [BMI] 39.0-39.9, adult; G47.33 Obstructive sleep apnea (adult) (pediatric); E78.00 Pure hypercholesterolemia, unspecified
CPT/HCPCS: 99214

== ENCOUNTER → 2023-09-06 12:30 | Outpatient (BNVA) | payer BC, SELFPAY | PROVIDERS: PCP Nurse Practitioner Family; Visit Provider Physician Assistant Surgical ==

== ENCOUNTER 2023-09-07 14:04 | Outpatient (AMB) | payer BC, SELFPAY ==
--- NOTE | 2023-09-07 13:47 | MHC.AMNUTRGE ---
Intake Intake Visit Reasons: VIDEO Initial Nutrition SWL Allergies avocado Allergy (Severe, Verified 08/10/23 09:07) Itching sertraline Allergy (Unknown, Verified 08/10/23 09:07) Rash HPI Nutrition Presentation Reason for consult elevated BMI Diet Assmnt Details pt states she is following the plan from her surgeon. Is OK with it, but doesn't like sweets much. SWL classes: none yet Dietary counseling reduction Diagnosis Nutrition problem #1 overweight/obesity As related to (etiology) #1 excess energy intake and physical inactivity As evidenced by (sign/symptom) #1 high BMI Monitoring/Goals Nutrition problem monitoring total energy intake, level of knowledge/skill, total PRO intake, weight and oral fluids Outcome progress progressing Learning/Education Readiness to learn good Stages of change action Educational materials provided Yes Most Recent Diabetes Results: Cholesterol 240 mg/dL (<200) H 07/29/23 HDL Cholesterol 50 mg/dL (>40) 07/29/23 Triglycerides 132 mg/dL (<150) 07/29/23 Creatinine 0.76 mg/dL (0.5-1.4) 07/29/23 Blood Urea Nitrogen 10 mg/dL (9-16) 07/29/23 Sodium 139 mmol/L (135-145) 07/29/23 Potassium 3.9 mmol/L (3.3-5.1) 07/29/23 Chloride 108 mmol/L (96-108) 07/29/23 Carbon Dioxide 26 mmol/L (22-29) 07/29/23 Calcium 8.9 mg/dL (8.4-10.2) 07/29/23 AST 23 U/L (5-31) 07/29/23 ALT 21 U/L (0-31) 07/29/23 Total Protein 7.6 g/dL (6.5-8.0) 07/29/23 Albumin 4.1 g/dL (3.5-5.0) 07/29/23 [facility] Medical History Hypothyroidism Sleep apnea Graves disease Depression Anxiety Surgical History History of surgery History of wisdom tooth extraction History of sinus surgery Family History Father No family history of mental disorder Diabetes Mother No family history of mental disorder Breast cancer Daughter No problems noted. Daughter No problems noted. Son No problems noted. 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 Sexual orientation: Straight/Heterosexual Gender identity: Female Cognitive needs: No Hearing needs: No Vision needs: No Assessment & Plan Assessment & Plan (1) Obesity (BMI 30-39.9): Code(s): E66.9 - Obesity, unspecified Plan Nutrition follow up after competing online classes Telehealth Telehealth Location of provider rendering services: practice address Location of patient: address on file Patient Identification confirmed using: Name, : Yes Telehealth method: video Patient verbally consented to treatment: Yes Patient verbally consented to billing insurance company: Yes Patient informed of any privacy concerns related to visit: Yes Minutes spent on Phone/Video with Pt.: 20 Coding Level of Care Code Nutr Indiv Intake (90604) Diagnoses Obesity (BMI 30-39.9) E66.9 Time Spent (min) 20
== END 2023-09-07 14:12 | disposition home or self-care (01) ==
LOC: HO.HBS 14:04
PROVIDERS: PCP Nurse Practitioner Family; Visit Provider Dietitian, Registered
DX: E66.9 Obesity, unspecified (principal)

== ENCOUNTER → 2023-09-07 14:04 | Outpatient (BNVA) | payer BC, SELFPAY | PROVIDERS: PCP Nurse Practitioner Family; Visit Provider Dietitian, Registered | DX: E66.9 Obesity, unspecified (principal); Z71.3 Dietary counseling and surveillance | CPT/HCPCS: 97802 ==

== ENCOUNTER → 2023-09-09 10:04 | Outpatient (REF) | payer BC, SELFPAY ==
--- NOTE | 2023-09-09 10:21 | ECG_ITS ---
Test Reason : high bmi Blood Pressure : / mmHG Vent. Rate : 064 BPM Atrial Rate : 064 BPM P-R Int : 164 ms QRS Dur : 096 ms QT Int : 408 ms P-R-T Axes : 019 063 033 degrees QTc Int : 420 ms Normal sinus rhythm Normal ECG No previous ECGs available Referred By: Raymundo Blake Electronically Signed By:ROGER WALKER MD
[2023-09-09 11:47] LABS: TSH reflex Free T4 1.35 uIU/mL (0.32-4.0)
== END ==
LOC: HO.CARD 10:04
PROVIDERS: Absent Provider Surgery; PCP Nurse Practitioner Family; Visit Provider Nurse Practitioner Family
DX: E03.9 Hypothyroidism, unspecified (principal); Z68.41 Body mass index [BMI] 40.0-44.9, adult; E05.00 Thyrotoxicosis with diffuse goiter without thyrotoxic crisis or storm
CPT/HCPCS: 36415; 84443; 93005

== ENCOUNTER → 2023-09-09 10:21 | Outpatient (BNV) | payer BC, SELFPAY | PROVIDERS: Absent Provider Surgery; PCP Nurse Practitioner Family; Visit Provider Internal Medicine Cardiovascular Disease | DX: E66.9 Obesity, unspecified (principal); Z68.41 Body mass index [BMI] 40.0-44.9, adult | CPT/HCPCS: 93010 ==

== ENCOUNTER → 2023-09-28 15:57 | Outpatient (REF) | payer BC, SELFPAY | LOC: HO.SL 15:57 | PROVIDERS: PCP Nurse Practitioner Family; Visit Provider Nurse Practitioner Family | DX: G47.33 Obstructive sleep apnea (adult) (pediatric) (principal); R06.83 Snoring | CPT/HCPCS: 95806 ==

== ENCOUNTER → 2023-09-28 16:04 | Outpatient (BNV) | payer BC, SELFPAY | PROVIDERS: PCP Nurse Practitioner Family; Visit Provider Internal Medicine | DX: G47.33 Obstructive sleep apnea (adult) (pediatric) (principal) | CPT/HCPCS: 95806 ==

== ENCOUNTER 2023-09-29 08:40 | Outpatient (REF) | payer BC, SELFPAY ==
--- NOTE | ~2023-09-29 | FL_ITS ---
EXAMINATION: XR FLUOROSCOPY UPPER GI WITH AIR CLINICAL INFORMATION: Preop evaluation prior to bariatric surgery COMPARISON: None TECHNIQUE: Fluoroscopic air contrast upper GI examination was performed utilizing standard techniques with thin and thick barium and effervescent granules. Numerous spot images were obtained. FINDINGS: Dual and single contrast images of the esophagus demonstrate normal caliber, contour, and mucosal pattern. No evidence of stricture, mass, or ulcerations identified. Esophageal peristalsis was normal. No evidence of hiatus hernia identified. Gastroesophageal reflux is seen in the distal esophagus. Dual contrast and single contrast images of the stomach demonstrated normal contour and mucosal pattern without evidence of mass, ulceration, or other abnormality. Contrast freely passed into the gastric antrum and duodenal bulb without delay. Single and air-contrast images of the duodenal bulb demonstrate no abnormality. The duodenal sweep has a normal appearance, course, and mucosal fold appearance. The imaged proximal jejunum has a normal fold pattern and caliber. FLUOROSCOPY TIME: 2 minutes 30 seconds Number of Spot Images: 9 Number of Cine: 8 DOSE AREA PRODUCT: 2055 uGy-m2 (microgray-meter squared) FL/FL upper GI w air IMPRESSION: Mild gastroesophageal reflux, otherwise unremarkable upper GI series This procedure was performed by Reyes Marin PA-C, and supervised by Dr. Garnett
== END 2023-09-29 08:41 | disposition home or self-care (01) ==
LOC: HO.XRAY 08:40
PROVIDERS: PCP Nurse Practitioner Family; Visit Provider Surgery
DX: Z01.818 Encounter for other preprocedural examination (principal); E66.9 Obesity, unspecified; Z68.41 Body mass index [BMI] 40.0-44.9, adult; G47.33 Obstructive sleep apnea (adult) (pediatric)
CPT/HCPCS: 74246

== ENCOUNTER → 2023-09-29 08:41 | Outpatient (BNV) | payer BC, SELFPAY | PROVIDERS: PCP Nurse Practitioner Family; Visit Provider Radiology Diagnostic Radiology | DX: Z01.818 Encounter for other preprocedural examination (principal); E66.9 Obesity, unspecified; Z68.41 Body mass index [BMI] 40.0-44.9, adult | CPT/HCPCS: 74246 ==

== ENCOUNTER 2023-10-03 09:09 | Outpatient (AMB) | payer BC, SELFPAY ==
--- NOTE | 2023-10-03 08:38 | MHC.WMTHER ---
Intake Intake Visit Reasons: VIDEO BH Intake Allergies avocado Allergy (Severe, Verified 08/10/23 09:07) Itching sertraline Allergy (Unknown, Verified 08/10/23 09:07) Rash PFSH Medical History Hypothyroidism Sleep apnea Graves disease Depression Anxiety Surgical History History of surgery History of wisdom tooth extraction History of sinus surgery Family History Father No family history of mental disorder Diabetes Mother No family history of mental disorder Breast cancer Daughter No problems noted. Daughter No problems noted. Son No problems noted. 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 Pt reported that she struggled during covid with isolation and reached out to her employer [employer]. She also reported that she had started to drink more alcohol during covid and gained sig. weight. Carrie stated that she has cut back on drinking since 2021. Pt is looking to have weight loss surgery to help improve her health and quality of life. Presenting Concerns Referral Source provider Reason for referral weight loss surgery evaluation Precipitating Event obesity Living Situation Current Living Situation Own At risk of losing current housing? Yes Satisfied with current living situation? No Comments Pt reported that she lives with her and four kids 16, 10, 7, and 5 years old. Food/Weight/Diet Expectations of change weight loss and maintenance History/Relationship with food Pt stated that she would boredom eat, skip breakfast, snack for lunch and then overeating at night. Family does home based meals,. spaghetti, tater tot casserole, crock pot chicken, meatloaf, taco, taco pasta, History/Relationship with weight Pt stated that she has always been over weight and stated that when she was diagnosed at age 14 with Graves and then lost sig. weight but then with medications she started to gain weight. She also reported that she gained significant weight during covid. History/Relationship with dieting patient stated that she has tried WW (gained weight), [facility] (did well until covid, lost 50lbs), Nutrisystem, Phentermine and Wellbutrin from her doctor for weight loss (minimal weight loss). Binge Eating Do you frequently eat large amounts of food in short periods of time, not feeling physically hungry? No Do you feel out of control when you eat a large amount of food in a short period of time? No Do you eat large amounts of food rapidly and typically alone? Yes Night Eating Do you wake up at least once during the night to eat? No If you wake up in the night, do you find that it is necessary to eat something in order to fall back asleep? No Do you have little or no appetite in the morning and feel very hungry in the evening, often overeating between dinner and when you go to bed? Yes Social History Family history and relationship Pt reported that she was born and raised in [place] and moved here last year with her and kids. Her 's side of the family live in the area. She has three sisters and two brothers. Pt was raised with her younger sister who is her only full sibling and one older sister by 14 years who her mom had from previous marriage. Her father also had other relationships and children. Parental/Familial enterprise infrastructure architect obligations 4 kids Developmental history and status no issues reported. Social support , older sisters, mom when in good health, nieces Community support had a close knit Nondenominational/Spirituality [employer] Cultural/Ethnic information Legal Involvement and History Current or historical involvement with the legal system? none Education Highest grade completed high school diploma Preferred learning style Auditory, Verbal, Written, Learn by doing and Visual Currently enrolled in educational program? No Interested in further educational program? 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 Employment Employment Status [employer] Wants help to find employment? No Meaningful activities hx of working out, Financial Situation Describe current financial situation Comfortable Financial assistance? None Service Service? No Mental Health and Addiction Treatment Current/Past substance abuse? Yes Current/Past addictive behavior concerns? Yes Medical and Physical Health Summary Physical exam in the last year? Yes Pain Screening Current pain? Yes Medications Is the patient compliant with medications? Yes Does the patient have Lemons Guardian in place? Not applicable Does the patient use complimentary health approaches? No Trauma/Abuse History History of trauma? No Assessment & Plan Assessment & Plan (1) Anxiety disorder, unspecified: Code(s): F41.9 - Anxiety disorder, unspecified Qualifiers: Anxiety disorder type: other mixed anxiety disorder Qualified Code(s): F41.3 - Other mixed anxiety disorders Plan Patient is a 33 year old female who presents for evaluation for weight loss surgery. No scales were scanned into her chart or visible paperwork. She has a history of anxiety per her report and some struggles emotionally during the pandemic as well as weight gain. Pt is stable, reports doing well, and will reach out for help as needed. She is cleared for surgery. Telehealth Telehealth Location of provider rendering services: practice address Location of patient: address on file Patient Identification confirmed using: Name, : Yes Telehealth method: video Patient verbally consented to treatment: Yes Patient verbally consented to billing insurance company: Yes Patient informed of any privacy concerns related to visit: Yes Minutes spent on Phone/Video with Pt.: 50 Coding Level of Care Code Tele Psy Diag Kamlesh (43174) Diagnoses Other mixed anxiety disorders F41.3 Anxiety disorder type: other mixed anxiety disorder Time Spent (min) 55
== END 2023-10-03 15:01 | disposition home or self-care (01) ==
LOC: HO.HBST 09:09
PROVIDERS: PCP Nurse Practitioner Family; Visit Provider Counselor Mental Health
DX: F41.3 Other mixed anxiety disorders (principal)
CPT/HCPCS: 90791

== ENCOUNTER → 2023-10-03 09:09 | Outpatient (BNVA) | payer BC, SELFPAY | PROVIDERS: PCP Nurse Practitioner Family; Visit Provider Counselor Mental Health ==

== ENCOUNTER 2023-10-06 12:52 | Outpatient (AMB) | payer BC, SELFPAY ==
--- NOTE | 2023-10-06 12:32 | MHC.OFFVISWM ---
Intake VS Expanded 10/06/23 12:40 Height 5 ft 4 in Weight 228 lb BMI 39.1 Intake Visit Reasons: TELEPHONE VISIT PO GBP 09/19/17 Allergies avocado Allergy (Severe, Verified 08/10/23 09:07) Itching sertraline Allergy (Unknown, Verified 08/10/23 09:07) Rash Medication List - Last Reconciled 10/06/23 by ANDRES Solares ascorbate calcium (vitamin C) 500 mg PO DAILY bupropion HCl (Wellbutrin XL) 150 mg PO QAM cholecalciferol (vitamin D3) mcg PO escitalopram oxalate (Lexapro) 20 mg PO DAILY 30 days fluticasone propionate 50 mcg/actuation 1 spray intranasal DAILY lactobacillus combo no.11 (Probiotic) 1 cap PO DAILY levothyroxine (Synthroid) 150 mcg PO DAILY 30 days loratadine (Claritin) 10 mg PO DAILY multivitamin 1 tab PO DAILY vitamin B complex 1 tab PO DAILY HPI HPI Comments History of Present Illness Details The patient is a pleasant 33 year old female who returns to the clinic for pre-operative surgical weight loss management.? They were last seen in the office on , recorded weight at that time was 232 pounds, with a BMI of 39.8.? Today's weight is 228 pounds and BMI is 39.1.? There has been a weight loss of pounds since initiating the surgical weight loss program on with a total body weight loss of 5.94%. Pre op work up completed as follows: SWL classes:? 04/26 appts: ?cleared 10/03 appts: 09/07, needs additional f/u after completing classes Labs: low TSH, high B12, high chol/LDL, high CRP H. pylori: negative 07/29 CXR: no acute cardiopulmonary disease, 08/15 EK/22, normal EKG ABD U/S: 08/15, generalized increase in hepatic echotexture, consistent with fatty infiltration or hepatocellular disease UGI: 09/29, Mild gastroesophageal reflux, otherwise unremarkable upper GI series Sleep study done 09/28, mild MANDIE Meal plan: Start with?[employer] Protein shakes First shake at 7am-9am (2 scoops in 20 oz unsweetened almond milk) 7-9am Second shake, (2 scoops in 20 oz unsweetened almond milk) at Noon-2pm 1 Pure protein bar at 3-4pm. Dinner at 6pm (9 forks of protein and 10 forks of salad/vegetables). Meal to include lean meat (beef, fish, pork, turkey, chicken), cooked vegetables or a salad with olive oil and/or fruits (berries, pears, apples, kiwi). Exercise: Patient has exercise bands, weights, a rowing machine and a [employer] fitness iludmila on her phone but due to fatigue related to her depression medications is not currently regularly exercising. She did obtain a treadmill that has incline option. Now does treadmill 20 minutes, workout video, and some weight training- 4x/week. Calorie burn according to [employer]- 150-300. [facility] Medical History Hypothyroidism Sleep apnea Graves disease Depression Anxiety Surgical History History of surgery History of wisdom tooth extraction History of sinus surgery Family History Father No family history of mental disorder Diabetes Mother No family history of mental disorder Breast cancer Daughter No problems noted. Daughter No problems noted. Son No problems noted. 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 Discussed 2000 calorie goal burned per week and recommended pt increase exercise to meet this goal. Answered pt's questions. Will schedule follow up with RD for clearance and follow up again with me in 3-4 weeks. Patient is obese and is not considered stable at this time. I spent a total of 30 minutes reviewing/updating records, examining the patient and counseling the patient on weight management as detailed above. Telehealth Telehealth Location of provider rendering services: practice address Location of patient: address on file Patient Identification confirmed using: Name, : Yes Telehealth method: voice only Patient verbally consented to treatment: Yes Patient verbally consented to billing insurance company: Yes Patient informed of any privacy concerns related to visit: Yes Minutes spent on Phone/Video with Pt.: 18 Coding Level of Care Code Tele Est Pt Level 4 (16845) Diagnoses Obesity E66.9 High cholesterol E78.00 Hypothyroidism E03.9 MANDIE (obstructive sleep apnea) G47.33
[2023-10-06 12:40] VITALS: BMI 39.1
== END 2023-10-06 12:57 | disposition home or self-care (01) ==
LOC: HO.HBS 12:52
PROVIDERS: PCP Nurse Practitioner Family; Visit Provider Physician Assistant Surgical
DX: E66.9 Obesity, unspecified (principal); Z68.39 Body mass index [BMI] 39.0-39.9, adult; Z98.84 Bariatric surgery status; E78.00 Pure hypercholesterolemia, unspecified; E03.9 Hypothyroidism, unspecified; G47.33 Obstructive sleep apnea (adult) (pediatric)
CPT/HCPCS: 99442

== ENCOUNTER → 2023-10-06 12:52 | Outpatient (BNVA) | payer BC, SELFPAY | PROVIDERS: PCP Nurse Practitioner Family; Visit Provider Physician Assistant Surgical ==

== ENCOUNTER 2023-10-11 15:16 | Outpatient (AMB) | payer BC, SELFPAY ==
[2023-10-11 15:27] VITALS: BP 122/74; PULSE 81; RESP 13; TEMP 36.4; O2SAT 99; BMI 40.3
--- NOTE | 2023-10-11 15:27 | MHC.PC.OV ---
Vital Signs 10/11/23 15:27 Height 5 ft 4 in Weight 235 lb BMI 40.3 BP 122/74 Blood Pressure Location Rt brachial Position Sitting Respiration 13 Pulse 81 Pulse Source Pulse Oximeter Temp 97.6 F Temp Source Temporal Artery Scan Pulse Oximetry (%) 99 Oxygen Delivery Method Room Air Intake Visit Reasons: ? of allergic reaction Intake Note: Patient states she went out to dinner last noight and was good up until half way through where she got very itchy. she went home and took benadryl and it went away but came back this morning. Patient states shes been itching again today followed by it feeling like she has something stuck in throat. 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: No Accompanied by: Self / Same As Patient Allergies avocado Allergy (Severe, Verified 10/11/23 15:45) Itching sertraline Allergy (Unknown, Verified 10/11/23 15:45) Rash Medication List - Last Reconciled 10/11/23 by Migue Sanderson CNP ascorbate calcium (vitamin C) 500 mg PO DAILY bupropion HCl 300 mg PO DAILY cholecalciferol (vitamin D3) mcg PO fluticasone propionate 50 mcg/actuation 1 spray intranasal DAILY lactobacillus combo no.11 (Probiotic) 1 cap PO DAILY levothyroxine (Synthroid) 150 mcg PO DAILY 30 days loratadine (Claritin) 10 mg PO DAILY multivitamin 1 tab PO DAILY vitamin B complex 1 tab PO DAILY Tobacco use date assessed: 10/11/23 Dental Screening Dental Screen Date: 10/11/23 Did you have a dental visit in the last 12 months?: Yes Did you have a dental problem in the last 6 months where you did not have access to dental care?: No Was dental information given to patient?: Patient has dentist HPI HPI Comments History of Present Illness Details 33-year-old female presents with complaints of possible allergic reaction to food She notes she had dinner at the restaurant last night. She got very itchy fpc through the dinner. She ate catfish which she has never had before. She has never had search reaction to other fish or seafood. She took some Benadryl before going to bed last night with complete resolution of the itching. She notes that the itching started again upon waking up this morning. She feels as though something is stuck in her throat intermittently. The itching is on her scalp, shoulders, and hands. No rash. She denies dyspnea, chest pain, sore throat, pain with swallowing, or swelling [facility] Medical History Hypothyroidism Sleep apnea Graves disease Depression Anxiety Surgical History History of surgery History of wisdom tooth extraction History of sinus surgery Family History Father No family history of mental disorder Diabetes Mother No family history of mental disorder Breast cancer Daughter No problems noted. Daughter No problems noted. Son No problems noted. 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 Tj Sr, Gabbi Andrea, Rafa Ellis and colleagues, with an educational chen from [employer]. Review of Systems Const Details: Const Denies chills, Denies fatigue, Denies fever(s), Denies headache(s) and Denies weakness ENT Denies dizziness and Denies headache(s) Card Denies chest pain, Denies lightheadedness, Denies dyspnea and Denies other (Palpitations) Resp Denies cough, Denies dyspnea, Denies wheezing and Denies other ( shortness of breath) GI Denies abdominal pain, Denies melena, Denies hematochezia, Denies change in bowel habits, Denies dyspepsia and Denies nausea Denies hematuria and Denies dysuria Musc Denies abnormal gait, Denies myalgias, Denies arthralgias, Denies numbness and Denies tingling Skin/Breast Denies rash, Denies unusual bruising and Denies wounds Neuro Denies abnormal gait, Denies dizziness, Denies headache(s), Denies memory loss, Denies numbness, Denies Sensory deficit (Neuro), Denies tingling and Denies weakness Psych Denies anxiety, Denies depression, Denies memory loss Endo Denies cold intolerance, Denies fatigue, Denies heat intolerance, Denies polydipsia and Denies polyuria Aller/Immun Denies wheezing Physical exam (Primary Care) Vital Signs: Last Vital Signs Temp 97.6 F 10/11/23 15:27 Pulse 81 10/11/23 15:27 Resp 13 10/11/23 15:27 BP 122/74 10/11/23 15:27 Pulse Ox 99 10/11/23 15:27 Oxygen Delivery Method Room Air 10/11/23 15:27 BMI result Body Mass Index 40.3 Tobacco/Smoking Status: Tobacco use Status Tobacco use date assessed 10/11/23 10/11/23 15:38 Patient Tobacco Use Status Former Tobacco user 10/11/23 15:38 e-Cigarette/Vaping Use Never Used 10/11/23 15:38 Const Other: General: no acute distress and well developed Nutritional Appearance: well nourished Orientation/consciousness: patient oriented x3 HENMT Head: Yes normocephalic and Yes atraumatic Eyes General: appearance normal, both eyes and all related structures Pupils: Equal, round and reactive pupils present EOM: EOMs intact bilaterally Resp Effort & Inspection: normal respiratory effort Auscultation: clear to auscultation bilaterally Cardio Rate: regular rate Rhythm: regular rhythm Heart sounds: S1 normal heart sound present, S2 normal heart sound present, no gallops, no murmurs and no rubs GI Palpation (GI): No Abdominal aortic bruit present, Soft to palpation, nontender, No hepatosplenomegaly present and No Rebound tenderness present Auscultation: normal bowel sounds General: Yes no CVA tenderness Back/Spine/Pelvis Back: no CVA tenderness Cervical Spine: cervical ROM normal and No Cervical spine tenderness Thoracic/Lumbar Spine: thoraco-lumbar ROM normal, No pain with thoraco-lumbar ROM, No thoracic spinal tenderness and No lumbar spinal tenderness Extrem General: Yes normal to inspection, No edema and No calf tenderness Skin General: warm and dry. Normal skin color. Normal skin turgor Lesions: no lesions Rashes: no rashes Trauma: no lacerations or abrasions Wounds: no wounds Nails: normal Neuro General: patient oriented x3, gait normal and no focal neuro deficit Cranial nerves: Yes Equal, round and reactive pupils present Cognition (Neuro): normal cognition Gait exam (Neuro): Normal gait present Sensory Exam: No Sensory deficit (Neuro) Psych Appearance: grossly normal Affect: normal affect Attitude: cooperative Thought process: Normal thought process present Assessment and Plan Assessment & Plan (1) Food allergy: Code(s): Z91.018 - Allergy to other foods Plan: Reports itching to her scalp, shoulders, and hands; started after having dinner last night Likely catfish allergy Advised to avoid eating catfish May take Benadryl 50 mg 2-3 times daily as needed until symptoms resolve Follow-up with worsening symptoms or rash. Go to the ED with shortness of breath, throat swelling or pain with swallowing Schedule an extended physical exam Verbalized understanding and agreed with treatment plan Coding Level of Care Code Est Pt Level 3 (49589) Diagnoses Food allergy Z91.018
== END 2023-10-11 16:05 | disposition home or self-care (01) ==
PROVIDERS: PCP Nurse Practitioner Family; Visit Provider Nurse Practitioner Family
DX: Z91.018 Allergy to other foods (principal)
CPT/HCPCS: 99213

== ENCOUNTER 2023-10-18 14:09 | Outpatient (AMB) | payer BC, SELFPAY ==
--- NOTE | 2023-10-18 14:03 | MHC.AMNUTRGE ---
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 also wants more recipes for easy to prepare dinners Exercise: wakes up at 5am to workout SWL classes: completed Dietary counseling reduction Diagnosis Nutrition problem #1 overweight/obesity As related to (etiology) #1 excess energy intake and physical inactivity As evidenced by (sign/symptom) #1 high BMI Monitoring/Goals Nutrition problem monitoring total energy intake, level of knowledge/skill, total PRO intake, weight and oral fluids Outcome progress progressing Learning/Education Readiness to learn good Stages of change action Educational materials provided Yes Most Recent Diabetes Results: No Data to Display [facility] Medical History Hypothyroidism Sleep apnea Graves disease Depression Anxiety Surgical History History of surgery History of wisdom tooth extraction History of sinus surgery Family History Father No family history of mental disorder Diabetes Mother No family history of mental disorder Breast cancer Daughter No problems noted. Daughter No problems noted. Son No problems noted. 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 Educational requirements have been completed. Reviewed vitamin supplementation and commitment to protein shake for several months post surgery. Encouraged communication with office as needed. provided lots of easy meal ideas. Telehealth Telehealth Location of provider rendering services: practice address Location of patient: address on file Patient Identification confirmed using: Name, : Yes Telehealth method: voice only Patient verbally consented to treatment: Yes Patient verbally consented to billing insurance company: Yes Patient informed of any privacy concerns related to visit: Yes Minutes spent on Phone/Video with Pt.: 25 Coding Level of Care Code Nutr Indiv Subseq (38176) Diagnoses BMI 40.0-44.9, adult Z68.41 Time Spent (min) 25
== END 2023-10-18 14:26 | disposition home or self-care (01) ==
LOC: HO.HBS 14:09
PROVIDERS: PCP Nurse Practitioner Family; Visit Provider Dietitian, Registered
DX: Z68.41 Body mass index [BMI] 40.0-44.9, adult (principal)

== ENCOUNTER → 2023-10-18 14:09 | Outpatient (BNVA) | payer BC, SELFPAY | PROVIDERS: PCP Nurse Practitioner Family; Visit Provider Dietitian, Registered | DX: E66.9 Obesity, unspecified (principal); Z68.41 Body mass index [BMI] 40.0-44.9, adult; Z71.3 Dietary counseling and surveillance | CPT/HCPCS: 97803 ==

== ENCOUNTER 2023-11-10 13:18 | Outpatient (AMB) | payer BC, SELFPAY ==
--- NOTE | 2023-11-10 13:04 | MHC.OFFVISWM ---
Intake VS Expanded 11/10/23 13:06 Height 5 ft 4 in Weight 226 lb 7 oz BMI 38.9 Intake Visit Reasons: (TV) F/U SWL Allergies avocado Allergy (Severe, Verified 10/11/23 15:45) Itching sertraline Allergy (Unknown, Verified 10/11/23 15:45) Rash Medication List - Last Reconciled 11/10/23 by ANDRES Solares ascorbate calcium (vitamin C) 500 mg PO DAILY bupropion HCl 300 mg PO DAILY cholecalciferol (vitamin D3) mcg PO fluticasone propionate 50 mcg/actuation 1 spray intranasal DAILY lactobacillus combo no.11 (Probiotic) 1 cap PO DAILY levothyroxine (Synthroid) 150 mcg PO DAILY 30 days loratadine (Claritin) 10 mg PO DAILY multivitamin 1 tab PO DAILY vitamin B complex 1 tab PO DAILY HPI HPI Comments History of Present Illness Details The patient is a pleasant 33 year old female who returns to the clinic for pre-operative surgical weight loss management.? Starting weight 242.4lbs. They were last seen in the office on 10/18/2023, recorded weight at that time was 228 pounds.? Today's weight is 226.7 pounds and BMI is 38.9.? There has been a weight loss of 15.3 pounds since initiating the surgical weight loss program with a total body weight loss of 6.31%. Pre op work up completed as follows: SWL classes:? 04/26 appts: ?cleared 10/03 appts: cleared 10/18 Labs: low TSH, high B12, high chol/LDL, high CRP H. pylori: negative 07/29 CXR: no acute cardiopulmonary disease, 08/15 EK/22, normal EKG ABD U/S: 08/15, generalized increase in hepatic echotexture, consistent with fatty infiltration or hepatocellular disease UGI: 09/29, Mild gastroesophageal reflux, otherwise unremarkable upper GI series Sleep study done 09/28, mild MANDIE Meal plan: Start with?Premier Protein shakes First shake at 7am-9am (2 scoops in water) 7-9am Second shake, (2 scoops in water) at Noon-2pm 1 Pure protein bar or ONE bar at 3-4pm. Dinner at 6pm (9 forks of protein and 10 forks of salad/vegetables). Meal to include lean meat (beef, fish, pork, turkey, chicken), cooked vegetables or a salad with olive oil and/or fruits (berries, pears, apples, kiwi). Exercise: Patient has exercise bands, weights, a rowing machine and a [employer] fitness liudmila on her phone, did obtain a treadmill that has incline option. Now does treadmill 45 minutes, workout video, and some weight training- 4x/week. Calorie burn according to FitBit- 2242 last week according to [employer]. [facility] Medical History Hypothyroidism Sleep apnea Graves disease Depression Anxiety Surgical History History of surgery History of wisdom tooth extraction History of sinus surgery Family History Father No family history of mental disorder Diabetes Mother No family history of mental disorder Breast cancer Daughter No problems noted. Daughter No problems noted. Son No problems noted. 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 Will adjust meal plan to the following: First shake at 7am-9am (ONE scoop in 8oz water) 7-9am Second shake, (ONE scoop in 8oz water) at 12-2pm 1 Pure protein bar or ONE bar at 3-5pm Dinner at 6pm (9 forks of protein and 10 forks of salad/vegetables) Congratulated pt on increasing exercise and meeting calorie burn goal weekly. Will set up initial visit with Dr. Santana as pt has completed all preop requirements. Patient is obese and is not considered stable at this time. I spent a total of 30 minutes reviewing/updating records, examining the patient and counseling the patient on weight management as detailed above. Telehealth Telehealth Location of provider rendering services: practice address Location of patient: address on file Patient Identification confirmed using: Name, : Yes Telehealth method: voice only Patient verbally consented to treatment: Yes Patient verbally consented to billing insurance company: Yes Patient informed of any privacy concerns related to visit: Yes Minutes spent on Phone/Video with Pt.: 12 Coding Level of Care Code Tele Est Pt Level 4 (31305) Diagnoses Obesity E66.9 Hypothyroidism E03.9 High cholesterol E78.00 Elevated fasting glucose R73.01 MANDIE (obstructive sleep apnea) G47.33
[2023-11-10 13:06] VITALS: BMI 38.9
== END 2023-11-10 13:20 | disposition home or self-care (01) ==
LOC: HO.HBS 13:19
PROVIDERS: PCP Nurse Practitioner Family; Visit Provider Physician Assistant Surgical
DX: E66.9 Obesity, unspecified (principal); Z68.27 Body mass index [BMI] 27.0-27.9, adult; E03.9 Hypothyroidism, unspecified; G47.33 Obstructive sleep apnea (adult) (pediatric); E78.00 Pure hypercholesterolemia, unspecified; R73.01 Impaired fasting glucose
CPT/HCPCS: 99443

== ENCOUNTER → 2023-11-10 13:18 | Outpatient (BNVA) | payer BC, SELFPAY | PROVIDERS: PCP Nurse Practitioner Family; Visit Provider Physician Assistant Surgical ==

== ENCOUNTER 2023-11-29 08:23 | Outpatient (AMB) | payer BC, SELFPAY ==
[2023-11-29 08:26] VITALS: BP 116/74; PULSE 77; RESP 13; TEMP 36.4; O2SAT 99; BMI 39.0
--- NOTE | 2023-11-29 08:26 | A.OFFPC_ITS ---
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 Required: No Accompanied by: Self / Same As Patient Allergies avocado Allergy (Severe, Verified 11/29/23 08:38) Itching sertraline Allergy (Unknown, Verified 11/29/23 08:38) Rash Medication List - Last Reconciled 11/29/23 by Migue Sanderson CNP ascorbate calcium (vitamin C) 500 mg PO DAILY bupropion HCl 300 mg PO DAILY cholecalciferol (vitamin D3) mcg PO fluticasone propionate 50 mcg/actuation 1 spray intranasal DAILY guanfacine ER 2 mg PO DAILY lactobacillus combo no.11 (Probiotic) 1 cap PO DAILY levothyroxine (Synthroid) 150 mcg PO DAILY 30 days loratadine (Claritin) 10 mg PO DAILY multivitamin 1 tab PO DAILY vitamin B complex 1 tab PO DAILY Tobacco use date assessed: 10/11/23 Dental Screening Dental Screen Date: 11/29/23 Did you have a dental visit in the last 12 months?: Yes Did you have a dental problem in the last 6 months where you did not have access to dental care?: No Was dental information given to patient?: Patient has dentist HPI HPI Comments History of Present Illness Details 33-year-old female presents for an exten ded physical exam She has history of sleep apnea, hypercholesterolemia, obesity, hypothyroidism, anxiety, and depression She admits to taking her medications as prescribed without adverse reactions She has been seeing a PMHNP once every 2-3 weeks. She reports improved anxiety and depression symptoms She offers no complaints and denies acute symptoms at this time She is currently followed by [facility] weight management team. She is expected to have gastric sleeve surgery in the near future She states that her last pap smear test was in 2022: normal She has not been vaccinated for the flu vaccine this season. She states, I don't do the flu vaccine. Nonsmoker, drinks alcohol occasionally, no recreational drug use PFSH Medical History Hypothyroidism Sleep apnea Graves disease Depression Anxiety Surgical History History of surgery History of wisdom tooth extraction History of sinus surgery Family History Father No family history of mental disorder Diabetes Mother No family history of mental disorder Breast cancer Daughter No problems noted. Daughter No problems noted. Son No problems noted. 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 1. Little interest or pleasure in doing things: several days 2. Feeling down, depressed, or hopeless: several days 3. Trouble falling or staying asleep, or sleeping too much: not at all 4. Feeling tired or having little energy: nearly every day 5. Poor appetite or overeating: several days 6. Feeling bad about yourself - or that you are a failure or have let yourself or your family down: several days 7. Trouble concentrating on things, such as reading the newspaper or watching television: several days 8. Moving or speaking so slowly that other people could have noticed. Or the opposite - being so fidgety or restless that you have been moving around a lot more than usual: not at all 9. Thoughts that you would be better off or of hurting yourself in some way: not at all Total score: 8 Depression Screening Interpretation: Positive Depression Screening Follow-up: Existing condition and In treatment Depression Screening Done: Yes 75517 - PHQ-9 Billing: Yes Source: Developed by Drs. Tj Sr, Gabbi Andrea, Rafa Ellis and colleagues, with an educational chen from [employer]. Thrive Questionnaire Date Thrive assessed: 11/29/23 I am a: Patient What is your living situation today?: I have a steady place to live Within the past 12 months, did the food you bought not last and you didn't have the money to get more?: Never true Within the past 12 months, did you worry whether your food would run out before you got money to buy more?: Never true Do you have trouble paying for medicines?: No Do you have trouble getting transportation to medical appointments?: No Do you have trouble paying your heating and electricity bill?: No Do you have trouble taking care of your child, family member or friend?: No Do you have trouble with day-to-day activities such as bathing, preparing meals, shopping, managing finances, etc.?: No Are you currently unemployed and looking for a job?: No Are you interested in more education?: No Please select the resources that you would like help with: None Currently or been in a relationship where the following occur: no concerns reported THRIVE Score: 0 AUDIT C Alcohol Use Questionnaire (AUDIT-C) 1. How often do you have a drink containing alcohol?: Monthly or less 2. How many drinks containing alcohol do you have on a typical day when you are drinking?: 1 or 2 3. How often do you have six or more drinks on one occasion?: Never Total Score: 1 FEROZ-7 AMB Questionnaire FEROZ-7 Date FEROZ - 7 assessed: 11/29/23 Feeling nervous, anxious, or on edge: 0 = Not at all Not being able to stop or control worryin = Not at all Worrying too much about different things: 1 = Several days Trouble relaxin = Nearly every day Being so restless that it is hard to sit still: 0 = Not at all Becoming easily annoyed or irritable: 1 = Several days Feeling afraid as if something awful might happen: 0 = Not at all Total FEROZ-7 score (0-4 normal; 5-9 mild; 10-14 moderate; 15-21 severe): 5 Source: Developed by Drs. Tj Sr, Gabbi Andrea, Rafa Ellis and colleagues, with an educational chen from [employer]. FEROZ-7 Assessment Billing FEROZ-7 Assessment Tool: FEROZ-7 Assessment 44655 Review of Systems Const Details: Denies chills, Denies fatigue, Denies fever(s), Denies headache(s) and Denies weakness HEENT Denies change in vision, Denies dizziness, Denies headache(s), Denies hearing loss, Denies nasal congestion, Denies sinus pain, Denies sinus pressure and Denies sore throat Card Denies chest pain, Denies lightheadedness, Denies dyspnea and Denies other (palpitations) Resp Denies cough, Denies dyspnea and Denies wheezing GI Denies abdominal pain, Denies melena, Denies hematochezia, Denies change in bowel habits, Denies dyspepsia and Denies nausea Denies hematuria and Denies dysuria Musc Denies abnormal gait, Denies myalgias, Denies arthralgias, Denies numbness and Denies tingling Skin/Breast Denies rash, Denies unusual bruising and Denies wounds Neuro Denies abnormal gait, Denies dizziness, Denies headache(s), Denies memory loss, Denies numbness, Denies Sensory deficit (Neuro), Denies tingling and Denies weakness Psych Denies anxiety, Denies depression and Denies memory loss Endo Denies cold intolerance, Denies fatigue, Denies heat intolerance, Denies polydipsia and Denies polyuria Aly/Lymph Denies easy bleeding and Denies easy bruising Aller/Immun Denies wheezing Physical exam (Primary Care) Vital Signs: Last Vital Signs Temp 97.6 F 11/29/23 08:26 Pulse 77 11/29/23 08:26 Resp 13 11/29/23 08:26 BP 116/74 11/29/23 08:26 Pulse Ox 99 11/29/23 08:26 Oxygen Delivery Method Room Air 11/29/23 08:26 BMI result Body Mass Index 39.0 Tobacco/Smoking Status: Tobacco use Status Tobacco use date assessed 10/11/23 10/11/23 15:38 Patient Tobacco Use Status Former Tobacco user 10/11/23 15:38 e-Cigarette/Vaping Use Never Used 10/11/23 15:38 Depression Screening Interpretation: Positive Depression Screening Follow-up: Existing condition and In treatment Currently or been in a relationship where the following occur: no concerns reported Const Other: General: no acute distress, well developed, alert and awake Nutritional Appearance: well nourished Orientation/consciousness: patient oriented x3 HENMT Head: Yes normocephalic and Yes atraumatic Ears: hearing grossly normal bilaterally and TM's normal bilaterally General nose exam: Normal external nose present and Normal nares present Mouth: Normal oral and palatal mucosa present and moist mucous membranes Teeth and gingiva: dentition normal Throat: Yes oropharynx normal Eyes Pupils: Equal, round and reactive pupils present and Pupil accommodation reflex normal EOM: EOMs intact bilaterally Neck Neck: Yes normal visual inspection, Yes no lymphadenopathy and Yes trachea midline Thyroid: Thyroid normal Carotids: no bruits Lymphatic: no lymphadenopathy noted Chest Chest palpation & inspection: normal inspection of the chest Resp Effort & Inspection: normal respiratory effort Auscultation: clear to auscultation bilaterally Cardio Rate: regular rate Rhythm: regular rhythm Heart sounds: S1 normal heart sound present, S2 normal heart sound present, no gallops, no murmurs and no rubs Bruits: no abdominal aortic bruits and no carotid bruits GI Palpation (GI): No Abdominal aortic bruit present, Soft to palpation, nontender, No hepatosplenomegaly present and No Rebound tenderness present Auscultation: normal bowel sounds General: Yes no CVA tenderness Back/Spine/Pelvis Back: no CVA tenderness Cervical Spine: cervical ROM normal and No Cervical spine tenderness Thoracic/Lumbar Spine: thoraco-lumbar ROM normal, No pain with thoraco-lumbar ROM, No thoracic spinal tenderness and No lumbar spinal tenderness Skin General: warm and dry. Normal skin color. Normal skin turgor Lesions: no lesions Rashes: no rashes Trauma: no lacerations or abrasions Wounds: no wounds Nails: normal Neuro General: patient oriented x3, gait normal and CN's II-XI intact bilaterally Cranial nerves: Yes Equal, round and reactive pupils present Cognition (Neuro): normal cognition Gait exam (Neuro): Normal gait present Motor exam (neuro): 5/5 motor strength present throughout Sensory Exam: No Sensory deficit (Neuro) Deep tendon reflexes (DTR's): Right patellar reflex intensity grade: 2+ and Left patellar reflex intensity grade: 2+ Extrem General: Yes normal to inspection, No edema and No calf tenderness Psych Appearance: grossly normal Affect: normal affect Attitude: cooperative Thought process: Normal thought process present Assessment and Plan Assessment & Plan (1) Normal physical exam: Code(s): Z00.00 - Encounter for general adult medical examination without abnormal findings Plan: No significant physical restrictions or limitations noted Continue current treatment regimen Healthy diet and routine exercise encouraged Follow-up with psych provider and weight management specialists as planned Return in 3 months for hypercholesterolemia and hypothyroidism follow-up or sooner with symptoms or concerns Verbalized understanding and agreed with treatment plan (2) Hypercholesterolemia: Code(s): E78.00 - Pure hypercholesterolemia, unspecified Plan: Recent cholesterol and LDL levels are elevated, 240 and 164 respectively Advised to limit foods high in saturated fat and avoid foods high in trans fat Routine exercise encouraged Will recheck lipid panel in 3 months Advised to fast for 10-12 hours, may drink water only, and get blood work done before her next visit Follow-up in 3 months Verbalized understanding and agreed with treatment plan (3) Anxiety and depression: Code(s): F41.9 - Anxiety disorder, unspecified; F32.A - Depression, unspecified Plan: Reports controlled anxiety and depression symptoms on current treatment regimen PHQ-9 and FEROZ-7 scores revealed mild depression and anxiety Continue current treatment Continue follow-up with psych provider as planned Return with symptoms or concerns Verbalized understanding and agreed with treatment plan (4) Obesity: Code(s): E66.9 - Obesity, unspecified Plan: She currently weighs 227 lb, BMI is 39.0 [address] is followed by [facility] weight management clinic Encouraged to continue treatment regimen Follow-up as needed Verbalized understanding and agreed with treatment plan (5) Hypothyroidism: Code(s): E03.9 - Hypothyroidism, unspecified Plan: Recent TSH is normal, TPO AB is elevated, 111 Continue to take levothyroxine as prescribed Will recheck TSH level in 3 months (6) Vaccine counseling: Code(s): Z71.85 - Encounter for immunization safety counseling Plan: She has not up-to-date on the current flu vaccine She declines the flu vaccine Instructed on the importance of vaccinations and encouraged to get vaccinated for the flu Orders: Orders TSH reflex Free T4 3 Months E03.9 - Hypothyroidism, unspecified Lipid Panel 3 Months E78.00 - Pure hypercholesterolemia, unspecified Coding Level of Care Code Est Pt Prev Care [id number]) Diagnoses Normal physical exam Z00.00 Hypercholesterolemia E78.00 Anxiety and depression F41.9; F32.A Obesity E66.9 Hypothyroidism E03.9 Vaccine counseling Z71.85 Additional Codes FEROZ-7 Assessment Billing - FEROZ-7 Assessment Tool: FEROZ-7 Assessment 75092 ([id number])
== END 2023-11-29 08:55 | disposition home or self-care (01) ==
PROVIDERS: PCP Nurse Practitioner Family; Visit Provider Nurse Practitioner Family
DX: Z00.00 Encounter for general adult medical examination without abnormal findings (principal); E66.9 Obesity, unspecified; E78.00 Pure hypercholesterolemia, unspecified; Z68.39 Body mass index [BMI] 39.0-39.9, adult; F41.9 Anxiety disorder, unspecified; F32.A Depression, unspecified; E03.9 Hypothyroidism, unspecified; Z71.85 Encounter for immunization safety counseling
CPT/HCPCS: 99395

== ENCOUNTER 2023-12-02 07:50 | Outpatient (AMB) | payer BC, SELFPAY ==
--- NOTE | 2023-12-02 10:03 | A.OFFVIS_ITS ---
Intake VS Expanded 12/02/23 10:38 Height 5 ft 4 in Weight 227 lb 8 oz BMI 39.0 Body Fat % 40.6 Body Fat Mass 92.4 Fat Free Mass 135.3 Body Water % 22.6 Body Water Mass 51.4 Intake Visit Reasons: TV Consult/Transfer Marianela Allergies avocado Allergy (Severe, Verified 12/02/23 10:03) Itching sertraline Allergy (Unknown, Verified 11/29/23 08:38) Rash Medication List - Last Reconciled 12/02/23 by Samuel Tineo MD ascorbate calcium (vitamin C) 500 mg PO DAILY bupropion HCl 300 mg PO DAILY cholecalciferol (vitamin D3) mcg PO fluticasone propionate 50 mcg/actuation 1 spray intranasal DAILY guanfacine ER 2 mg PO DAILY lactobacillus combo no.11 (Probiotic) 1 cap PO DAILY levothyroxine (Synthroid) 150 mcg PO DAILY 30 days loratadine (Claritin) 10 mg PO DAILY multivitamin 1 tab PO DAILY vitamin B complex 1 tab PO DAILY HPI TV Consult/Transfer Marianela HPI Details Start time: 9.48am, End time: 10.48am ?I spent 50 minutes speaking with the patient on the phone plus an additional 10 minutes reviewing and updating records for a total of 60 minutes HPI Comments History of Present Illness Details Overall weight loss: 14.6lbs, or 6.02% TBWL Feels hungry during the day Is doing 2 Premier powdered shakes (1 scoop in 8oz almond milk), one Pure protein bar and one meal (3-5oz chicken or beef or 5oz salad) Exercise: is doing treadmill 4-6 days per week for 300 calories [facility] Medical History Hypothyroidism Sleep apnea Graves disease Depression Anxiety Surgical History History of surgery History of wisdom tooth extraction History of sinus surgery Family History Father No family history of mental disorder Diabetes Mother No family history of mental disorder Breast cancer Daughter No problems noted. Daughter No problems noted. Son No problems noted. 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 Plan for lap sleeve gastrectomy including upper GI endoscopy. All tests has been completed and reviewed and the patient is cleared for the surgery. ?If diaphragmatic or ventral hernias are present at time of surgery, these will be repaired laparoscopically as well. Risks and complications were discussed in detail including possible conversion to an open procedure, anastomotic leak, bleeding requiring transfusion, small bowel obstruction, , DVT and pulmonary embolism, cardiac, or pulmonary complications, as senior living compl ications such as anastomotic ulcer, insufficient weight loss and vitamin deficiencies. I emphasized the importance of close follow-up, adherence to instructions and good communication. So far she has proven to be an excellent communicator and very compliant with all our directions accomplishing a great weight loss. I believe that she is an excellent candidate and she is ready. 2. The patient participated in a structured preoperative lifestyle intervention program supervised by a physician the 5 months preceding the surgical procedure. The lifestyle intervention included a structured nutritional plan with a specific daily protein intake goal, an exercise plan with a 2000 calorie burn weekly goal, weekly behavior modification guidance and completion of eight 1- hour online nutritional classes and passing successfully the corresponding quizzes. Adherence to preoperative care plan was demonstrated by completing an extensive preoperative work-up. Program participation was demonstrated by c ompleting 5 visits with our medical team and by sharing weekly weight measurements weekly for 4 consecutive months via an approved body composition scale. Compliance to the lifestyle intervention was demonstrated by achieving a 14.6lbs weight-loss or 6.02% total body weight loss (TBWL). No medications were used to achieve this weight loss. In our published experience an over 6% preoperative TBWL, achieved by meeting the diet and exercise goals of our program improves surgical outcomes, reduces the potential for surgical complications, and predicts a statistically significant higher weight loss up to 6 years postoperatively. 3. Nutritional counseling. Start with 2 Premier protein shakes (HALF scoop EACH in 8oz low fat unsweetened almond milk each) at 7am-9am and 10am-12pm, 2 Pure protein bars at 1pm-3pm and 4pm-6pm, dinner at 7pm (8 forks of protein and 8 forks of salad/vegetables) AND another HALF protein, only if you feel hungry after dinner at 9pm-10pm. So you do 2 protein shakes, 2 to 2.5 protein bars and one meal per day. Meal to include lean meat (beef, fish, pork, turkey, chicken), or spanish yogurt, or egg whites, or beans with a salad with olive oil and fruits (berries, pears, apples, kiwi). Avoid salt, breads, potatoes, rice, pasta, desserts. 4. Each shake would be drunk slowly, like coffee in a period of 2 hours. 5. Cut each bar in 4 pieces and eat each piece in 30min ?to make each bar last 2 hours. 6. I emphasized the importance of measuring accurately the food portion and measure it when serving the food in plate 7. The meal portions include 8 full-size forks of meat and 8 full-size forks of salad. You always eat the meat portion but you can replace up to 4 forks for salad/vegetables with rice, potatoes or pasta, or a fruit ?if you like. The less you do it the better weight loss will be. 8. One full-size fork is what it can be scooped on the fork without falling aside and not what can be bit with the fork. Use regular forks like those you find in a typical restaurant. 9.? Please send me weight measurements weekly on Fridays. Always include your diet and exercise plan. 10. Change treadmill with an incline of 4.0 and speed of 3.0. Increase incline by 1 every 3 min to a max incline of 10.0, stay 3min at 10.0 and then return to 4.0 and repeat same steps until calorie goal is met. Goal is to burn 2000 calories per week on exercise, which means either 300 calories daily, or 400 calories 5 days per week, or 500 calories 4 days per week, or 650 calories 3 days per week. 11.?It is important of avoiding and for at least 18 months postoperatively and has been discussed at the infosession. 12. Goal is to lose at least 1.5-2lbs per week Telehealth Telehealth Location of provider rendering services: practice address Location of patient: address on file Patient Identification confirmed using: Name, : Yes Telehealth method: voice only Patient verbally consented to treatment: Yes Patient verbally consented to billing insurance company: Yes Patient informed of any privacy concerns related to visit: Yes Minutes spent on Phone/Video with Pt.: 60 Coding Level of Care Code Tele Est Pt Level 5 ([id number]) Diagnoses Class 2 severe obesity due to excess calories with serious comorbidity and body mass index (BMI) of 38.0 to 38.9 in adult E66.01; Z68.38 Obesity type: due to excess calories Obesity classification: adult class 2 (BMI 35 - 39.9) Serious obesity comorbidity presence: with serious comorbidity Body mass index: BMI 38.0-38.9 Time Spent (min) 60
[2023-12-02 10:38] VITALS: BMI 39.0
== END 2023-12-02 10:49 | disposition home or self-care (01) ==
LOC: HO.HBS 07:50
PROVIDERS: PCP Nurse Practitioner Family; Visit Provider Surgery
DX: E66.01 Morbid (severe) obesity due to excess calories (principal); Z68.38 Body mass index [BMI] 38.0-38.9, adult
CPT/HCPCS: 99443

== ENCOUNTER → 2023-12-02 07:50 | Outpatient (BNVA) | payer BC, SELFPAY | PROVIDERS: PCP Nurse Practitioner Family; Visit Provider Surgery ==

== ENCOUNTER 2023-12-21 11:52 | Outpatient (AMB) | payer BC, SELFPAY ==
--- NOTE | 2023-12-21 13:05 | A.OFFVIS_ITS ---
Intake VS Expanded 12/21/23 13:18 Height 5 ft 4 in Weight 224 lb 6 oz BMI 38.5 Body Fat % 49.7 Body Fat Mass 111.6 Fat Free Mass 113 Visceral Fat Rating 20 Body Water % 34.5 Body Water Mass 77.4 Basal Metabolic Rate/Score 1,471 Intake Visit Reasons: TV Pre Op LSG 01/03/24 Allergies avocado Allergy (Severe, Verified 12/21/23 13:06) Itching sertraline Allergy (Unknown, Verified 12/21/23 13:06) Rash Medication List - Last Reconciled 12/21/23 by Samuel Tineo MD ascorbate calcium (vitamin C) 500 mg PO DAILY bupropion HCl 300 mg PO DAILY cholecalciferol (vitamin D3) mcg PO fluticasone propionate 50 mcg/actuation 1 spray intranasal DAILY lactobacillus combo no.11 (Probiotic) 1 cap PO DAILY levothyroxine (Synthroid) 150 mcg PO DAILY 30 days loratadine (Claritin) 10 mg PO DAILY multivitamin 1 tab PO DAILY ondansetron 4 mg PO Q12H pantoprazole 40 mg PO DAILY polyethylene glycol 3350 (Miralax) 17 grams PO DAILY sucralfate 10 mL PO BID vitamin B complex 1 tab PO DAILY HPI TV Pre Op LSG 01/03/24 HPI Details Start time: 12.57pm, End time: 1.27pm ?I spent 25 minutes speaking with the patient on the phone plus an additional 5 minutes reviewing and updating records for a total of 30 minutes HPI Comments History of Present Illness Details Overall weight loss: 17.8lbs, or 7.34% TBWL Is doing 2 Premier protein shakes (1 scoop each in almond milk), 2 Pure protein bars and one meal (8 forks of meat and 8 forks of salad or vegetables) Exercise: doing treadmill (speed: 3mph, incline 4-10) for 500 calories, 5 days per week PFSH Medical History Hypothyroidism Sleep apnea Graves disease Depression Anxiety Surgical History History of surgery History of wisdom tooth extraction History of sinus surgery Family History Father No family history of mental disorder Diabetes Mother No family history of mental disorder Breast cancer Daughter No problems noted. Daughter No problems noted. Son No problems noted. Other Mental health disorder Social History Household Members: Spouse and Family Housing: House Alcohol intake: never Patient Tobacco Use Status: Former Tobacco user Cigarettes Per Day: 2 Years Smoked: 10 years e-Cigarette/Vaping Use: Never Used service: No Current occupational status: employed Current occupation: [employer] Sexual orientation: Straight/Heterosexual Gender identity: Female Cognitive needs: No Hearing needs: No Vision needs: No Assessment & Plan Assessment & Plan (1) Obesity: Code(s): E66.9 - Obesity, unspecified Qualifiers: Obesity type: due to excess calories Obesity classification: adult class 2 (BMI 35 - 39.9) Serious obesity comorbidity presence: with serious comorbidity Body mass index: BMI 38.0-38.9 Qualified Code(s): E66.01 - Morbid (severe) obesity due to excess calories; Z68.38 - Body mass index [BMI] 38.0- 38.9, adult Plan: 1. Plan for lap sleeve gastrectomy including upper GI endoscopy. All tests has been completed and reviewed and the patient is cleared for the surgery. ?If diaphragmatic or ventral hernias are present at time of surgery, these will be repaired laparoscopically as well. Risks and complications were discussed in detail including possible conversion to an open procedure, anastomotic leak, bleeding requiring transfusion, small bowel obstruction, , DVT and pulmonary embolism, cardiac, or pulmonary complications, as buttermaker continuous churn complications such as anastomotic ulcer, insufficient weight loss and vitamin deficiencies. I emphasized the importance of close follow-up, adherence to instructions and good communication. So far she has proven to be an excellent communicator and very compliant with all our directions accomplishing a great weight loss. I believe that she is an excellent candidate and she is ready. 2. Preop prescriptions were provided and explained the purpose of each one. Need to be purchased preop. Start Pantoprazole now as you get it from the pharmacy, 1 pill per day. Sucralfate and Zofran are for after surgery as needed. 3. Bowel prep: please do 7 packets ?of Miralax mixing each one with a an 8oz glass of water, crystal light, gatorade zero, or propel ?on 01/01/24 and the same amount on 01/02/24. The Miralax you begin with one packet at a time in 8oz water or crystal light, gatorade zero, or propel ?as early in the day as you can and you do them back to back until you finish them. Continue the protein shakes during? the bowel prep. 4. Needs to purchase 1oz medicine cups . 5. Needs to purchase Children's liquid Tylenol for postop pain control. 6. Avoid aspirin, motrin, Advil, Aleve, Ibuprofen, Naproxyn. Tylenol is OK. 7. She needs to purchase the Celebrate 4:1 protein shakes from the hospital's gift shop. 8. Will do basic preop blood work-up any day between Tuesday12/26/23 and Tuesday12/30/23 fasting for 12 hours and is scheduled to see the Anesthesiologist prior to the day of surgery. 9. Importance of adherence to postop folllow-up and recommendations was underscored and she understands that. 10. Stop food and bars as of Tuesday12/23/23 and continue with 5 Premier protein shakes (ONE scoop EACH in 8oz almond milk) at 7am-9am, 10am-12pm, 1pm-3pm, 4pm- 6pm and at 7pm-9pm. 11. No soups, broths or V8 12. The patient's?medical?history has been reviewed and they are considered low risk for post op DVT and therefore DVT prophylaxis is not considered necessary. Travel after surgery was reviewed. The patient has not disclosed any travel plans during the first 30 days after surgery and they have been advised that within the first 30 days after surgery any bus, plane, train or car travel over 2 hours in duration is contraindicated due to the possibility of developing blood clots from immobility. Any travel, needs to include periods of ambulation of 10 minutes in duration every 2 hours.? Patient was instructed to discuss any plans for travel during this period with their bariatric surgeon.? 13. Please take at the day of surgery the following medications: NONE the day of surgery 14. Stop any control pills and don't use them for one month after surgery 15. Absolutely no smoking or vaping, or marijuana until the surgery and for at least the first 4 weeks. Only nicotine patches are allowed. 16. Send me weight measurements on Tuesday12/23/23 and 12/30/23 and then on Tuesday01/03/24 the day of surgery before you go to the hospital. 17. Avoid any steroids by mouth for any reason. Let me know if someone prescribes them to you 18. These instructions supersede anything else you read in the handbook, anything you watched in videos or classes or you were told by any other provider. If there is any conflict, you follow the above instructions and nothing else. Orders: Orders Comprehensive Met. Panel Today E66.9 - Obesity, unspecified, E78.00 - Pure hypercholesterolemia, unspecified, G47.33 - Obstructive sleep apnea (adult) (pediatric) Lipid Panel Today E66.9 - Obesity, unspecified, E78.00 - Pure hypercholesterolemia, unspecified, G47.33 - Obstructive sleep apnea (adult) (pediatric) C Reactive Protein Today E66.9 - Obesity, unspecified, E78.00 - Pure hypercholesterolemia, unspecified, G47.33 - Obstructive sleep apnea (adult) (pediatric) Partial Thromboplastin Time Today E66.9 - Obesity, unspecified, E78.00 - Pure hypercholesterolemia, unspecified, G47.33 - Obstructive sleep apnea (adult) (pediatric) TSH reflex Free T4 Today E66.9 - Obesity, unspecified, E78.00 - Pure hypercholesterolemia, unspecified, G47.33 - Obstructive sleep apnea (adult) (pediatric) Prothrombin Time INR Today E66.9 - Obesity, unspecified, E78.00 - Pure hypercholesterolemia, unspecified, G47.33 - Obstructive sleep apnea (adult) (pediatric) Type and Screen Today E66.9 - Obesity, unspecified, E78.00 - Pure hypercholesterolemia, unspecified, G47.33 - Obstructive sleep apnea (adult) (pediatric) Hemoglobin A1c Today E66.9 - Obesity, unspecified, E78.00 - Pure hypercholesterolemia, unspecified, G47.33 - Obstructive sleep apnea (adult) (pediatric) Complete Blood Count Auto Diff Today E66.9 - Obesity, unspecified, E78.00 - Pure hypercholesterolemia, unspecified, G47.33 - Obstructive sleep apnea (adult) (pediatric) Insulin Today E66.9 - Obesity, unspecified, E78.00 - Pure hypercholesterolemia, unspecified, G47.33 - Obstructive sleep apnea (adult) (pediatric) Medications: New pantoprazole 40 mg PO DAILY 90 tabs 0RF K21.9 - Gastro-esophageal reflux disease without esophagitis sucralfate 10 mL PO BID 600 mL 2RF K21.9 - Gastro-esophageal reflux disease without esophagitis ondansetron Only take one every 12 hours as needed if you have nausea 4 mg PO Q12H 20 tabs 0RF nausea and vomiting R11.0 - Nausea polyethylene glycol 3350 (Miralax) Mix each packet with 8oz of water, Crystal light, or Gatorade zero, or Propel and do 7 packets on 01/01/24 and another 7 packets on 01/02/24 17 grams PO DAILY 14 ea 0RF Z01.818 - Encounter for other preprocedural examination Telehealth Telehealth Location of provider rendering services: practice address Location of patient: address on file Patient Identification confirmed using: Name, : Yes Telehealth method: voice only Patient verbally consented to treatment: Yes Patient verbally consented to billing insurance company: Yes Patient informed of any privacy concerns related to visit: Yes Minutes spent on Phone/Video with Pt.: 30 Coding Level of Care Code Tele Est Pt Level 4 (84499) Diagnoses Class 2 severe obesity due to excess calories with serious comorbidity and body mass index (BMI) of 38.0 to 38.9 in adult E66.01; Z68.38 Obesity type: due to excess calories Obesity classification: adult class 2 (BMI 35 - 39.9) Serious obesity comorbidity presence: with serious comorbidity Body mass index: BMI 38.0-38.9 Time Spent (min) 30
[2023-12-21 13:18] VITALS: BMI 38.5
== END 2023-12-21 13:29 | disposition home or self-care (01) ==
LOC: HO.HBS 11:52
PROVIDERS: PCP Nurse Practitioner Family; Visit Provider Surgery
DX: E66.01 Morbid (severe) obesity due to excess calories (principal); Z68.38 Body mass index [BMI] 38.0-38.9, adult
CPT/HCPCS: 99499

== ENCOUNTER → 2023-12-21 11:52 | Outpatient (BNVA) | payer BC, SELFPAY | PROVIDERS: PCP Nurse Practitioner Family; Visit Provider Surgery ==

== ENCOUNTER 2023-12-26 08:05 | Outpatient (REF) | payer BC, SELFPAY ==
[2023-12-26 08:37] LABS: MANUAL DIFF FLAG NO
[2023-12-26 08:56] LABS: Prothrombin Time 12.4 SEC (11.1-13.3)
[2023-12-26 08:59] LABS: Partial Thromboplastin Time 27.6 SEC (26.0-36.8)
[2023-12-26 09:03] LABS: Basophils Percent Auto 0.5 % (0-2); Eosinophils Absolute Auto 0.1 X10*3/uL (0.0-0.4); Eosinophils Percent Auto 1.9 % (0-4); Hematocrit 41.7 % (37.0-47.0); Imm Gran Abs Auto 0.02 X10*3/uL (0.00-0.03); Imm Gran Pct Auto 0.3 % (0.0-0.4); Lymphocytes Absolute Auto 1.4 X10*3/uL (1.2-4.9); Mean Corpuscular HGB Conc 33.6 g/dl (31.0-35.0); Mean Corpuscular Volume 92.3 fL (80.0-98.0); Mean Platelet Volume 8.2 fL (9.4-12.3); Monocytes Absolute Auto 0.4 X10*3/uL (0.1-1.2); Monocytes Percent Auto 6.9 % (2-11); Neutrophils Absolute Auto 3.9 x10*3/uL (2.0-8.3); Neutrophils Percent Auto 66.4 % (45-73); Platelet Count 325 X10*3/uL (160-400); Red Blood Count 4.52 X10*6/uL (4.20-5.50); Red Cell Distribution Width 12.5 % (11.0-16.0); White Blood Count 5.8 X10*3/uL (4.8-10.8)
[2023-12-26 09:23] LABS: Estimated Average Glucose 108 mg/dL; Hemoglobin A1c % 5.4 % (<6.0)
[2023-12-26 09:26] LABS: Alanine Aminotransferase 22 U/L (0-31); Albumin Level 4.2 g/dL (3.5-5.0); Alkaline Phosphatase 95 U/L (39-117); Anion Gap 12 (12-20); Aspartate Amino Transferase 20 U/L (5-31); Bilirubin Total 0.7 mg/dL (0.0-1.0); Blood Urea Nitrogen 13 mg/dL (9-16); C Reactive Protein 0.82 mg/dL (< or = 0.50); Carbon Dioxide 27 mmol/L (22-29); Chloride 104 mmol/L (96-108); Cholesterol 221 mg/dL (<200); Estimated Glomerular Filt Rate > 60; Glucose Random 110 mg/dL (60-115); HDL Cholesterol 45 mg/dL (>40); LDL Cholesterol Calculated 152 mg/dL (<100); Potassium 3.9 mmol/L (3.3-5.1); Sodium 139 mmol/L (135-145); Total Protein 7.6 g/dL (6.5-8.0); Triglycerides 120 mg/dL (<150)
[2023-12-26 09:48] LABS: TSH reflex Free T4 1.89 uIU/mL (0.32-4.0)
[2023-12-26 10:42] LABS: Insulin 7 uU/mL (2-29)
== END 2023-12-26 08:06 | disposition home or self-care (01) ==
LOC: HO.LAB 08:05
PROVIDERS: Visit Provider Surgery
DX: E66.9 Obesity, unspecified (principal); E78.00 Pure hypercholesterolemia, unspecified; G47.33 Obstructive sleep apnea (adult) (pediatric)
CPT/HCPCS: 36415; 80053; 80061; 83036; 83525; 84443; 85025; 85610; 85730; 86140

== ENCOUNTER 2024-01-03 05:54 | Inpatient (IN) | payer BC, SELFPAY ==
[2023-12-26 14:16] VITALS: BMI 37.0
[2024-01-03] VITALS (19 sets, daily range): BP systolic 133–175; BP diastolic 80–98; PULSE 60–75; RESP 11–18; TEMP 36.1–36.5; O2SAT 97–100; BMI 36.4
[2024-01-03 06:23] LABS: UPreg QC Valid YES; Urine Pregnancy NEGATIVE (NEGATIVE)
[2024-01-03] MEDS: Aprepitant 32 MG/4.4 ML VIAL IVPUSH (06:37)
[2024-01-03] MEDS: Lactated Ringers 1,000 ML 999 ML IV (06:37)
--- NOTE | 2024-01-03 07:07 | HO.ANESPROP2 ---
HPI - Anesthesia Eval Consult details Narrative: 33 yo female patient for EGD, Laparoscopic Sleeve gastrectomy, possible diaphragmatic hernia repair, possible ventral hernia repair, possible open PMFSH Active Problems Active Problems: All Active Problems BMI 36.4 Vaccine counseling (Acute) Hypercholesterolemia (Acute) Food allergy (Acute) Anxiety disorder, unspecified (Acute) Obesity (Acute) Loud snoring (Acute) Non-restorative sleep (Acute) MANDIE (obstructive sleep apnea) (Acute)- Mild. CPAP not recommended Low TSH level (Acute) Elevated LDL cholesterol level (Acute) Elevated fasting glucose (Acute) Anxiety and depression (Acute) Laboratory tests ordered as part of a complete physical exam (CPE) (Acute) Encounter for weight management (Acute) BMI 40.0-44.9, adult (Acute) Vaginal itching (Acute) High cholesterol (Acute) Normal physical exam (Acute) Hypothyroidism (Acute) Anxiety (Acute) Graves disease (Acute) Past Medical History Medical History Hx of Hypothyroidism Sleep apnea Graves disease Depression Anxiety Family History Family History Father No family history of mental disorder Diabetes Mother No family history of mental disorder Breast cancer Daughter No problems noted. Daughter No problems noted. Son No problems noted. Other Mental health disorder Family history of problems with anesthesia: No Surgical History Surgical History History of surgery History of wisdom tooth extraction History of sinus surgery History of Problems with Anesthesia: No Social History Social History Household Members: Spouse and Family Housing: House Are you a primary home health aide caregiver to a significant other at home: No Do you presently have visiting nurse or other home services: No Alcohol intake: never Patient Tobacco Use Status: Former Tobacco user Cigarettes Per Day: 2 Years Smoked: 10 years e-Cigarette/Vaping Use: Never Used Use of substances other than those prescribed or required for medical reasons: No Have you been hit, kicked, punched, or otherwise hurt by someone within the past year? 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 Sexual orientation: Straight/Heterosexual Gender identity: Female Cognitive needs: No Hearing needs: No Vision needs: No Meds Allergies Allergy/AdvReac Type Severity Reaction Status Date / Time avocado Allergy Severe Itching Verified 12/21/23 13:06 sertraline Allergy Unknown Rash Verified 12/21/23 13:06 Active Medications: Current Medications Lactated Ringer's (Lr) 1,000 mls @ 999 mls/hr IV .Q1H1M JEFFREY Stop: 01/03/24 08:00 Last Admin: 01/03/24 06:37 Dose: 999 mls/hr Home Medications ?Medication ?Instructions ?Recorded ?Confirmed ?Last Taken ?Type fluticasone propionate 50 1 spray intranasal DAILY PRN 07/16/22 12/26/23 Unknown History mcg/actuation nasal Allergy Symptoms spray,suspension multivitamin 1 tab PO DAILY 07/16/22 01/03/24 12/27/23 History loratadine 10 mg tablet (Claritin) 10 mg PO DAILY 06/14/23 01/03/24 12/27/23 History ascorbate calcium (vitamin C) 500 500 mg PO DAILY 07/14/23 01/03/24 12/27/23 History mg tablet cholecalciferol (vitamin D3) 62.5 62.5 mcg PO DAILY 07/14/23 01/03/24 12/27/23 History mcg (2,500 unit) capsule lactobacillus combo no.11 15 1 cap PO DAILY 07/14/23 01/03/24 12/27/23 History billion cell sprinkle capsule (Probiotic) vitamin B complex 1 tab PO DAILY 07/14/23 01/03/24 12/27/23 History bupropion HCl 300 mg 24 hr tablet, 300 mg PO DAILY 10/11/23 01/03/24 01/02/24 History extended release hydroxyzine HCl 25 mg tablet 25 mg PO TID PRN Anxiety 12/26/23 01/03/24 01/02/24 History Exam Height,Weight and Vital Signs: Height 5 ft 4.5 in Weight 97.579 kg Last Vital Signs Temp 97.0 F 01/03/24 06:35 Pulse 70 01/03/24 06:35 BP 133/87 01/03/24 06:35 Pulse Ox 98 01/03/24 06:35 O2 Del Method Room Air 01/03/24 06:35 Pertinent Lab Results Pertinent Lab Results: Laboratory Tests 12/26/23 01/03/24 08:27 06:15 Urine Test NEGATIVE Blood Type A Positive Antibody Screen NEGATIVE Airway Mallampati Class: II TM Dist: >3cm Neck ROM: Full Loose/Missing/Broken Teeth: Yes (Missing molars) Heart: RRR Lungs: CTAB Assessment and Plan Assessment Anesthesia Assessment: Anesthesia Plan Discussed and Chart Reviewed Final Anesthetic Review Family History of Problems with Anesthesia: No History of Problems with Anesthesia: No NPO: Yes ASA Class: III Final Preanesthetic Review: No Changes in Pt Med Stat, Meds/Allgs Chart Reviewed, Consent Obtained/Reviewed and Anes Risks/Benef Reviewed Patient Risk: Intermediate Procedure Risk: Intermediate Assessment/Block/Sedation in SS: Assess/Block/Sedation-SS Anesthetic Plan Anesthetic Plan: GA Disposition: Standard PACU and Inp. Admit - Standard Bed
--- NOTE | 2024-01-03 07:38 | P.BOP_ITS ---
Brief Operative Note Date of Service: 01/03/24 Pre-op diagnosis: Morbid obesity with comorbidities (see below) Post-op diagnosis: same Procedure: INITIAL PATIENT BMI ON PRESENTATION AT OUR OFFICE: 41.6 kg/m2 LAST BMI BEFORE SURGERY: 37.2 kg/m2 COMORBIDITIES: sleep apnea, depression, anxiety, hypothyroidism, GERD, liver steatosis ?The patient presented to the Weight Management Program with significant obesity that was negatively impacting the patient's comorbidities as listed above.? The program is a phased program with a special focus on preoperative medical weight management to promote substantial weight loss and prepare the patients for the second phase of the program: bariatric surgery. The patient participated in an intensive weekly lifestyle ?intervention and exercise program during which the patient ?has lost between the initial office visit and the last preoperative visit 27.2lbs, or 11.22% of initial actual body weight. It was deemed appropriate for the patient to now have bariatric surgery. In light of the current Covid-19 pandemic and the well documented strong association of obesity and increased risk of worse outcomes if infected with Covid-19 (REFERENCES: https://pubmed.ncbi.nlm.nih.gov/45450845/ ,? https://pubmed.ncbi.nlm.nih.gov/24066399/ ), any delay in undergoing bariatric surgery may lead to the patient's worsening health condition and increased?risk of more severe Covid-19 disease if infected. In addition a recent?study from [facility] published in [facility] Surgery on 09/14/2021 ([email or web address]) found that, among patients with obesity, substantial weight loss achieved with surgery was associated with improved outcomes of COVID-19 infection. The findings suggest that obesity can be a modifiable risk factor for the severity of COVID-19 infection. In addition, the patient met the BMI-criteria for bariatric surgery based on the BMI on initial presentation. The patient should not be penalized for achieving such weight loss because ?it is not sustainable long-term without surgical intervention and it was achieved in preparation for bariatric surgery ?under my direction and based on my published research ([email or web address]).[email or web address] and? https://www.soard.org/article/[email or web address](96)38116-X/pdf ) ?that a 10% preop erative weight loss improves long-term weight loss after surgery and reduces perioperative complications.? Insurance carriers such as [facility] have endorsed my recommendations ?and have included in their policies criteria to include a 10% preoperative weight loss requirement. PROCEDURE: Esophago-gastroscopy, laparoscopic sleeve gastrectomy and laparoscopic gastropexy INDICATIONS: This is a 33 year-old female who was electively scheduled for laparoscopic, possibly open sleeve gastrectomy. The risks and complications of the procedure were discussed with the patient in advance, particularly the poss ibility of ; pulmonary embolism; staple line leak; bleeding; GERD; cardiac, pulmonary, or renal complications; as well as long-term problems such as insufficient weight loss, vitamin deficiency, strictures, or ulcers. The patient understood all the risks, and was in agreement to proceed with surgery. DESCRIPTION OF PROCEDURE: After informed consent was obtained from the patient, the patient was given preoperative antibiotics, and was transferred to the operating room. After successful induction of general anesthesia, pneumatic compression devices were placed on both lower extremities. An upper endoscopy was performed next. The oropharynx and esophagus appeared to be within normal limits. There was no diaphragmatic hernia present consistent with the findings of the preoperative upper GI. The stomach was entered. Then after all fluid and air were suctioned and the stomach was fully decompressed, the scope was withdrawn and secured in the mid esophagus. The patient was then prepped and draped in the usual sterile manner, and abdominal access was established at the right upper quadrant with the Wendy technique. A 12 mm blunt port was inserted, and the abdomen was insufflated with CO2 to a pressure of 15 mmHg. Under direct visualization, additional ports were placed, specifically two 5 mm Versi-step ports to the left upper quadrant, and a 5 mm Versi-Step port to the right upper quadrant. 1% lidocaine plain was used to infiltrate all port sites as well as all fascia defects. Following that, the patient was placed in a steep reverse Trendelenburg position. An additional 5 mm port was placed to the right flank for the Mediflex retractor that was used to retract the left lobe of the liver. The gastro-esophageal fat pad was opened with the ultrasonic device ([employer], [employer]) and the anterior esophagus and hiatus were exposed. The angle of His was opened with the ultrasonic device the fundus of the stomach from any diaphragmatic and splenic attachments. I then opened the gastrocolic ligament between the transverse colon and the greater curvature of the stomach with the ultrasonic device to enter the lesser sac and facilitate the ligation of the short gastric vessels. I started at a mid-point along the greater curvature and using the Thunderbeat, all short gastric vessels were divided all the way to the angle of His until the left adriano was completely dissected at its entirety. I then divided the gastro-colic ligament distally to a distance of about 3-4 cm proximal to the pylorus.? The stomach was then divided transversely with two Endo KATHARINE-45 purple and three KATHARINE-60 articulating purple loads using the Likeability stapler and loads. Every effort was made that the gastric sleeve had a tubular shape and an even caliber throughout. Once the sleeve resection was completed, the staple line of the gastric sleeve was reinforced with Hemoclips. The resected stomach was retrieved without difficulty from the Wnedy port. A gastropexy was then performed in order to prevent postoperative GERD and partial gastric volvulus. Several interrupted 2.0 Surgidac sutures were placed between the sleeve's staple line and the previously divided greater omentum and gastro-colic ligament using the Endo-Stitch device. ?An upper endoscopy was performed. There was no narrowing at the GE junction. The scope was easily advanced all the way to the pylorus which was clearly visualized. There was no narrowing anywhere and the sleeve's caliber was even throughout. The sleeve's staple line was inspected and there was no evidence of ischemia, bleeding or dehiscence. At that point the gastroscope was withdrawn from the patient?s mouth while we were decompressing the bowel and the stomach from any remaining air. I looked into the lesser sac to see how the sleeve was situating and it was situating well. There was no bleeding from the staple line, spleen, or short gastric vessels. The Mediflex retractor was removed, and the undersurface of the liver was inspected and there was no bleeding. The patient was placed in supine position. I closed the fascial defect of the 12 mm port site with a figure of eight #1 Polysorb suture. Then 30cc Ropivacaine plain with 10 mg of Dexamethasone were used to infiltrate the fascial closure as well as all skin incisions. At this point, the abdomen was deflated, all ports were removed under direct vision, and no bleeding was noted from any of the port sites. The skin incisions were irrigated with saline and were closed with 4-0 absorbable monofilament sutures. Steri-Strips and OpSites were used to cover all incisions. The patient was extubated and was transferred in stable condition to the recovery room for further care. I was present and performed all hammond parts of the procedure. Murali Dowling was the operations manager assistant. There were no residents to assist with this case. Seb Tineo MD, PhD, FACS Surgeon: Samuel Tineo MD Anesthesia: GETA, local and other (TAP block & 5ml Zynrelef) Was an Advertising Strategist used for this Procedure?: No Advertising Strategist: Marianela Dowling Estimated blood loss (mL): 10 IV fluids (mL): 2,500 Urine output (mL): 0 (No Ruiz to record output) Pathology: other (Stomach) Condition: stable Disposition: PACU
--- NOTE | 2024-01-03 07:41 | MHC.SHP ---
Pre-Procedural Eval Section A - 24 Hr Update-Section A only Date of Service: 01/03/24 The patient is an INPATIENT: Yes The patient has been examined within 24 hours of the surgical procedure. The History & Physical has been completed within 30 days and I have reviewed it.: Yes Section B - Complete if H&P > 30 days Chief Complaint: Obesity Relevant Family History (Specify if Yes): No Relevant Social History: None Present Medications: None Medical History: No relevant PMH History of Previous Operations: No relevant previous surgery Allergies: Allergies Allergy/AdvReac Type Severity Reaction Status Date / Time avocado Allergy Severe Itching Verified 12/21/23 13:06 sertraline Allergy Unknown Rash Verified 12/21/23 13:06 Review of Systems Sugical H&P ROS: Negative: Constitution, Cardiovascular, Respiratory, Neurological, Psychiatric, Hem-Onc, Allergic/Immunologic, Gastrointestinal, Genitourinary, Musculoskeletal, Integumentary, Endocrine and Eyes/Ears/Nose/Throat Exam Surgical H&P Exam: Normal: HEENT, Normal: Heart, Normal: Lungs, Normal: Extremities, Normal: Abdomen, Normal: Skin and Normal: Neurological Plan Diagnosis/Plan: Unchanged I have reviewed the history and physical and performed a pertinent physical examination on my patient. No changes have occurred unless specified. Time Spent With Patient Time: Total time managing care of this patient today ____ minutes.
--- NOTE | 2024-01-03 07:42 | P.PNGS_ITS ---
Subjective Subjective Date of Service: 01/04/24 Interval history: Feels well. Mild incisional pain. She is tolerating phase 1 bariatric diet Physical Exam 2 Vital Signs: Vital Signs: Last Vital Signs Temp 97.0 F 01/03/24 06:35 Pulse 70 01/03/24 06:35 BP 133/87 01/03/24 06:35 Pulse Ox 98 01/03/24 06:35 O2 Del Method Room Air 01/03/24 06:35 BMI result Body Mass Index 36.4 GI: Inspection: Yes normal to inspection, Yes incision (clean, dry and intact) and Yes obesity Palpation (GI): Soft to palpation Extrem: Right lower extremity: normal to inspection (no calf tenderness) L eft lower extremity: normal to inspection (no calf tenderness) Objective Data Active Medications Lactated Ringer's (Lr) 1,000 mls @ 999 mls/hr IV .Q1H1M JEFFREY Stop: 01/03/24 08:00 Last Admin: 01/03/24 06:37 Dose: 999 mls/hr Documented By: ROSALES Labs 01/04/24 05:42 01/04/24 05:42 Labs: Laboratory Results - last 24 hr 01/03/24 06:15 Urine Test NEGATIVE Procedures Date of Service Date of Service: 01/04/24 Progress Note: A&P Assessment and plan (1) Obesity: Status: Acute Assessment and Plan: s/p laparoscopic sleeve gastrectomy and gastropexy Doing well Will check am labs and if OK the patient will be discharged home (2) BMI 37.0-37.9, adult: Status: Acute (3) MANDIE (obstructive sleep apnea): Status: Acute (4) Hypothyroidism: Status: Acute (5) Anxiety and depression: Status: Acute (6) GERD (gastroesophageal reflux disease): Status: Acute (7) Steatosis, liver: Status: Acute (8) S/P laparoscopic sleeve gastrectomy: Status: Acute Time Spent With Patient Time: Total time managing care of this patient today ____ minutes. Quality Stroke Does the patient have a stroke diagnosis?: No VTE Prior VTE?: No VTE Risk Level:: Surgical - moderate VTE Device Contraindication: N/A - Device Ordered VTE Drug Contraindication: Treatment Not Indicated
--- NOTE | 2024-01-03 10:31 | P.DS_ITS ---
DS: Providers Provider Date of Service: 01/03/24 Date of admission: 01/03/24 05:54 Primary care physician: Migue Sanderson CNP DS: Diagnosis Discharge Diagnosis (1) Obesity: Status: Acute (2) BMI 37.0-37.9, adult: Status: Acute (3) MANDIE (obstructive sleep apnea): Status: Acute (4) Hypothyroidism: Status: Acute (5) Anxiety and depression: Status: Acute (6) GERD (gastroesophageal reflux disease): Status: Acute (7) Steatosis, liver: Status: Acute (8) S/P laparoscopic sleeve gastrectomy: Status: Acute DS: Summary Hospital Course Hospital Course: ADMITTING DIAGNOSIS: morbid obesity,?mild MANDIE, liver steatosis, GERD, HLD, anxiety/depression, elevated fasting glucose, hypothyroidism DISCHARGE DIAGNOSIS: same, s/p laparoscopic sleeve gastrectomy and gastropexy PAST SURGICAL HISTORY:? History of wisdom tooth extraction History of sinus surgery PROCEDURE: upper endoscopy, laparoscopic sleeve gastrectomy and gastropexy DISCHARGE SUMMARY: History of Present Illness: The patient is a 33?year-old woman with a BMI of?36.4 kg/m2 and associated co- morbidities as described above. The patient had extensive work-up, lost?27 lbs preoperatively and was electively scheduled for laparoscopic, possible open sleeve gastrectomy and gastropexy. Risks and complications of the surgery were discussed with the patient in advance, particularly the possibility of , pulmonary embolism, anastomotic leak, bleeding, bowel injury, GERD, cardiac, renal or pulmonary complications. The patient understood all the risks and was in agreement with the surgical plan. Hospital Course: The patient underwent an uneventful laparoscopic sleeve gastrectomy with gastropexy on the day of admission. Postoperatively, the patient was transferred to the surgical floor. The patient received IV Acetaminophen and IV dilaudid for pain control. Patient was started on bariatric phase 1 diet POD #0. On postoperative day one, the patient was feeling well without nausea, vomiting, fevers, or tachycardia. The patient had some mild incisional pain and the abdomen was soft.? On the morning of postoperative day one, the patient was continued on 1 ounce of water or ice every half hour. During the day, the patient did fairly well, having some incisional pain, but able to ambulate adequately and to tolerate liquids well. Since the patient is doing well, we decided that the patient was ready to be discharged. The patient was given instructions to follow-up with me next week and to call my office for any fever over 101, persistent abdominal pain, nausea, vomiting, GERD, symptoms of DVT such as calf tenderness, or leg swelling, or pulmonary embolism such as chest pain or shortness of breath.? The patient was also instructed to drink 40-60 ounces of liquids per day using the 1-ounce cups. The patient had been given prescriptions for Tylenol for pain, Zofran prn for nausea, and pantoprazole and carafate previously. The patient was encouraged to ambulate and use the incentive spirometer. The patient was allowed to shower, but no baths, and encouraged to stay active at home. All of these instructions were given to the patient personally. All questions were answered and the patient understood all instructions, the instructions were also given to the patient in print. Time Attestation Discharge Coordination Time (in mins): 30 Quality: Safe Use of Opioids Does Pt have an Active Cancer Diagnosis on the Problem List?: No Quality: Stroke Does the patient have a stroke diagnosis?: No Physical Exam Vital Signs: Vital Signs: Last Vital Signs Temp 97.7 F 01/03/24 10:20 Pulse 61 01/03/24 10:30 Resp 13 01/03/24 10:30 BP 161/90 H 01/03/24 10:30 Pulse Ox 100 01/03/24 10:30 O2 Del Method Nasal Cannula 01/03/24 10:30 O2 Flow Rate 3 01/03/24 10:30 BMI result Body Mass Index 36.4 DS: Data Data Completed and Pending Pending studies at discharge: Pending at discharge 01/03/24 09:21 Surgical [PTH] Routine 01/03/24 10:19 Surgical [PTH] Routine Labs on day of discharge: Laboratory Results - last 24 hr 01/03/24 06:15 Urine Test NEGATIVE Discharge Plan Discharge Anticipated Discharge Date/Time: 01/04/24 10:00 Patient Disposition: Home, Self-Care Discharge Diagnosis: s/p laparoscopic sleeve gastrectomy with gastropexy Referrals: Migue Sanderson, MARIAM [Primary Care Provider] - 1 Week Discharge Medications: Continued levothyroxine [Synthroid] 150 mcg tablet 150 mcg PO DAILY 30 Days Qty: 30 2RF hydroxyzine HCl 25 mg tablet 25 mg PO TID PRN (Reason: Anxiety) bupropion HCl 300 mg tablet extended release 24 hr 300 mg PO DAILY fluticasone propionate 50 mcg/actuation spray,suspension 1 spray intranasal DAILY PRN (Reason: Allergy Symptoms) loratadine [Claritin] 10 mg tablet 10 mg PO DAILY pantoprazole 40 mg tablet,delayed release (DR/EC) 40 mg PO DAILY Qty: 90 0RF sucralfate 100 mg/mL suspension 10 ml PO BID Qty: 600 2RF ondansetron 4 mg tablet,disintegrating 4 mg PO Q12H Qty: 20 0RF Rx Instructions: Only take one every 12 hours as needed if you have nausea Discontinued vitamin B complex Tablet 1 tab PO DAILY Discharge Orders: Discharge Order (Routine); Ordered 01/04/24 Ordered By: Samuel Tineo Activity on Discharge: No heavy lifting Stand Alone Forms: Patient Portal Discharge page Print Language: Luxembourgish Care Plan Goals: weight loss Health Concerns: obesity Plan of Treatment: No tub baths, sex or returning to work until discussed at first post op appointment. No alcohol, tobacco or illegal drug use. Continue to use incentive spirometer hourly while awake. Walk in home for 5- 10 minutes every 2 hours during the first week. Wear abdominal binder with activity. Follow all meal plan instructions from your bariatric surgeon. Review bariatric handbook and call with any questions. Discharge Instructions 1. Please call your doctor or come back to the emergency room should any new symptoms arise. 2. Activity: abstain from alcohol,? limited stair climbing, no bending, no driving, no exercise, no illicit substances, no lifting, no sex, no tub bath, no work. 4. Diet: follow your bariatric surgeons recommendations for advancing diet. 5. Dressing Change/Wound Care: Your incisions are covered with waterproof dressings. You can shower with these and pat dry. Do not rub over dressings or incisions. If the area is tender, you may apply an ice pack for short intervals (no more than 20 minutes on, followed by at least 20 minutes off). Do not apply heat. Do not use creams, lotions, or topical antibiotics unless instructed to do so by your surgeon. 6. Call your doctor if: - Your temperature exceeds 101.5 F - You experience excessive pain or swelling - You have an unexpected reaction to medication - You have excessive bleeding - You experience continued vomiting/nausea - Your incision begins to separate - Your incision shows signs of infection such as increased redness, swelling, excessive pain, heat, or drainage (light blood or clear fluid is normal) General instructions: No lifting greater than 10 lbs for the next 6 weeks[address] within 24 hours of taking narcotic pain medications. If you do not move your bowels in the next 2 days, please take milk of magnesia over the counter. Please follow the post op diet and do not advance your diet until you are seen in the office in about 2 weeks. Please walk around your home every hour or two to prevent blood clots from forming in your legs. You do not need to wake from sleeping to walk. Please sleep in a bed or couch to prevent kinking at the hips and knees. Please take your incentive spirometer (your lung adapted physical education specialist) home with you and use it for the next few days to prevent pneumonias. You may shower, no hot tubs, baths or swimming pools. Please call the office with any questions or concerns such as increasing abdominal pain, fever, chills, shortness of breath, chest pain, leg pain or swelling, or redness or drainage from your incisions. Please make sure you are consuming 40-60 ounces of total fluids per day. Avoid all carbonation. Do not hesitate to contact the office with any questions at . The patient's medical history has been reviewed and they are considered low risk for post op DVT and therefore DVT prophylaxis is not considered necessary. Travel after surgery was reviewed. The patient has not disclosed any travel plans during the first 30 days after surgery and they have been advised that within the first 30 days after surgery any bus, plane, train or car travel over 2 hours in duration is contraindicated due to the possibility of developing blood clots from immobility. Any travel, needs to include periods of ambulation of 10 minutes in duration every 2 hours.? The patient was instructed to discuss any plans for travel during this period with their bariatric surgeon. Assessment: s/p laparoscopic sleeve gastrectomy with gastropexy Discharge Date/Time: 01/04/24 09:53
[2024-01-03 10:50] LABS: Hematocrit 45.6 % (37.0-47.0)
[2024-01-03 11:05] LABS: Anion Gap 15 (12-20); Blood Urea Nitrogen 9 mg/dL (9-16); Calcium 9.3 mg/dL (8.4-10.2); Carbon Dioxide 24 mmol/L (22-29); Chloride 103 mmol/L (96-108); Creatinine Clr Calc Pharmacy 107.3; Estimated Glomerular Filt Rate > 60; Glucose Random 135 mg/dL (60-115); Potassium 3.7 mmol/L (3.3-5.1); Sodium 138 mmol/L (135-145)
[2024-01-03] MEDS: Haloperidol Lactate 5 MG/ML VIAL 1 MG IVPUSH (11:06)
[2024-01-03] MEDS: ceFAZolin Sodium/Dextrose,Iso 2 GM/50 ML PIGGYBACK IV (13:58)
[2024-01-03] MEDS: Lactated Ringers 1,000 ML 100 ML IVCONT ×2 (13:58→23:42)
[2024-01-03] MEDS: Acetaminophen 1,000 MG/100 ML PIGGYBACK 16.7 MG IV ×2 (14:41→19:52)
--- NOTE | 2024-01-03 15:09 | PHA.MEDREC ---
Pharmacy Consult ? Medication Reconciliation Pharmacy has completed the medication reconciliation. Spoke to patient and confirmed medication list. Patient only takes bupropion XL 300 mg, not taking 75 mg anymore.
[2024-01-03] MEDS: ondansetron HCL 4 MG/2 ML VIAL IVPUSH (15:43)
[2024-01-03] MEDS: Famotidine/PF 20 MG/2 ML VIAL IVPUSH (20:00)
[2024-01-04] MEDS: ondansetron HCL 4 MG/2 ML VIAL IVPUSH (01:25)
[2024-01-04] MEDS: Acetaminophen 1,000 MG/100 ML PIGGYBACK 16.7 MG IV (03:01)
[2024-01-04 03:02] VITALS: BP 156/71; PULSE 50; RESP 16; TEMP 36; O2SAT 95
[2024-01-04] MEDS: Levothyroxine Sodium 150 MCG TABLET PO (06:25)
[2024-01-04 06:27] LABS: MANUAL DIFF FLAG NO
[2024-01-04 06:44] LABS: Basophils Percent Auto 0.2 % (0-2); Hematocrit 36.4 % (37.0-47.0); Hemoglobin 12.3 g/dl (12.0-16.0); Imm Gran Abs Auto 0.05 X10*3/uL (0.00-0.03); Imm Gran Pct Auto 0.4 % (0.0-0.4); Lymphocytes Absolute Auto 1.7 X10*3/uL (1.2-4.9); Lymphocytes Percent Auto 13.6 % (20-40); Mean Corpuscular HGB Conc 33.8 g/dl (31.0-35.0); Mean Corpuscular Hemoglobin 31.5 pg (27.0-33.0); Mean Corpuscular Volume 93.3 fL (80.0-98.0); Mean Platelet Volume 8.7 fL (9.4-12.3); Monocytes Absolute Auto 0.8 X10*3/uL (0.1-1.2); Monocytes Percent Auto 6.7 % (2-11); Neutrophils Absolute Auto 9.7 x10*3/uL (2.0-8.3); Neutrophils Percent Auto 79.1 % (45-73); Platelet Count 275 X10*3/uL (160-400); Red Cell Distribution Width 12.8 % (11.0-16.0); White Blood Count 12.3 X10*3/uL (4.8-10.8)
[2024-01-04 06:52] LABS: Anion Gap 13 (12-20); Blood Urea Nitrogen 6 mg/dL (9-16); Calcium 8.2 mg/dL (8.4-10.2); Carbon Dioxide 21 mmol/L (22-29); Chloride 107 mmol/L (96-108); Estimated Glomerular Filt Rate > 60; Glucose Random 114 mg/dL (60-115); Potassium 3.9 mmol/L (3.3-5.1); Sodium 137 mmol/L (135-145)
[2024-01-04 07:37] VITALS: BP 171/77; PULSE 52; RESP 18; TEMP 36.6; O2SAT 97
[2024-01-04] MEDS: Famotidine/PF 20 MG/2 ML VIAL IVPUSH (07:54)
[2024-01-04] MEDS: buPROPion HCl XL 300 MG TAB.ER.24H PO ×2 (07:54→08:01)
--- NOTE | 2024-01-04 07:56 | HO.POSTANES ---
Post Anesthesia Evaluation Post Anesthesia Evaluation Date of Service: 01/04/24 Vital Signs: Vital Signs Temp Pulse Resp BP Pulse Ox O2 Del Method 01/04/24 07:37 97.8 F 52 18 171/77 H 97 Room Air 01/04/24 03:02 96.8 F 50 16 156/71 H 95 Room Air Anesthesia: General Endotracheal-GETA Mental Status: Awake Pain Control: Satisfactory Nausea/Vomiting: None Hydration: Adequate Anesthesia-Related Issues: No Anes. Related Issues
--- NOTE | 2024-01-04 09:24 | MHC.CM.PN ---
CM MET WITH PT AT BEDSIDE. PT LIVES WITH SPOUSE, INDEPENDENT AND EMPLOYED F/T. +HCP (COPY AT HOME) PCP DR. GUTHRIE. DP: PT HAS BEEN MEDICALLY CLEARED FOR DC HOME, NO SERVICES. SPOUSE WILL TRANSPORT
== END 2024-01-04 09:53 | disposition home or self-care (01) | DRG 403 ==
LOC: HO.SSSA 10:29 → HO.S3 13:09
PROVIDERS: Physician Assistant Surgical; Admitting Provider Surgery; PCP Nurse Practitioner Family; Visit Provider Surgery
PROC: 0DB64Z3 Excision of Stomach, Percutaneous Endoscopic Approach, Vertical (ICD-10-PCS; CPT 43845; principal; 2024-01-03 07:30)
DX: E66.01 Morbid (severe) obesity due to excess calories (principal); K76.0 Fatty (change of) liver, not elsewhere classified; F32.A Depression, unspecified; E03.9 Hypothyroidism, unspecified; G47.33 Obstructive sleep apnea (adult) (pediatric); K21.9 Gastro-esophageal reflux disease without esophagitis; F41.9 Anxiety disorder, unspecified; Z68.37 Body mass index [BMI] 37.0-37.9, adult; Z87.891 Personal history of nicotine dependence; Z79.890 Hormone replacement therapy; Z79.899 Other long term (current) drug therapy
CPT/HCPCS: 36415; 80048; 81025; 85014; 85018; 85025; 86850; 86900; 86901; 88304; 88305; 88307; 88342; A4649; C9088; C9145; J0131; J0690; J1100; J1170; J1630; J2250; J2405; J2704; J2795; J3010; J7120

== ENCOUNTER → 2024-01-03 05:54 | Outpatient (BNV) | payer BC, SELFPAY | PROVIDERS: Admitting Provider Surgery; PCP Nurse Practitioner Family; Visit Provider Surgery | DX: E66.01 Morbid (severe) obesity due to excess calories (principal); Z68.37 Body mass index [BMI] 37.0-37.9, adult; Z90.3 Acquired absence of stomach [part of]; Z98.84 Bariatric surgery status | CPT/HCPCS: 43659; 43775; 99024; 99499 ==

== ENCOUNTER 2024-01-10 13:30 | Outpatient (AMB) | payer BC, SELFPAY ==
[2024-01-10 13:39] VITALS: BP 141/76; PULSE 79; TEMP 36.3; O2SAT 100; BMI 35.4
--- NOTE | 2024-01-10 13:39 | MHC.OFFVISWM ---
VS Expanded 01/10/24 13:39 BP 141/76 H Blood Pressure Location Rt brachial Blood Pressure Position Sitting Pulse 79 Pulse Source Pulse Oximeter Temp 97.4 F Temperature Source Tympanic Pulse Oximetry 100 Oxygen Delivery Method Room Air Height 5 ft 4 in Weight 206 lb BMI 35.4 Body Fat % 42.6 Body Fat Mass 87.8 Fat Free Mass 118.2 Visceral Fat Rating 9.0 Body Water % 41.1 Body Water Mass 84.6 Muscle Mass/Score 112.2 Basal Metabolic Rate/Score 1,664 Intake Visit Reasons: (OV) PO LSG 01/03/24 Allergies avocado Allergy (Severe, Verified 01/10/24 13:41) Itching sertraline Allergy (Unknown, Verified 01/10/24 13:41) Rash HPI Comments Details: 33-year-old female returns to the office today in follow-up. She is 7 days status post sleeve gastrectomy performed on 01/03/2024. She is tolerating 3 celebrate 4 in 1 shakes with 1 scoop each in approximately 40-50 oz of fluids per day. She is moved her bowels and denies any significant pain. [facility] Medical History Hx of Hypothyroidism Sleep apnea Graves disease Depression Anxiety Surgical History (Updated 01/10/24 @ 13:42 by Yulia Mosher CMA) Hx of laparoscopic partial gastrectomy History of surgery History of wisdom tooth extraction History of sinus surgery Family History Father No family history of mental disorder Diabetes Mother No family history of mental disorder Breast cancer Daughter No problems noted. Daughter No problems noted. Son No problems noted. 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 Sexual orientation: Straight/Heterosexual Gender identity: Female Cognitive needs: No Hearing needs: No Vision needs: No Physical Exam Vital Signs: Last Vital Signs Temp 97.4 F 01/10/24 13:39 Pulse 79 01/10/24 13:39 BP 141/76 H 01/10/24 13:39 Pulse Ox 100 01/10/24 13:39 Oxygen Delivery Method Room Air 01/10/24 13:39 BMI result Body Mass Index 35.4 GI Inspection: Yes incision (Mild ecchymosis otherwise clean, dry, intact.) Assessment & Plan Assessment & Plan (1) S/P laparoscopic sleeve gastrectomy: Code(s): Z98.84 - Bariatric surgery status Category: Surgical Plan: POD 7 s/p LSG on 01/03/[address] Tineo Weight loss prior to surgery was 27.9 pounds or 13 % TBWL. Original weight on 07/14/2023 was 242.4 pounds and op weight was 214.5 pounds. Be sure to text Dr Tineo exactly 1 week after surgery your weight from your home scale so he can adjust your meal plan. Continue meal plan until f/u moshe Bear in 2 weeks May shower, no submersion in bath for another week Continue abdominal binder with activity and exercise for the next 2 weeks. Exercise prior to surgery was treadmill, may resume No abdominal exercises for 6 weeks post operatively Will be emailed link to post op video for review Reminded of the pace of drinking, 2 mL per minute, 1 oz/15 min.
== END 2024-01-10 14:06 | disposition home or self-care (01) ==
PROVIDERS: PCP Nurse Practitioner Family; Visit Provider Physician Assistant Surgical
DX: Z98.84 Bariatric surgery status (principal)
CPT/HCPCS: 99024

== ENCOUNTER → 2024-01-10 13:30 | Outpatient (BNVA) | payer BC, SELFPAY | PROVIDERS: PCP Nurse Practitioner Family; Visit Provider Physician Assistant Surgical ==

== ENCOUNTER 2024-01-26 13:06 | Outpatient (AMB) | payer BC, SELFPAY ==
--- NOTE | 2024-01-26 12:53 | MHC.OFFVISWM ---
VS Expanded 01/26/24 13:04 Height 5 ft 4 in Weight 199 lb 8 oz BMI 34.2 Intake Visit Reasons: (TV) PO LSG 01/03/24 Allergies avocado Allergy (Severe, Verified 01/10/24 13:41) Itching sertraline Allergy (Unknown, Verified 01/10/24 13:41) Rash Medication List - Last Reconciled 01/26/24 by ANDRES Solares bupropion HCl XL 300 mg PO DAILY fluticasone propionate 50 mcg/actuation 1 spray intranasal DAILY PRN hydroxyzine HCl 25 mg PO TID PRN levothyroxine (Synthroid) 150 mcg PO DAILY 30 days loratadine (Claritin) 10 mg PO DAILY pantoprazole 40 mg PO DAILY sucralfate 10 mL PO BID HPI Comments Details: This?is a?33?yo female who is s/p LSG 01/03/2024. Presents for 3 week post op visit. Was 206lbs at last visit 2 weeks ago; weight today 199.8lbs. No complaints of nausea, emesis, abdominal pain or reflux, or constipation. Present meal plan includes: 7-9am Celebrate 1 scoop 10am-12pm Celebrate 1 scoop 1-3pm bar 4-6pm Celebrate 1 scoop 7-9pm Celebrate 1 scoop Exercise routine includes: treadmill at the gym, 500 calories 4x/week [facility] Medical History (Updated 01/12/24 @ 00:01 by Background Daemon) BMI 38.0-38.9,adult Vaccine counseling Laboratory tests ordered as part of a complete physical exam (CPE) Encounter for weight management BMI 40.0-44.9, adult Vaginal itching Normal physical exam Hx of Hypothyroidism Sleep apnea Graves disease Depression Anxiety Surgical History (Updated 01/12/24 @ 00:01 by Background Daemon) Hx of laparoscopic partial gastrectomy History of surgery History of wisdom tooth extraction History of sinus surgery Family History Father No family history of mental disorder Diabetes Mother No family history of mental disorder Breast cancer Daughter No problems noted. Daughter No problems noted. Son No problems noted. 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 Sexual orientation: Straight/Heterosexual Gender identity: Female Cognitive needs: No Hearing needs: No Vision needs: No Telehealth Telehealth Telehealth Platform: Telephone Location of provider rendering services: practice address Location of patient: address on file Patient Identification confirmed using: Name, : Yes Telehealth method: voice only Patient verbally consented to treatment: Yes Patient verbally consented to billing insurance company: Yes Patient informed of any privacy concerns related to visit: Yes Minutes spent on Phone/Video with Pt.: 15 Assessment & Plan Assessment & Plan (1) S/P laparoscopic sleeve gastrectomy: Code(s): Z98.84 - Bariatric surgery status Category: Surgical (2) Obesity: Code(s): E66.9 - Obesity, unspecified Category: Medical Qualifiers: Obesity type: due to excess calories Obesity classification: adult class 2 (BMI 35 - 39.9) Serious obesity comorbidity presence: with serious comorbidity Body mass index: BMI 38.0-38.9 Qualified Code(s): E66.01 - Morbid (severe) obesity due to excess calories; Z68.38 - Body mass index [BMI] 38.0-38.9, adult Plan Pt will continue same meal plan given yesterday. Meeting exercise goal. Reviewed PPI and carafate dosing. RTC 2-3 weeks. Patient is obese and is not considered stable at this time. I spent a total of 30 minutes reviewing/updating records, examining the patient and counseling the patient on weight management as detailed above.
[2024-01-26 13:04] VITALS: BMI 34.2
== END 2024-01-26 13:15 | disposition home or self-care (01) ==
LOC: HO.HBS 13:06
PROVIDERS: PCP Nurse Practitioner Family; Visit Provider Physician Assistant Surgical
DX: E66.01 Morbid (severe) obesity due to excess calories (principal); Z68.34 Body mass index [BMI] 34.0-34.9, adult; Z90.3 Acquired absence of stomach [part of]; Z98.84 Bariatric surgery status
CPT/HCPCS: 99024

== ENCOUNTER → 2024-01-26 13:06 | Outpatient (BNVA) | payer BC, SELFPAY | PROVIDERS: PCP Nurse Practitioner Family; Visit Provider Physician Assistant Surgical ==

== ENCOUNTER 2024-02-22 08:12 | Outpatient (REF) | payer BC, SELFPAY ==
[2024-02-22 09:16] LABS: Cholesterol 183 mg/dL (<200); HDL Cholesterol 39 mg/dL (>40); LDL Cholesterol Calculated 126 mg/dL (<100); Triglycerides 92 mg/dL (<150)
[2024-02-22 09:36] LABS: TSH reflex Free T4 43.88 uIU/mL (0.32-4.0)
[2024-02-22 10:37] LABS: Free T4 (Free Thyroxine) 0.54 ng/dL (0.71-1.85)
== END 2024-02-22 08:13 | disposition home or self-care (01) ==
LOC: HO.LAB 08:12
PROVIDERS: PCP Nurse Practitioner Family; Visit Provider Nurse Practitioner Family
DX: E03.9 Hypothyroidism, unspecified (principal); E78.00 Pure hypercholesterolemia, unspecified
CPT/HCPCS: 36415; 80061; 84439; 84443

== ENCOUNTER 2024-02-23 15:09 | Outpatient (AMB) | payer BC, SELFPAY ==
--- NOTE | 2024-02-23 15:02 | A.OFFVIS_ITS ---
VS Expanded 02/23/24 15:09 Height 5 ft 4 in Weight 187 lb 4 oz BMI 32.1 Intake Visit Reasons: telephone PO LSG 01/03/24 Allergies avocado Allergy (Severe, Verified 01/10/24 13:41) Itching sertraline Allergy (Unknown, Verified 01/10/24 13:41) Rash Medication List - Last Reconciled 02/23/24 by ANDRES Solares bupropion HCl XL 300 mg PO DAILY docusate sodium (Colace) 100 mg PO DAILY fluticasone propionate 50 mcg/actuation 1 spray intranasal DAILY PRN hydroxyzine HCl 25 mg PO TID PRN levothyroxine (Synthroid) 175 mcg PO DAILY 30 days loratadine (Claritin) 10 mg PO DAILY pantoprazole 40 mg PO DAILY sucralfate 10 mL PO BID HPI Comments Details: This?is a?33?yo female who is s/p LSG 01/03/2024. Presents for 7 week post op visit. Was 199.5lbs at last visit 01/26/2024; weight today 199.8lbs. No complaints of nausea, emesis, abdominal pain or reflux. Was having an unse ttled feeling later at night so last shake was removed and extra scoop added to 4pm shake. Had labs done yesterday and TSH was abnormally high. Taking Colace for constipation, tried MoM and Metamucil also. Present meal plan includes: 7-9am Celebrate 1 scoop 10am-12pm Celebrate 1 scoop 1-3pm bar 4-6pm Celebrate 2 scoop Exercise routine includes: treadmill at the gym, 500 calories 4x/week was told to increase to 5x week for 2500 serg/week [facility] Medical History (Updated 01/30/24 @ 16:20 by Samuel Tineo MD) BMI 38.0-38.9,adult Vaccine counseling Laboratory tests ordered as part of a complete physical exam (CPE) Encounter for weight management BMI 40.0-44.9, adult Vaginal itching Normal physical exam Hx of Hypothyroidism Sleep apnea Graves disease Depression Anxiety Surgical History (Updated 01/12/24 @ 00:01 by Martin Chun) Hx of laparoscopic partial gastrectomy History of surgery History of wisdom tooth extraction History of sinus surgery Family History Father No family history of mental disorder Diabetes Mother No family history of mental disorder Breast cancer Daughter No problems noted. Daughter No problems noted. Son No problems noted. 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 Sexual orientation: Straight/Heterosexual Gender identity: Female Cognitive needs: No Hearing needs: No Vision needs: No Telehealth Telehealth Telehealth Platform: Telephone Location of provider rendering services: other Location of patient: address on file Patient Identification confirmed using: Name, : Yes Telehealth method: voice only Patient verbally consented to treatment: Yes Patient verbally consented to billing insurance company: Yes Patient informed of any privacy concerns related to visit: Yes Minutes spent on Phone/Video with Pt.: 15 Assessment & Plan Assessment & Plan (1) S/P laparoscopic sleeve gastrectomy: Code(s): Z98.84 - Bariatric surgery status Category: Medical (2) Obesity: Code(s): E66.9 - Obesity, unspecified Category: Medical Qualifiers: Obesity type: due to excess calories Obesity classification: adult class 2 (BMI 35 - 39.9) Serious obesity comorbidity presence: with serious comorbidity Body mass index: BMI 38.0-38.9 Qualified Code(s): E66.01 - Morbid (severe) obesity due to excess calories; Z68.38 - Body mass index [BMI] 38.0- 38.9, adult Plan Pt cleared for all activity, no restrictions. Continue same meal plan as given per Dr. Santana, with change of shake timing. Pt plans to increase exercise to 2500 serg/week. Continue PPI and carafate. Fiber rx sent to pharmacy. RTC 4-6 weeks. Patient is obese and is not considered stable at this time. I spent a total of 30 minutes reviewing/updating records, examining the patient and counseling the patient on weight management as detailed above. Medications: New inulin 2 grams PO DAILY 90 tabs 3RF Discontinued levothyroxine (Synthroid) Discontinued Reason: Doctor's Order 150 mcg PO DAILY 30 days 30 tabs 2RF
[2024-02-23 15:09] VITALS: BMI 32.1
== END 2024-02-23 15:25 | disposition home or self-care (01) ==
LOC: HO.HBS 15:09
PROVIDERS: PCP Nurse Practitioner Family; Visit Provider Physician Assistant Surgical
DX: E66.01 Morbid (severe) obesity due to excess calories (principal); Z68.32 Body mass index [BMI] 32.0-32.9, adult; Z90.3 Acquired absence of stomach [part of]; Z98.84 Bariatric surgery status
CPT/HCPCS: 99024

== ENCOUNTER → 2024-02-23 15:09 | Outpatient (BNVA) | payer BC, SELFPAY | PROVIDERS: PCP Nurse Practitioner Family; Visit Provider Physician Assistant Surgical ==

== ENCOUNTER 2024-02-28 07:54 | Outpatient (AMB) | payer BC, SELFPAY ==
--- NOTE | 2024-02-28 08:05 | A.OFFPC_ITS ---
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 Accompanied by: Self / Same As Patient Allergies avocado Allergy (Severe, Verified 02/28/24 08:18) Itching sertraline Allergy (Unknown, Verified 02/28/24 08:18) Rash Medication List - Last Reconciled 02/28/24 by Migue Sanderson CNP bupropion HCl XL 300 mg PO DAILY docusate sodium (Colace) 100 mg PO DAILY fluticasone propionate 50 mcg/actuation 1 spray intranasal DAILY PRN hydroxyzine HCl 25 mg PO TID PRN inulin 2 grams PO DAILY levothyroxine (Synthroid) 175 mcg PO DAILY 30 days loratadine (Claritin) 10 mg PO DAILY pantoprazole 40 mg PO DAILY sucralfate 10 mL PO BID Tobacco use date assessed: 02/28/24 Dental Screening Dental Screen Date: 11/29/23 HPI HPI Comments History of Present Illness Details 33-year-old female presents for hypercho lesterolemia and hypothyroidism follow-up She admits to taking her medications as prescribed without adverse reactions She admits to making healthy dietary changes and exercising routinely She offers no complaints and denies acute symptoms at this time [facility] Medical History (Updated 01/30/24 @ 16:20 by Samuel Tineo MD) BMI 38.0-38.9,adult Vaccine counseling Laboratory tests ordered as part of a complete physical exam (CPE) Encounter for weight management BMI 40.0-44.9, adult Vaginal itching Normal physical exam Hx of Hypothyroidism Sleep apnea Graves disease Depression Anxiety Surgical History (Updated 01/12/24 @ 00:01 by Martin Chun) Hx of laparoscopic partial gastrectomy History of surgery History of wisdom tooth extraction History of sinus surgery Family History Father No family history of mental disorder Diabetes Mother No family history of mental disorder Breast cancer Daughter No problems noted. Daughter No problems noted. Son No problems noted. 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 1. Little interest or pleasure in doing things: several days 2. Feeling down, depressed, or hopeless: several days 3. Trouble falling or staying asleep, or sleeping too much: several days 4. Feeling tired or having little energy: more than half the days 5. Poor appetite or overeating: not at all 6. Feeling bad about yourself - or that you are a failure or have let yourself or your family down: not at all 7. Trouble concentrating on things, such as reading the newspaper or watching television: several days 8. Moving or speaking so slowly that other people could have noticed. Or the opposite - being so fidgety or restless that you have been moving around a lot more than usual: not at all 9. Thoughts that you would be better off or of hurting yourself in some way: not at all Total score: 6 Depression Screening Interpretation: Positive Depression Screening Done: Yes 63116 - PHQ-9 Billing: Yes Source: Developed by Drs. Tj Sr, Gabbi Andrea, Rafa Ellis and colleagues, with an educational chen from [employer]. Thrive Questionnaire Date Thrive assessed: 11/29/23 FEROZ-7 AMB Questionnaire FEROZ-7 Date FEROZ - 7 assessed: 02/28/24 Feeling nervous, anxious, or on edge: 0 = Not at all Not being able to stop or control worryin = Not at all Worrying too much about different things: 0 = Not at all Trouble relaxin = Several days Being so restless that it is hard to sit still: 0 = Not at all Becoming easily annoyed or irritable: 2 = More than half the days Feeling afraid as if something awful might happen: 0 = Not at all Total FEROZ-7 score (0-4 normal; 5-9 mild; 10-14 moderate; 15-21 severe): 3 Source: Developed by Drs. Tj Sr, Gabbi Andrea, Rafa Ellis and colleagues, with an educational chen from [employer]. FEROZ-7 Assessment Billing FEROZ-7 Assessment Tool: FEROZ-7 Assessment 64878 Review of Systems Const Details: Const Denies chills, Denies fatigue, Denies fever(s), Denies headache(s) and Denies weakness ENT Denies dizziness and Denies headache(s) Card Denies chest pain, Denies lightheadedness, Denies dyspnea and Denies other (Palpitations) Resp Denies cough, Denies dyspnea, Denies wheezing and Denies other ( shortness of breath) GI Denies abdominal pain, Denies melena, Denies hematochezia, Denies change in bowel habits, Denies dyspepsia and Denies nausea Denies hematuria and Denies dysuria Musc Denies abnormal gait, Denies myalgias, Denies arthralgias, Denies numbness and Denies tingling Skin/Breast Denies rash, Denies unusual bruising and Denies wounds Neuro Denies abnormal gait, Denies dizziness, Denies headache(s), Denies memory loss, Denies numbness, Denies Sensory deficit (Neuro), Denies tingling and Denies weakness Psych Denies anxiety, Denies depression, Denies memory loss Endo Denies cold intolerance, Denies fatigue, Denies heat intolerance, Denies polydipsia and Denies polyuria Aller/Immun Denies wheezing Physical exam (Primary Care) Vital Signs: Last Vital Signs Temp 97.6 F 02/28/24 08:06 Pulse 86 02/28/24 08:06 Resp 14 02/28/24 08:06 BP 126/80 02/28/24 08:06 Pulse Ox 99 02/28/24 08:06 Oxygen Delivery Method Room Air 02/28/24 08:06 BMI result Body Mass Index 32.2 Tobacco/Smoking Status: Tobacco use Status Tobacco use date assessed 10/11/23 02/28/24 08:10 Patient Tobacco Use Status Former Tobacco user 02/28/24 08:10 e-Cigarette/Vaping Use Never Used 02/28/24 08:10 Depression Screening Interpretation: Positive Thrive Assessment: Date of Thrive Assessment Date Thrive assessed 11/29/23 02/28/24 08:10 Const Other: General: no acute distress and well developed Nutritional Appearance: well nourished Orientation/consciousness: patient oriented x3 HENMT Head: Yes normocephalic and Yes atraumatic Eyes General: appearance normal, both eyes and all related structures Pupils: Equal, round and reactive pupils present EOM: EOMs intact bilaterally Resp Effort & Inspection: normal respiratory effort Auscultation: clear to auscultation bilaterally Cardio Rate: regular rate Rhythm: regular rhythm Heart sounds: S1 normal heart sound present, S2 normal heart sound present, no gallops, no murmurs and no rubs GI Palpation (GI): No Abdominal aortic bruit present, Soft to palpation, nontender, No hepatosplenomegaly present and No Rebound tenderness present Auscultation: normal bowel sounds General: Yes no CVA tenderness Back/Spine/Pelvis Back: no CVA tenderness Cervical Spine: cervical ROM normal and No Cervical spine tenderness Thoracic/Lumbar Spine: thoraco-lumbar ROM normal, No pain with thoraco-lumbar ROM, No thoracic spinal tenderness and No lumbar spinal tenderness Extrem General: Yes normal to inspection, No edema and No calf tenderness Skin General: warm and dry. Normal skin color. Normal skin turgor Neuro General: patient oriented x3, gait normal and no focal neuro deficit Cranial nerves: Yes Equal, round and reactive pupils present Cognition (Neuro): normal cognition Gait exam (Neuro): Normal gait present Sensory Exam: No Sensory deficit (Neuro) Psych Appearance: grossly normal Affect: normal affect Attitude: cooperative Thought process: Normal thought process present Assessment and Plan Assessment & Plan (1) Hypercholesterolemia: Code(s): E78.00 - Pure hypercholesterolemia, unspecified Plan: Recent total cholesterol and LDL levels have normalized to 183 and 126 respectively. HDL is slightly low, 39 Advised to limit foods high in saturated fat and avoid foods high in trans fat Routine exercise encouraged Will continue to monitor Verbalized understanding and agreed with the treatment plan (2) Hypothyroidism: Code(s): E03.9 - Hypothyroidism, unspecified Plan: Recent TSH is was elevated, 43.88, T4 was low, 0.54. Synthroid was increased to 175 mcg daily, from 150 mcg daily. She admits to taking medication as prescribed/instructed Continue current treatment regimen Will recheck TSH/T4. Advised to get blood work done a few days before her next visit Follow-up in 6 weeks or sooner with symptoms or concerns Verbalized understanding and agreed with the treatment plan Orders: Orders TSH reflex Free T4 6 Weeks E03.9 - Hypothyroidism, unspecified Coding Level of Care Code Est Pt Level 4 (05577) Complex EM visit Add On G2211 Diagnoses Hypercholesterolemia E78.00 Hypothyroidism E03.9 Additional Codes FEROZ-7 Assessment Billing - FEROZ-7 Assessment Tool: FEROZ-7 Assessment 61938 ([id number])
[2024-02-28 08:06] VITALS: BP 126/80; PULSE 86; RESP 14; TEMP 36.4; O2SAT 99; BMI 32.2
== END 2024-02-28 08:25 | disposition home or self-care (01) ==
PROVIDERS: PCP Nurse Practitioner Family; Visit Provider Nurse Practitioner Family
DX: E78.00 Pure hypercholesterolemia, unspecified (principal); E03.9 Hypothyroidism, unspecified
CPT/HCPCS: 99214

== ENCOUNTER 2024-04-10 08:45 | Outpatient (AMB) | payer BC, SELFPAY ==
--- NOTE | 2024-04-10 08:47 | MHC.PC.OV ---
Vital Signs 04/10/24 08:57 Height 5 ft 4 in Weight 166 lb BMI 28.5 BP 120/72 Blood Pressure Location Rt brachial Position Sitting Respiration 16 Pulse 80 Pulse Source Pulse Oximeter Temp 98.0 F Temp Source Oral Pulse Oximetry (%) 98 Oxygen Delivery Method Room Air Intake Visit Reasons: follow up/thyroid Intake Note: patient here for thyroid follow up. 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 Is last menstrual period known: Yes Last menstrual period: 04/06/24 Post menopausal: No Patient : No Allergies avocado Allergy (Severe, Verified 04/10/24 08:52) Itching sertraline Allergy (Unknown, Verified 04/10/24 08:52) Rash Tobacco use date assessed: 04/10/24 Dental Screening Dental Screen Date: 04/10/24 Did you have a dental visit in the last 12 months?: Yes Did you have a dental problem in the last 6 months where you did not have access to dental care?: No Was dental information given to patient?: Patient has dentist HPI HPI Comments History of Present Illness Details 33-year-old female presents for hypothyroidism follow-up. Early last month, her TSH was elevated, 43.88, and T4 was low, 0.54. 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 She has been taking the medication as prescribed for the past 2 weeks. She states that she has a follow-up with Dr. Carey in 2 months. Upon review, she has no follow-up appointment scheduled with Dr. Carey. She did not get TSH/T4 blood work done as planned. She offers no complaints and denies acute symptoms at this time. [facility] Medical History BMI 38.0-38.9,adult Vaccine counseling Laboratory tests ordered as part of a complete physical exam (CPE) Encounter for weight management BMI 40.0-44.9, adult Vaginal itching Normal physical exam Hx of Hypothyroidism Sleep apnea Graves disease Depression Anxiety Surgical History Hx of laparoscopic partial gastrectomy History of surgery History of wisdom tooth extraction History of sinus surgery Family History Father No family history of mental disorder Diabetes Mother No family history of mental disorder Breast cancer Daughter No problems noted. Daughter No problems noted. Son No problems noted. 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 How often do you have a drink containing alcohol?: Monthly or less 2. How many drinks containing alcohol do you have on a typical day when you are drinking?: 1 or 2 3. How often do you have six or more drinks on one occasion?: Monthly Total Score: 3 Score Reviewed/Action Taken: Yes FEROZ-7 AMB Questionnaire FEROZ-7 Date FEROZ - 7 assessed: 02/28/24 Source: Developed by Drs. Tj Sr, Gabbi Andrea, Rafa Ellis and colleagues, with an educational chen from [employer]. Review of Systems Const Details: Const Denies chills, Denies fatigue, Denies fever(s), Denies headache(s) and Denies weakness ENT Denies dizziness and Denies headache(s) Card Denies chest pain, Denies lightheadedness, Denies dyspnea and Denies other (Palpitations) Resp Denies cough, Denies dyspnea, Denies wheezing and Denies other ( shortness of breath) GI Denies abdominal pain, Denies melena, Denies hematochezia, Denies change in bowel habits, Denies dyspepsia and Denies nausea Denies hematuria and Denies dysuria Musc Denies abnormal gait, Denies myalgias, Denies arthralgias, Denies numbness and Denies tingling Skin/Breast Denies rash, Denies unusual bruising and Denies wounds Neuro Denies abnormal gait, Denies dizziness, Denies headache(s), Denies memory loss, Denies numbness, Denies Sensory deficit (Neuro), Denies tingling and Denies weakness Psych Denies anxiety, Denies depression, Denies memory loss Endo Denies cold intolerance, Denies fatigue, Denies heat intolerance, Denies polydipsia and Denies polyuria Aller/Immun Denies wheezing Physical exam (Primary Care) Vital Signs: Last Vital Signs Temp 98.0 F 04/10/24 08:57 Pulse 80 04/10/24 08:57 Resp 16 04/10/24 08:57 BP 120/72 04/10/24 08:57 Pulse Ox 98 04/10/24 08:57 Oxygen Delivery Method Room Air 04/10/24 08:57 BMI result Body Mass Index 28.5 Tobacco/Smoking Status: Tobacco use Status Tobacco use date assessed 04/10/24 04/10/24 08:59 Patient Tobacco Use Status Former Tobacco user 04/10/24 08:51 e-Cigarette/Vaping Use Never Used 04/10/24 08:51 Thrive Assessment: Date of Thrive Assessment Date Thrive assessed 11/29/23 04/10/24 08:51 Const Other: General: no acute distress and well developed Nutritional Appearance: well nourished Orientation/consciousness: patient oriented x3 HENMT Head: Yes normocephalic and Yes atraumatic Eyes General: appearance normal, both eyes and all related structures Pupils: Equal, round and reactive pupils present EOM: EOMs intact bilaterally Resp Effort & Inspection: normal respiratory effort Auscultation: clear to auscultation bilaterally Cardio Rate: regular rate Rhythm: regular rhythm Heart sounds: S1 normal heart sound present, S2 normal heart sound present, no gallops, no murmurs and no rubs GI Palpation (GI): No Abdominal aortic bruit present, Soft to palpation, nontender, No hepatosplenomegaly present and No Rebound tenderness present Auscultation: normal bowel sounds General: Yes no CVA tenderness Back/Spine/Pelvis Back: no CVA tenderness Cervical Spine: cervical ROM normal and No Cervical spine tenderness Thoracic/Lumbar Spine: thoraco-lumbar ROM normal, No pain with thoraco-lumbar ROM, No thoracic spinal tenderness and No lumbar spinal tenderness Extrem General: Yes normal to inspection, No edema and No calf tenderness Skin General: warm and dry. Normal skin color. Normal skin turgor Neuro General: patient oriented x3, gait normal and no focal neuro deficit Cranial nerves: Yes Equal, round and reactive pupils present Cognition (Neuro): normal cognition Gait exam (Neuro): Normal gait present Sensory Exam: No Sensory deficit (Neuro) Psych Appearance: grossly normal Affect: normal affect Attitude: cooperative Thought process: Normal thought process present Assessment and Plan Assessment & Plan (1) Hypothyroidism: Code(s): E03.9 - Hypothyroidism, unspecified Plan: Early last month, her TSH was elevated, 43.88, and T4 was low, 0.54 Continue current treatment regimen Encouraged to get blood work done today. Will review results and make changes as needed Advised to schedule an appointment with Dr. Carey as planned Verbalized understanding and agreed with the treatment plan Coding Level of Care Code Est Pt Level 3 (78251) Diagnoses Hypothyroidism E03.9
[2024-04-10 08:57] VITALS: BP 120/72; PULSE 80; RESP 16; TEMP 36.7; O2SAT 98; BMI 28.5
== END 2024-04-10 09:26 | disposition home or self-care (01) ==
PROVIDERS: PCP Nurse Practitioner Family; Visit Provider Nurse Practitioner Family
DX: E03.9 Hypothyroidism, unspecified (principal)
CPT/HCPCS: 99213

== ENCOUNTER 2024-04-10 09:41 | Outpatient (REF) | payer BC, SELFPAY ==
[2024-04-10 12:05] LABS: Free T4 (Free Thyroxine) 1.85 ng/dL (0.71-1.85)
[2024-04-10 12:11] LABS: TSH reflex Free T4 0.13 uIU/mL (0.32-4.0)
== END 2024-04-10 09:42 | disposition home or self-care (01) ==
LOC: HO.WFDLDS 09:41
PROVIDERS: Internal Medicine Endocrinology, Diabetes & Metabolism; Visit Provider Nurse Practitioner Family
DX: E03.9 Hypothyroidism, unspecified (principal)
CPT/HCPCS: 36415; 84439; 84443

== ENCOUNTER 2024-04-24 15:17 | Outpatient (AMB) | payer BC, SELFPAY ==
--- NOTE | 2024-04-24 14:59 | MHC.OFFVISWM ---
VS Expanded 04/24/24 15:14 Height 5 ft 4 in Weight 161 lb BMI 27.6 Intake Visit Reasons: TELEPHONE PO LSG 01/03/24 Allergies avocado Allergy (Severe, Verified 04/10/24 08:52) Itching sertraline Allergy (Unknown, Verified 04/10/24 08:52) Rash Medication List - Last Reconciled 04/24/24 by ANDRES Solares bupropion HCl XL 300 mg PO DAILY docusate sodium (Colace) 100 mg PO DAILY fluticasone propionate 50 mcg/actuation 1 spray intranasal DAILY PRN hydroxyzine HCl 25 mg PO TID PRN levothyroxine 175 mcg PO DAILY 30 days loratadine (Claritin) 10 mg PO DAILY HPI Comments Details: This?is a?33?yo female who is s/p LSG 01/03/2024. Presents for 3.5 month post op visit. Weight at last visit on 02/23/2024 was 187.4 pounds with a BMI of 32.1, weight today is 161 pounds, representing a 26.4 pound weight loss with a BMI today of 27.6.? No complaints of nausea, emesis, abdominal pain or reflux, or constipation. Recently had thyroid med dose adjusted by PCP, planning to follow up with Dr. Carey. Reports occasional dizzy spells with positional changes, checks her BP at home which is always ok. Present meal plan includes: 7-9am Premier 1 scoop 10am-12pm Premier 1 scoop 1-3pm Pure bar 4-6pm Premier 1/2 scoop 7pm 5 forks protein, 5 forks veg takes MVI Exercise routine includes: treadmill at the gym 65min, 500-670 calories 5x week for [id number] serg/week Pt reports issues of excess skin of abdomen. Has started experiencing a rash around belly button. Has tried rubbing alcohol and topical antifungal, has tried to keep clean and dry. Pt has started wearing pants with compressive/high waisted waistband to help hold excess skin in place to try to prevent discomfort. [facility] Medical History BMI 38.0-38.9,adult Vaccine counseling Laboratory tests ordered as part of a complete physical exam (CPE) Encounter for weight management BMI 40.0-44.9, adult Vaginal itching Normal physical exam Hx of Hypothyroidism Sleep apnea Graves disease Depression Anxiety Surgical History Hx of laparoscopic partial gastrectomy History of surgery History of wisdom tooth extraction History of sinus surgery Family History Father No family history of mental disorder Diabetes Mother No family history of mental disorder Breast cancer Daughter No problems noted. Daughter No problems noted. Son No problems noted. 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 Sexual orientation: Straight/Heterosexual Gender identity: Female Cognitive needs: No Hearing needs: No Vision needs: No Telehealth Telehealth Telehealth Platform: Telephone Location of provider rendering services: practice address Location of patient: address on file Patient Identification confirmed using: Name, : Yes Telehealth method: voice only Patient verbally consented to treatment: Yes Patient verbally consented to billing insurance company: Yes Patient informed of any privacy concerns related to visit: Yes Minutes spent on Phone/Video with Pt.: 15 Assessment & Plan Assessment & Plan (1) S/P laparoscopic sleeve gastrectomy: Code(s): Z98.84 - Bariatric surgery status Category: Surgical (2) Overweight: Code(s): E66.3 - Overweight Category: Medical Plan Discussed episodes of dizziness, unlikely cardiac, will order lab work CBC/CMP/vitamin levels. If persists or pt has syncopal episode will order EKG. Continue meal plan per Dr. Santana, has adequate exercise regimen, overall doing very well with weight loss. Clotrimazole ointment ordered for rashes of excess skin of abdomen. RTC 6 weeks. I spent a total of 30 minutes reviewing/updating records, examining the patient and counseling the patient on weight management as detailed above. Orders: Orders Complete Blood Count Auto Diff Today R42 - Dizziness and giddiness Vitamin B1 Today R42 - Dizziness and giddiness Vitamin B12 and Folate Today R42 - Dizziness and giddiness Vitamin D 25-OH Total Today R42 - Dizziness and giddiness Comprehensive Met. Panel Today R42 - Dizziness and giddiness Zinc Today R42 - Dizziness and giddiness Vitamin A Today R42 - Dizziness and giddiness Medications: New clotrimazole 1% 1 appl topical BID 45 grams 3RF
[2024-04-24 15:14] VITALS: BMI 27.6
== END 2024-04-24 15:34 | disposition home or self-care (01) ==
LOC: HO.HBS 15:17
PROVIDERS: PCP Nurse Practitioner Family; Visit Provider Physician Assistant Surgical
DX: E66.3 Overweight (principal); Z68.27 Body mass index [BMI] 27.0-27.9, adult; Z90.3 Acquired absence of stomach [part of]; Z98.84 Bariatric surgery status
CPT/HCPCS: 99214

== ENCOUNTER → 2024-04-24 15:17 | Outpatient (BNVA) | payer BC, SELFPAY | PROVIDERS: PCP Nurse Practitioner Family; Visit Provider Physician Assistant Surgical ==

== ENCOUNTER 2024-05-04 08:29 | Outpatient (REF) | payer BC, SELFPAY ==
[2024-05-04 08:45] LABS: MANUAL DIFF FLAG NO
[2024-05-04 08:54] LABS: Basophils Percent Auto 0.2 % (0-2); Eosinophils Absolute Auto 0.1 X10*3/uL (0.0-0.4); Hematocrit 40.5 % (37.0-47.0); Lymphocytes Absolute Auto 1.4 X10*3/uL (1.2-4.9); Lymphocytes Percent Auto 31.3 % (20-40); Mean Corpuscular HGB Conc 34.6 g/dl (31.0-35.0); Mean Corpuscular Hemoglobin 32.5 pg (27.0-33.0); Mean Platelet Volume 8.5 fL (9.4-12.3); Monocytes Absolute Auto 0.3 X10*3/uL (0.1-1.2); Monocytes Percent Auto 7.8 % (2-11); Neutrophils Absolute Auto 2.5 x10*3/uL (2.0-8.3); Neutrophils Percent Auto 57.7 % (45-73); Platelet Count 260 X10*3/uL (160-400); Red Blood Count 4.31 X10*6/uL (4.20-5.50); Red Cell Distribution Width 12.8 % (11.0-16.0); White Blood Count 4.4 X10*3/uL (4.8-10.8)
[2024-05-04 09:59] LABS: Alanine Aminotransferase 17 U/L (0-31); Alkaline Phosphatase 85 U/L (39-117); Anion Gap 10 (12-20); Aspartate Amino Transferase 20 U/L (5-31); Bilirubin Total 0.7 mg/dL (0.0-1.0); Blood Urea Nitrogen 13 mg/dL (9-16); Calcium 9.4 mg/dL (8.4-10.2); Carbon Dioxide 27 mmol/L (22-29); Chloride 107 mmol/L (96-108); Estimated Glomerular Filt Rate > 60; Glucose Random 93 mg/dL (60-115); Potassium 3.7 mmol/L (3.3-5.1); Sodium 140 mmol/L (135-145); Total Protein 7.1 g/dL (6.5-8.0)
[2024-05-04 10:15] LABS: Vitamin D 25-OH Total 83.3 ng/mL (>30)
[2024-05-04 10:25] LABS: Folate 10.1 ng/mL (> or = 4.0); Vitamin B12 1073 pg/mL (200-900)
[2024-05-09 00:54] LABS: Zinc 98 mcg/dL (60-130)
[2024-05-10 20:04] LABS: Vitamin A 29 mcg/dL (38-98)
[2024-05-12 13:53] LABS: Vitamin B1 10 nmol/L (8-30)
== END 2024-05-04 08:30 | disposition home or self-care (01) ==
LOC: HO.LAB 08:29
PROVIDERS: PCP Nurse Practitioner Family; Visit Provider Physician Assistant Surgical
DX: R42 Dizziness and giddiness (principal)
CPT/HCPCS: 36415; 80053; 82306; 82607; 82746; 84425; 84590; 84630; 85025

== ENCOUNTER 2024-06-12 11:41 | Outpatient (AMB) | payer BC, SELFPAY ==
--- NOTE | 2024-06-12 11:31 | MHC.OFFVISWM ---
VS Expanded 06/12/24 11:37 Height 5 ft 4 in Weight 148 lb BMI 25.4 Intake Visit Reasons: TELEPHONE PO LSG 01/03/24 Allergies avocado Allergy (Severe, Verified 04/10/24 08:52) Itching sertraline Allergy (Unknown, Verified 04/10/24 08:52) Rash Medication List - Last Reconciled 06/12/24 by ANDRES Solares bupropion HCl XL 300 mg PO DAILY clotrimazole 1% 1 appl topical BID docusate sodium (Colace) 100 mg PO DAILY fluticasone propionate 50 mcg/actuation 1 spray intranasal DAILY PRN hydroxyzine HCl 25 mg PO TID PRN levothyroxine 175 mcg PO DAILY 30 days loratadine (Claritin) 10 mg PO DAILY vitamin A palmitate 10,000 units PO DAILY HPI Comments Details: This?is a?33?yo female who is s/p LSG 01/03/2024. Presents for 5 month post op visit. Weight at last visit on 04/24/2024 was 161 pounds with a BMI of 27.6, weight today is 148 pounds, representing a 13 pound weight loss with a BMI today of 25.4.? No complaints of nausea, emesis, abdominal pain or reflux, or constipation. At last appt pt reported dizziness, checked labs, low in vit A so supplemented. Episodes have decreased, rarer now. Present meal plan includes: using [employer] liudmila for the last 2 weeks- chose more aggressive plan 3 shakes with half scoop 1.5 bar sometimes with the option to add a meal takes MVI Exercise routine includes: treadmill at the gym 65min, 500-670 calories 5x week for [id number] serg/week Pt reports issues of excess skin of abdomen. Has started experiencing a rash around belly button. Has tried rubbing alcohol and topical antifungal, has tried to keep clean and dry. Has also tried KT tape to keep skin elevated but this has not helped. Pt has started wearing pants with compressive/high waisted waistband to help hold excess skin in place to try to prevent discomfort. Also reports excess skin of thighs, increasing chafing and irritation. Excess skin gets in the way of typical daily activities like bending down, skin gets pinched. Also reports excess skin of upper arms, increasing chafing and irritation. Excess skin gets in the way of typical daily activities, like walking when arms swing and rub against the torso. [facility] Medical History BMI 38.0-38.9,adult Vaccine counseling Laboratory tests ordered as part of a complete physical exam (CPE) Encounter for weight management BMI 40.0-44.9, adult Vaginal itching Normal physical exam Hx of Hypothyroidism Sleep apnea Graves disease Depression Anxiety Surgical History Hx of laparoscopic partial gastrectomy History of surgery History of wisdom tooth extraction History of sinus surgery Family History Father No family history of mental disorder Diabetes Mother No family history of mental disorder Breast cancer Daughter No problems noted. Daughter No problems noted. Son No problems noted. 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 Sexual orientation: Straight/Heterosexual Gender identity: Female Cognitive needs: No Hearing needs: No Vision needs: No Telehealth Telehealth Telehealth Platform: Telephone Location of provider rendering services: other Location of patient: address on file Patient Identification confirmed using: Name, : Yes Telehealth method: voice only Patient verbally consented to treatment: Yes Patient verbally consented to billing insurance company: Yes Patient informed of any privacy concerns related to visit: Yes Minutes spent on Phone/Video with Pt.: 16 Assessment & Plan Assessment & Plan (1) Overweight: Code(s): E66.3 - Overweight Category: Medical (2) S/P laparoscopic sleeve gastrectomy: Code(s): Z98.84 - Bariatric surgery status Category: Surgical (3) Excess skin: Code(s): L98.7 - Excessive and redundant skin and subcutaneous tissue Category: Medical Plan Continue meal plan per Dr Brice Encouraged pt to start resistance training. Continue vit A supplement, will recheck levels after next visit. Clotrimazole ointment for rashes of excess skin. Pt may be eligible for skin removal surgery prior to 1 year based on insurance. RTC 6 weeks, pt would like in person visit to check body composition. I spent a total of 30 minutes reviewing/updating records, examining the patient and counseling the patient on weight management as detailed above.
[2024-06-12 11:37] VITALS: BMI 25.4
== END 2024-06-12 12:01 | disposition home or self-care (01) ==
LOC: HO.HBS 11:41
PROVIDERS: PCP Nurse Practitioner Family; Visit Provider Physician Assistant Surgical
DX: E66.3 Overweight (principal); Z68.25 Body mass index [BMI] 25.0-25.9, adult; Z98.84 Bariatric surgery status; L98.7 Excessive and redundant skin and subcutaneous tissue
CPT/HCPCS: 98967

== ENCOUNTER → 2024-06-12 11:41 | Outpatient (BNVA) | payer BC, SELFPAY | PROVIDERS: PCP Nurse Practitioner Family; Visit Provider Physician Assistant Surgical ==

== ENCOUNTER 2024-07-30 09:41 | Outpatient (REF) | payer BC, SELFPAY ==
[2024-07-30 11:37] LABS: Free T4 (Free Thyroxine) 1.51 ng/dL (0.71-1.85); Thyroid Stimulating Hormone 0.23 uIU/mL (0.32-4.0)
[2024-07-30 11:38] LABS: TSH reflex Free T4 0.22 uIU/mL (0.32-4.0)
== END 2024-07-30 09:42 | disposition home or self-care (01) ==
LOC: HO.10HDL 09:41
PROVIDERS: Nurse Practitioner Family; Visit Provider Internal Medicine Endocrinology, Diabetes & Metabolism
DX: E03.9 Hypothyroidism, unspecified (principal)
CPT/HCPCS: 36415; 84439; 84443

== ENCOUNTER 2024-08-03 11:50 | Outpatient (REF) | payer BC, SELFPAY ==
[2024-08-03 14:05] LABS: MANUAL DIFF FLAG NO
[2024-08-03 14:12] LABS: Basophils Percent Auto 0.5 % (0-2); Eosinophils Absolute Auto 0.1 X10*3/uL (0.0-0.4); Eosinophils Percent Auto 1.5 % (0-4); Hematocrit 41.9 % (37.0-47.0); Hemoglobin 14.4 g/dl (12.0-16.0); Imm Gran Abs Auto 0.02 X10*3/uL (0.00-0.03); Imm Gran Pct Auto 0.3 % (0.0-0.4); Lymphocytes Absolute Auto 1.7 X10*3/uL (1.2-4.9); Lymphocytes Percent Auto 29.7 % (20-40); Mean Corpuscular HGB Conc 34.4 g/dl (31.0-35.0); Mean Corpuscular Hemoglobin 33.4 pg (27.0-33.0); Mean Corpuscular Volume 97.2 fL (80.0-98.0); Mean Platelet Volume 8.7 fL (9.4-12.3); Monocytes Absolute Auto 0.4 X10*3/uL (0.1-1.2); Monocytes Percent Auto 6.2 % (2-11); Neutrophils Absolute Auto 3.6 x10*3/uL (2.0-8.3); Neutrophils Percent Auto 61.8 % (45-73); Platelet Count 261 X10*3/uL (160-400); Red Blood Count 4.31 X10*6/uL (4.20-5.50); Red Cell Distribution Width 12.3 % (11.0-16.0); White Blood Count 5.8 X10*3/uL (4.8-10.8)
[2024-08-03 14:35] LABS: Estimated Average Glucose 91 mg/dL; Hemoglobin A1C 108.3005 umol/L; Hemoglobin A1c % 4.8 % (<6.0); Total Hemoglobin (HGBA1C) 3678.5115 umol/L
[2024-08-03 14:36] LABS: Alanine Aminotransferase 16 U/L (0-31); Albumin Level 4.3 g/dL (3.5-5.0); Alkaline Phosphatase 72 U/L (39-117); Anion Gap 9 (12-20); Aspartate Amino Transferase 20 U/L (5-31); Bilirubin Total 0.7 mg/dL (0.0-1.0); Blood Urea Nitrogen 8 mg/dL (9-16); C Reactive Protein 0.13 mg/dL (< or = 0.50); Carbon Dioxide 26 mmol/L (22-29); Chloride 105 mmol/L (96-108); Cholesterol 189 mg/dL (<200); Estimated Glomerular Filt Rate > 60; Glucose Random 87 mg/dL (60-115); HDL Cholesterol 55 mg/dL (>40); Iron 100 mcg/dL (30-160); LDL Cholesterol Calculated 116 mg/dL (<100); Percent Iron Saturation 33 % (15-50); Potassium 3.4 mmol/L (3.3-5.1); Sodium 137 mmol/L (135-145); Total Iron Binding Capacity 304 mcg/dL (228-428); Total Protein 7.4 g/dL (6.5-8.0); Triglycerides 90 mg/dL (<150); Unsaturated Iron Binding 204 ug/dL
[2024-08-03 14:48] LABS: Ferritin 49 ng/mL (10-122)
[2024-08-03 14:57] LABS: Folate 15.3 ng/mL (> or = 4.0); Vitamin B12 1143 pg/mL (200-900)
[2024-08-03 15:07] LABS: Insulin 4 uU/mL (2-29)
[2024-08-03 15:15] LABS: Parathyroid Hormone Intact 52.8 pg/mL (8.7-77.1)
[2024-08-09 17:58] LABS: Vitamin A 41 mcg/dL (38-98)
[2024-08-11 14:04] LABS: Vitamin B1 9 nmol/L (8-30)
== END 2024-08-03 11:51 | disposition home or self-care (01) ==
LOC: HO.WFDLDS 11:50
PROVIDERS: Visit Provider Physician Assistant Surgical
DX: Z98.84 Bariatric surgery status (principal); Z13.1 Encounter for screening for diabetes mellitus
CPT/HCPCS: 36415; 80053; 80061; 82306; 82607; 82728; 82746; 83036; 83525; 83540; 83970; 84425; 84590; 85025; 86140

== ENCOUNTER 2024-08-04 07:45 | Outpatient (REF) | payer BC, SELFPAY ==
[2024-08-08 01:49] LABS: Zinc 79 mcg/dL (60-130)
== END 2024-08-04 07:46 | disposition home or self-care (01) ==
LOC: HO.LAB 07:45
PROVIDERS: PCP Nurse Practitioner Family; Visit Provider Physician Assistant Surgical
DX: Z98.84 Bariatric surgery status (principal)
CPT/HCPCS: 36415; 84630

== ENCOUNTER 2024-08-06 09:29 | Outpatient (AMB) | payer BC, SELFPAY ==
--- NOTE | 2024-08-06 09:35 | MHC.OFFVISWM ---
VS Expanded 08/06/24 09:43 BP 117/77 Blood Pressure Location Rt brachial Blood Pressure Position Sitting Pulse 89 Pulse Source Pulse Oximeter Temp 97.3 F Temperature Source Temporal Artery Scan Pulse Oximetry 100 Oxygen Delivery Method Room Air Height 5 ft 4 in Weight 136 lb 3.2 oz BMI 23.4 Body Fat % 27.1 Body Fat Mass 36.8 Fat Free Mass 99.2 Visceral Fat Rating 3.0 Body Water % 52.2 Body Water Mass 71.0 Muscle Mass/Score 94.2 Basal Metabolic Rate/Score 1,349 Intake Visit Reasons: (OV) PO LSG 01/03/24 Allergies avocado Allergy (Severe, Verified 08/06/24 09:37) Itching adhesive tape Allergy (Mild, Verified 08/06/24 09:38) Rash sertraline Allergy (Unknown, Verified 08/06/24 09:37) Rash Medication List - Last Reconciled 08/06/24 by ANDRES Solares bupropion HCl XL 300 mg PO DAILY clotrimazole 1% 1 appl topical BID docusate sodium (Colace) 100 mg PO DAILY fluticasone propionate 50 mcg/actuation 1 spray intranasal DAILY PRN hydroxyzine HCl 25 mg PO TID PRN levothyroxine 150 mcg PO DAILY 30 days loratadine (Claritin) 10 mg PO DAILY vitamin A palmitate 10,000 units PO DAILY HPI Comments Details: This?is a?33?yo female who is s/p LSG 01/03/2024. Presents for 7 month post op visit. Weight at last visit on 06/12/2024 was 148 pounds; weight today is 136.2 pounds, representing a 11.8 pound weight loss with a BMI today of 23.4.? No complaints of nausea, emesis, abdominal pain or reflux, or constipation. Present meal plan includes: using [employer] liudmila sometimes 3 Premier shakes with half scoop 1.5 bar sometimes with the option to add a meal takes MVI Exercise routine includes: treadmill at the gym 65min, 500-670 calories 5x week for [id number] serg/week Pt reports issues of excess skin of abdomen. Has started experiencing a rash around belly button. Has tried rubbing alcohol and topical antifungal, has tried to keep clean and dry. Has also tried KT tape to keep skin elevated but this has not helped. Pt has started wearing pants with compressive/high waisted waistband to help hold excess skin in place to try to prevent discomfort. Also reports excess skin of thighs, increasing chafing and irritation. Excess skin gets in the way of typical daily activities like bending down, skin gets pinched. Also reports excess skin of upper arms, increasing chafing and irritation. Excess skin gets in the way of typical daily activities, like walking when arms swing and rub against the torso. [facility] Medical History BMI 38.0-38.9,adult Vaccine counseling Laboratory tests ordered as part of a complete physical exam (CPE) Encounter for weight management BMI 40.0-44.9, adult Vaginal itching Normal physical exam Hx of Hypothyroidism Sleep apnea Graves disease Depression Anxiety Surgical History Hx of laparoscopic partial gastrectomy History of surgery History of wisdom tooth extraction History of sinus surgery Family History Father No family history of mental disorder Diabetes Mother No family history of mental disorder Breast cancer Daughter No problems noted. Daughter No problems noted. Son No problems noted. 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 Sexual orientation: Straight/Heterosexual Gender identity: Female Cognitive needs: No Hearing needs: No Vision needs: No Physical Exam Vital Signs: Last Vital Signs Temp 97.3 F 08/06/24 09:43 Pulse 89 08/06/24 09:43 BP 117/77 08/06/24 09:43 Pulse Ox 100 08/06/24 09:43 Oxygen Delivery Method Room Air 08/06/24 09:43 BMI result Body Mass Index 23.4 Const General: cooperative, comfortable and no acute distress Orientation/consciousness: patient oriented x3 GI Other: soft, nontender, nondistended, incisions well healed, no hernia, no masses Grade II pannus Neuro General: patient oriented x3 Assessment & Plan Assessment & Plan (1) Excess skin: Code(s): L98.7 - Excessive and redundant skin and subcutaneous tissue Category: Medical (2) S/P laparoscopic sleeve gastrectomy: Code(s): Z98.84 - Bariatric surgery status Category: Surgical Plan Pt doing well on current meal plan, achieved healthy weight. Labs reviewed, vit A/B1/zinc still pending. Has appt with endo coming up also. Having problems of excess skin resulting in rashes, chafing, discomfort, limited activites of daily living. Pt is interested in abdomen and upper thighs first. RTC 2-3 months. I spent a total of 30 minutes reviewing/updating records, examining the patient and counseling the patient on weight management as detailed above. Orders: Orders Hemoglobin A1c 08/03/24.84 - Bariatric surgery status Complete Blood Count Auto Diff 08/03/24.84 - Bariatric surgery status Lipid Panel 08/03/24.84 - Bariatric surgery status IRON PROFILE 08/03/24.84 - Bariatric surgery status Comprehensive Met. Panel 08/03/24.84 - Bariatric surgery status Vitamin B12 and Folate 08/03/24.84 - Bariatric surgery status Zinc 08/04/2498.84 - Bariatric surgery status C Reactive Protein 08/03/2498.84 - Bariatric surgery status Vitamin A 08/03/2498.84 - Bariatric surgery status Ferritin 08/03/24.84 - Bariatric surgery status Insulin 08/03/24.84 - Bariatric surgery status Vitamin B1 08/03/2498.84 - Bariatric surgery status Vitamin D 25-OH Total 08/03/2498.84 - Bariatric surgery status Parathyroid Hormone Intact 08/03/24.84 - Bariatric surgery status
[2024-08-06 09:43] VITALS: BP 117/77; PULSE 89; TEMP 36.3; O2SAT 100; BMI 23.4
== END 2024-08-06 10:26 | disposition home or self-care (01) ==
PROVIDERS: PCP Nurse Practitioner Family; Visit Provider Physician Assistant Surgical
DX: L98.7 Excessive and redundant skin and subcutaneous tissue (principal); Z98.84 Bariatric surgery status
CPT/HCPCS: 99214

== ENCOUNTER 2024-08-09 15:41 | Outpatient (AMB) | payer BC, SELFPAY ==
--- NOTE | 2024-08-09 15:49 | A.OFFVIS_ITS ---
Vital Signs 08/09/24 15:51 Height 5 ft 4 in Weight 138 lb 10.732 oz BMI 23.8 BP 124/84 Blood Pressure Location Rt brachial Position Sitting Pulse 110 H Pulse Source Pulse Oximeter Intake Visit Reasons: Thyroid follow up-confirmed Intake Note: Patient present today for Thyroid follow up visit. Case Monitor Required: No Accompanied by: Self / Same As Patient Allergies avocado Allergy (Severe, Verified 08/09/24 15:51) Itching adhesive tape Allergy (Mild, Verified 08/09/24 15:51) Rash sertraline Allergy (Unknown, Verified 08/09/24 15:51) Rash HPI Comments Details: 33 YO F with PMHx hypothyroidism who is seen in consultation at the request of his PCP for Hyothyroidism. At age 14 had Grave's DX S/P I-131 with post-ablative hypothyroidism Currently using thyroid hormone. On Levothyroxine on 150 ug Has fatigue, weight gain, cold intolerance, dry skin, hair loss, constipation. There is no hx of hyperlipidemia . Denies obstructive sx of goiter . Denies consuming any kelp or seaweed. Denies taking amiodarone. Denies current or desiring to become in near future. Menses: nl Biotin: yes Family hx of thyroid dx: No Labs: Recently had sleeve gastrectomy and lost a good deal weight PFSH Medical History BMI 38.0-38.9,adult Vaccine counseling Laboratory tests ordered as part of a complete physical exam (CPE) Encounter for weight management BMI 40.0-44.9, adult Vaginal itching Normal physical exam Hx of Hypothyroidism Sleep apnea Graves disease Depression Anxiety Surgical History Hx of laparoscopic partial gastrectomy History of surgery History of wisdom tooth extraction History of sinus surgery Family History Father No family history of mental disorder Diabetes Mother No family history of mental disorder Breast cancer Daughter No problems noted. Daughter No problems noted. Son No problems noted. 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 There are no thyroid nodules palpated Assessment & Plan Assessment & Plan (1) Hypothyroidism: Code(s): E03.9 - Hypothyroidism, unspecified Category: Medical Plan: This is a 32-year-old white female with history of post-ablative hypothyroidism be replaced on 175 mcg levothyroxine She appears to be clinically euthyroid but has a slightly suppressed TSH level probably due to decreased requirement after weight loss Plan is to decrease levothyroxine to 125 mcg and recheck TSH and free T4 in 6 weeks time Orders: Orders Free T4 (Free Thyroxine) 6 Weeks E03.9 - Hypothyroidism, unspecified Thyroid Stimulating Hormone 6 Weeks E03.9 - Hypothyroidism, unspecified Medications: New levothyroxine 125 mcg PO DAILY 30 tabs 5RF Discontinued levothyroxine Discontinued Reason: Doctor's Order 150 mcg PO DAILY 30 days 30 tabs 3RF Coding Level of Care Code Est Pt Level 3 (07816) Diagnoses Hypothyroidism E03.9
[2024-08-09 15:51] VITALS: BP 124/84; PULSE 110; BMI 23.8
== END 2024-08-09 16:02 | disposition home or self-care (01) ==
PROVIDERS: PCP Nurse Practitioner Family; Visit Provider Internal Medicine Endocrinology, Diabetes & Metabolism
DX: E03.9 Hypothyroidism, unspecified (principal)
CPT/HCPCS: 99213

== ENCOUNTER 2024-09-21 22:27 | Emergency (ER) | payer BC, SELFPAY ==
--- NOTE | ~2024-09-21 | XR_ITS ---
CLINICAL HISTORY: shoulder pain 3 view right shoulder Comparison: None Findings: No fractures or dislocations. The right humeral head is appropriately positioned with respect to the right glenoid. No radiopaque foreign body. The visualized portion of the right lung appears clear. IMPRESSION: 1. No acute fracture or dislocation injury identified at the right shoulder. This document has been electronically signed by: Flaco Abdi MD on 09/21/2024 23:44:12
[2024-09-21 22:35] VITALS: BP 149/75; PULSE 72; RESP 17; TEMP 36.6; O2SAT 99; BMI 24.0
[2024-09-21 23:01] LABS: MANUAL DIFF FLAG NO
[2024-09-21 23:03] LABS: Basophils Absolute Auto 0.1 X10*3/uL (0.0-0.2); Basophils Percent Auto 0.6 % (0-2); Eosinophils Absolute Auto 0.2 X10*3/uL (0.0-0.4); Eosinophils Percent Auto 2.2 % (0-4); Hematocrit 40.7 % (37.0-47.0); Hemoglobin 14.1 g/dl (12.0-16.0); Imm Gran Abs Auto 0.02 X10*3/uL (0.00-0.03); Imm Gran Pct Auto 0.2 % (0.0-0.4); Lymphocytes Percent Auto 36.2 % (20-40); Mean Corpuscular HGB Conc 34.6 g/dl (31.0-35.0); Mean Corpuscular Hemoglobin 33.1 pg (27.0-33.0); Mean Corpuscular Volume 95.5 fL (80.0-98.0); Mean Platelet Volume 8.2 fL (9.4-12.3); Monocytes Absolute Auto 0.6 X10*3/uL (0.1-1.2); Monocytes Percent Auto 7.5 % (2-11); Neutrophils Absolute Auto 4.4 x10*3/uL (2.0-8.3); Neutrophils Percent Auto 53.3 % (45-73); Platelet Count 251 X10*3/uL (160-400); Red Blood Count 4.26 X10*6/uL (4.20-5.50); Red Cell Distribution Width 11.8 % (11.0-16.0); White Blood Count 8.2 X10*3/uL (4.8-10.8)
[2024-09-21 23:17] LABS: Alanine Aminotransferase 20 U/L (0-31); Albumin Level 4.1 g/dL (3.5-5.0); Alkaline Phosphatase 81 U/L (39-117); Anion Gap 10 (12-20); Aspartate Amino Transferase 22 U/L (5-31); Bilirubin Total 0.5 mg/dL (0.0-1.0); Blood Urea Nitrogen 10 mg/dL (9-16); Calcium 8.8 mg/dL (8.4-10.2); Carbon Dioxide 25 mmol/L (22-29); Chloride 107 mmol/L (96-108); Creatinine Clr Calc Pharmacy 90.7; Estimated Glomerular Filt Rate > 60; Glucose Random 97 mg/dL (60-115); Potassium 3.8 mmol/L (3.3-5.1); Sodium 138 mmol/L (135-145); Total Protein 7.1 g/dL (6.5-8.0)
--- NOTE | 2024-09-22 03:01 | ED_ITS ---
HPI - General Adult General Chief complaint: Extremity Problem Stated complaint: R leg numbness, R shoulder pain Time Seen by Provider: 09/22/24 02:59 Source: patient Mode of arrival: ambulatory Limitations: no limitations History of Present Illness ED Provider: HPI narrative: Patient complaining of pain in the right arm in the shoulder for over a month denies any injury also complaining of pain in the upper back feels tingling in both hands no neck no lower extremity weakness no diagnose with a fibromyalgia Related Data Home Medications ?Medication ?Instructions ?Recorded ?Confirmed fluticasone propionate 50 1 spray intranasal DAILY PRN 07/16/22 08/06/24 mcg/actuation nasal Allergy Symptoms spray,suspension loratadine 10 mg tablet (Claritin) 10 mg PO DAILY 06/14/23 08/06/24 bupropion HCl 300 mg 24 hr tablet, 300 mg PO DAILY 10/11/23 08/06/24 extended release hydroxyzine HCl 25 mg tablet 25 mg PO TID PRN Anxiety 12/26/23 08/06/24 clonidine HCl 0.1 mg tablet 0.1 mg PO BEDTIME 08/09/24 levothyroxine 175 mcg tablet 175 mcg PO DAILY 08/09/24 Previous Rx's ?Medication ?Instructions ?Recorded docusate sodium 100 mg capsule 100 mg PO DAILY #90 caps 01/30/24 (Colace) clotrimazole 1 % topical cream 1 appl topical BID #45 grams 04/24/24 vitamin A palmitate 3,000 mcg 10,000 unit PO DAILY #90 caps 05/16/24 (10,000 unit) capsule levothyroxine 125 mcg tablet 125 mcg PO DAILY #30 tabs 08/09/24 Allergies Allergy/AdvReac Type Severity Reaction Status Date / Time avocado Allergy Severe Itching Verified 09/21/24 22:37 adhesive tape Allergy Mild Rash Verified 09/21/24 22:37 sertraline Allergy Unknown Rash Verified 09/21/24 22:37 Review of Systems 2 Review of Systems: Yes all other systems are reviewed and are negative PMFSH Past Medical History Medical History BMI 38.0-38.9,adult Vaccine counseling Laboratory tests ordered as part of a complete physical exam (CPE) Encounter for weight management BMI 40.0-44.9, adult Vaginal itching Normal physical exam Hx of Hypothyroidism Sleep apnea Graves disease Depression Anxiety Surgical History Hx of laparoscopic partial gastrectomy History of surgery History of wisdom tooth extraction History of sinus surgery Family History Family History Father No family history of mental disorder Diabetes Mother No family history of mental disorder Breast cancer Daughter No problems noted. Daughter No problems noted. Son No problems noted. Other Mental health disorder Social History Social History Household Members: Spouse and Family Housing: House Are you a primary home care music therapist to a significant other at home: No Do you presently have visiting nurse or other home services: No Alcohol intake: current Alcohol intake frequency: holidays/special occasions only Patient Tobacco Use Status: Former Tobacco user Cigarettes Per Day: 2 Years Smoked: 10 years e-Cigarette/Vaping Use: Never Used Second Hand Smoke Exposure: No Advance Directives: No Advance Directives Information Provided: Yes Do you have a plan to hurt others: No Plan service: No Current occupational status: employed 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 Oriented X3. No acute distress. ENT: Pharynx normal. Oral Mucosa moist Neck: Normal inspection. Neck supple. No midline tenderness CVS: Normal heart rate and rhythm. Pulses normal. Respiratory: No respiratory distress. Equal air entry bilateral, no wheezing/rales/rhonchi Skin: Skin warm and dry. Normal skin color. Normal skin turgor. Extremities: No lower extremity edema. Right shoulder diffuse tenderness in upper back area in the shoulder area Tinel sign negative Phalen sign negative no objective findings of sensation loss Neuro: Oriented X 3. Medications Administered Discontinued Medications Generic Name Dose Route Start Last Admin Trade Name Freq PRN Reason Stop Dose Admin Ibuprofen 600 mg 09/22/24 03:26 09/22/24 03:54 Ibuprofen 600 Mg Tablet PO 09/22/24 03:27 Not Given ONCE ONE Medical Decision Making Medical Decision Making MDM Narrative: Patient likely with musculoskeletal pain/fibromyalgia with diffuse upper back pain patient advised to follow up with PCP Lab Data MDM Lab Attestation statement: I reviewed the patient's lab results. 09/21/24 22:57 09/21/24 22:57 Labs: Lab Results 09/21/24 Range/Units 22:57 WBC 8.2 (4.8-10.8) X10*3/uL RBC 4.26 (4.20-5.50) X10*6/uL Hgb 14.1 (12.0-16.0) g/dl Hct 40.7 (37.0-47.0) % MCV 95.5 (80.0-98.0) fL MCH 33.1 H (27.0-33.0) pg MCHC 34.6 (31.0-35.0) g/dl RDW 11.8 (11.0-16.0) % Plt Count 251 (160-400) X10*3/uL MPV 8.2 L (9.4-12.3) fL Immature Gran % (Auto) 0.2 (0.0-0.4) % Neut % (Auto) 53.3 (45-73) % Lymph % (Auto) 36.2 (20-40) % Stephenson % (Auto) 7.5 (2-11) % Eos % (Auto) 2.2 (0-4) % Baso % (Auto) 0.6 (0-2) % Lymph # (Auto) 3.0 (1.2-4.9) X10*3/uL Stephenson # (Auto) 0.6 (0.1-1.2) X10*3/uL Eos # (Auto) 0.2 (0.0-0.4) X10*3/uL Baso # (Auto) 0.1 (0.0-0.2) X10*3/uL Abs Immat Gran (auto) 0.02 (0.00-0.03) X10*3/uL Absolute Neuts (auto) 4.4 (2.0-8.3) x10*3/uL Absolute Nucleated RBC 0.000 (0.0-0.012) X10*3/uL Nucleated RBC % (auto) 0.0 (0.0-0.2) /100WBC Sodium 138 (135-145) mmol/L Potassium 3.8 (3.3-5.1) mmol/L Chloride 107 (96-108) mmol/L Carbon Dioxide 25 (22-29) mmol/L Anion Gap 10 L (12-20) BUN 10 (9-16) mg/dL Creatinine 0.74 (0.5-1.4) mg/dL Estim Creat Clear Calc 90.7 Estimated GFR > 60 Random Glucose 97 (60-115) mg/dL Calcium 8.8 (8.4-10.2) mg/dL Total Bilirubin 0.5 (0.0-1.0) mg/dL AST 22 (5-31) U/L ALT 20 (0-31) U/L Alkaline Phosphatase 81 (39-117) U/L Total Protein 7.1 (6.5-8.0) g/dL Albumin 4.1 (3.5-5.0) g/dL Independent Interpretation I performed an independent interpretation of an: Plain X-Ray Interpretation: NAD Discharge Plan Discharge Clinical Impression: Paresthesia, Musculoskeletal arm pain Patient Disposition: Home, Self-Care Instructions: Paresthesia (ED), Arm Pain (ED) Additional Instructions: Take ibuprofen for pain off your right shoulder which is musculoskeletal Cause of Numbness of your right lower extremity is not clear, you need to follow with PCP and neurologist for further workup and management Prescriptions: No Action docusate sodium [Colace] 100 mg capsule 100 mg PO DAILY Qty: 90 0RF vitamin A palmitate 3,000 mcg (10,000 unit) capsule 10,000 unit PO DAILY Qty: 90 3RF hydroxyzine HCl 25 mg tablet 25 mg PO TID PRN (Reason: Anxiety) bupropion HCl 300 mg tablet extended release 24 hr 300 mg PO DAILY fluticasone propionate 50 mcg/actuation spray,suspension 1 spray intranasal DAILY PRN (Reason: Allergy Symptoms) loratadine [Claritin] 10 mg tablet 10 mg PO DAILY clotrimazole 1 % cream 1 appl topical BID Qty: 45 3RF clonidine HCl 0.1 mg tablet 0.1 mg PO BEDTIME levothyroxine 175 mcg tablet 175 mcg PO DAILY levothyroxine 125 mcg tablet 125 mcg PO DAILY Qty: 30 5RF Referrals: Maxwell Castañeda MD [Physician] - Interventions: ED Discharge Assessment Last Done: 09/22/24 03:55 Discharge Date/Time: 09/22/24 03:56 Print Language: Palestinian
[2024-09-22 03:55] VITALS: BP 136/71; PULSE 84; RESP 16; TEMP 36.9; O2SAT 99
== END 2024-09-22 03:56 | disposition home or self-care (01) ==
PROVIDERS: Emergency Provider Internal Medicine; PCP Nurse Practitioner Family
DX: M25.511 Pain in right shoulder (principal); R20.2 Paresthesia of skin; Z87.891 Personal history of nicotine dependence; Z79.899 Other long term (current) drug therapy
CPT/HCPCS: 36415; 73030; 80053; 85025; 99282; 99283

== ENCOUNTER → 2024-09-21 23:05 | Outpatient (BNV) | payer BC, SELFPAY | PROVIDERS: PCP Nurse Practitioner Family; Visit Provider Radiology Diagnostic Radiology | DX: M25.511 Pain in right shoulder (principal) | CPT/HCPCS: 73030 ==

== ENCOUNTER 2024-10-26 15:04 | Outpatient (AMB) | payer BC, SELFPAY ==
--- NOTE | 2024-10-26 15:05 | MHC.PC.OV ---
Vital Signs 10/26/24 15:10 Height 5 ft 4.5 in Weight 139 lb BMI 23.5 BP 113/76 Blood Pressure Location Rt brachial Position Sitting Respiration 16 Pulse 82 Pulse Source Pulse Oximeter Temp 98.0 F Temp Source Oral Pulse Oximetry (%) 100 Oxygen Delivery Method Room Air Intake Visit Reasons: ER / FU Numbness on right foot ankle Intake Note: patient here for [facility] ER follow up on right foot ankle Plastic Printer Required: No Is last menstrual period known: Yes Last menstrual period: 10/10/24 Post menopausal: No Patient : No Allergies avocado Allergy (Severe, Verified 10/26/24 15:23) Itching adhesive tape Allergy (Mild, Verified 10/26/24 15:23) Rash sertraline Allergy (Unknown, Verified 10/26/24 15:23) Rash Medication List - Last Reconciled 10/26/24 by Migue Sanderson CNP bupropion HCl XL 300 mg PO DAILY clonidine HCl 0.1 mg PO BEDTIME docusate sodium (Colace) 100 mg PO DAILY hydroxyzine HCl 25 mg PO TID PRN levothyroxine 125 mcg PO DAILY loratadine (Claritin) 10 mg PO DAILY vitamin A palmitate 10,000 units PO DAILY Tobacco use date assessed: 10/26/24 Dental Screening Dental Screen Date: 10/26/24 Did you have a dental visit in the last 12 months?: Yes Did you have a dental problem in the last 6 months where you did not have access to dental care?: No Was dental information given to patient?: Patient has dentist HPI HPI Comments History of Present Illness Details 34-year-old female presents for ED follow-up visit. She was seen at [facility] ED between 09/21/2024 and 09/22/2024 for complaints of right shoulder pain. Labs and imaging of the right shoulder were unrevealing. She was advised to take ibuprofen for shoulder pain and follow-up with PCP or Neurology for numbness of right lower extremity. She reports numbness to her RLE (calf to foot)with minimal loss of sensation for the past few months. Denies tingling. No injury or trauma. Her shoulder pain as significantly improved. [facility] Medical History BMI 38.0-38.9,adult Vaccine counseling Laboratory tests ordered as part of a complete physical exam (CPE) Encounter for weight management BMI 40.0-44.9, adult Vaginal itching Normal physical exam Hx of Hypothyroidism Sleep apnea Graves disease Depression Anxiety Surgical History Hx of laparoscopic partial gastrectomy History of surgery History of wisdom tooth extraction History of sinus surgery Family History Father No family history of mental disorder Diabetes Mother No family history of mental disorder Breast cancer Daughter No problems noted. Daughter No problems noted. Son No problems noted. 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 1. Little interest or pleasure in doing things: several days 2. Feeling down, depressed, or hopeless: several days 3. Trouble falling or staying asleep, or sleeping too much: not at all 4. Feeling tired or having little energy: several days 5. Poor appetite or overeating: several days 6. Feeling bad about yourself - or that you are a failure or have let yourself or your family down: several days 7. Trouble concentrating on things, such as reading the newspaper or watching television: several days 8. Moving or speaking so slowly that other people could have noticed. Or the opposite - being so fidgety or restless that you have been moving around a lot more than usual: not at all 9. Thoughts that you would be better off or of hurting yourself in some way: not at all Total score: 6 Depression Screening Interpretation: Positive Depression Screening Follow-up: Existing condition Depression Screening Done: Yes Source: Developed by Drs. Tj Sr, Gabbi Andrea, Rafa Ellis and colleagues, with an educational chen from [employer]. Thrive Questionnaire Date Thrive assessed: 10/19/24 I am a: Patient What is your living situation today?: I have a steady place to live Within the past 12 months, did the food you bought not last and you didn't have the money to get more?: Sometimes True Within the past 12 months, did you worry whether your food would run out before you got money to buy more?: Often true Do you have trouble paying for medicines?: Yes Do you have trouble getting transportation to medical appointments?: No Do you have trouble paying your heating and electricity bill?: Yes Do you have trouble taking care of your child, family member or friend?: Yes Do you have trouble with day-to-day activities such as bathing, preparing meals, shopping, managing finances, etc.?: No Are you currently unemployed and looking for a job?: No Are you interested in more education?: No Please select the resources that you would like help with: Utilities Currently or been in a relationship where the following occur: I choose not to answer THRIVE Score: 3 AUDIT C Alcohol Use Questionnaire (AUDIT-C) 1. How often do you have a drink containing alcohol?: 2-3 times a week 2. How many drinks containing alcohol do you have on a typical day when you are drinking?: 1 or 2 3. How often do you have six or more drinks on one occasion?: Less than monthly Total Score: 4 FEROZ-7 AMB Questionnaire FEROZ-7 Date FEROZ - 7 assessed: 02/28/24 Feeling nervous, anxious, or on edge: 2 = More than half the days Not being able to stop or control worryin = More than half the days Worrying too much about different things: 2 = More than half the days Trouble relaxin = Nearly every day Being so restless that it is hard to sit still: 0 = Not at all Becoming easily annoyed or irritable: 3 = Nearly every day Feeling afraid as if something awful might happen: 1 = Several days Total FEROZ-7 score (0-4 normal; 5-9 mild; 10-14 moderate; 15-21 severe): 13 Source: Developed by Drs. Tj Sr, Gabbi Andrea, Rafa Ellis and colleagues, with an educational chen from [employer]. Review of Systems Const Details: Const Denies chills, Denies fatigue, Denies fever(s), Denies headache(s) and Denies weakness ENT Denies dizziness and Denies headache(s) Card Denies chest pain, Denies lightheadedness, Denies dyspnea and Denies other (Palpitations) Resp Denies cough, Denies dyspnea, Denies wheezing and Denies other ( shortness of breath) GI Denies abdominal pain, Denies melena, Denies hematochezia, Denies change in bowel habits, Denies dyspepsia and Denies nausea Denies hematuria and Denies dysuria Musc Denies abnormal gait, Denies myalgias, Denies arthralgias, Reports numbness and Denies tingling Skin/Breast Denies rash, Denies unusual bruising and Denies wounds Neuro Denies abnormal gait, Denies dizziness, Denies headache(s), Denies memory loss, Denies numbness, Denies Sensory deficit (Neuro), Denies tingling and Denies weakness Endo Denies cold intolerance, Denies fatigue, Denies heat intolerance, Denies polydipsia and Denies polyuria Aller/Immun Denies wheezing Physical exam (Primary Care) Vital Signs: Last Vital Signs Temp 98.0 F 10/26/24 15:10 Pulse 82 10/26/24 15:10 Resp 16 10/26/24 15:10 BP 113/76 10/26/24 15:10 Pulse Ox 100 10/26/24 15:10 Oxygen Delivery Method Room Air 10/26/24 15:10 BMI result Body Mass Index 23.5 Tobacco/Smoking Status: Tobacco use Status Tobacco use date assessed 10/26/24 10/26/24 15:12 Patient Tobacco Use Status Former Tobacco user 10/26/24 15:07 e-Cigarette/Vaping Use Never Used 10/26/24 15:07 PHQ-9: PHQ-9 Score PHQ-9: Total score 6 10/26/24 15:07 Depression Screening Interpretation: Positive Depression Screening Follow-up: Existing condition Thrive Assessment: Date of Thrive Assessment Date Thrive assessed 10/19/24 10/26/24 15:07 Currently or been in a relationship where the following occur: I choose not to answer Const Other: General: no acute distress and well developed Nutritional Appearance: well nourished Orientation/consciousness: patient oriented x3 [facility] Head: Yes normocephalic and Yes atraumatic Eyes General: appearance normal, both eyes and all related structures Pupils: Equal, round and reactive pupils present EOM: EOMs intact bilaterally Resp Effort & Inspection: normal respiratory effort Auscultation: clear to auscultation bilaterally Cardio Rate: regular rate Rhythm: regular rhythm Heart sounds: S1 normal heart sound present, S2 normal heart sound present, no gallops, no murmurs and no rubs GI Palpation (GI): No Abdominal aortic bruit present, Soft to palpation, nontender, No hepatosplenomegaly present and No Rebound tenderness present Auscultation: normal bowel sounds General: Yes no CVA tenderness Back/Spine/Pelvis Back: no CVA tenderness Cervical Spine: cervical ROM normal and No Cervical spine tenderness Thoracic/Lumbar Spine: thoraco-lumbar ROM normal, No pain with thoraco-lumbar ROM, No thoracic spinal tenderness and No lumbar spinal tenderness Extrem General: Yes normal to inspection, No edema and No calf tenderness. Slightly diminished sensation from the right calf to foot. No overt injury or trauma Skin General: warm and dry. Normal skin color. Normal skin turgor Neuro General: patient oriented x3, gait normal and no focal neuro deficit Cranial nerves: Yes Equal, round and reactive pupils present Cognition (Neuro): normal cognition Gait exam (Neuro): Normal gait present Sensory Exam: No Sensory deficit (Neuro) Psych Appearance: grossly normal Affect: normal affect Attitude: cooperative Thought process: Normal thought process present Coding Level of Care Code Est Pt Level 3 (82154) Diagnoses Numbness of right lower extremity R20.0 Right shoulder pain M25.511 Assessment & Plan Assessment & Plan (1) Numbness of right lower extremity: Code(s): R20.0 - Anesthesia of skin Category: Medical Plan: Slightly diminished sensation from the right calf to foot. No overt injury or trauma. Will check CBC, BMP, vitamin B12 and folate levels. Will make changes as needed. May referred to Neurology. Will trial gabapentin 100 mg daily; advised to take as prescribed. Follow-up in 5-6 weeks for an extended physical exam or return sooner with worsening or new symptoms. Verbalized understanding and agreed with treatment plan. (2) Right shoulder pain: Code(s): M25.511 - Pain in right shoulder Category: Medical Plan: Significantly improved. Continue current treatment regimen. Follow-up as needed. Verbalized understanding and agreed with the plan. Orders: Orders Basic Metabolic Panel Today R20.0 - Anesthesia of skin Complete Blood Count no Diff Today R20.0 - Anesthesia of skin Vitamin B12 and Folate Today R20.0 - Anesthesia of skin Medications: New gabapentin 100 mg PO DAILY 30 days 30 tabs 0RF
[2024-10-26 15:10] VITALS: BP 113/76; PULSE 82; RESP 16; TEMP 36.7; O2SAT 100; BMI 23.5
== END 2024-10-26 15:37 | disposition home or self-care (01) ==
PROVIDERS: PCP Nurse Practitioner Family; Visit Provider Nurse Practitioner Family
DX: R20.0 Anesthesia of skin (principal); M25.511 Pain in right shoulder

== ENCOUNTER 2024-10-26 15:44 | Outpatient (REF) | payer BC, SELFPAY ==
--- OUTSIDE RECORDS SUMMARY | 2024-10-26 15:47 | XMS_ITS | Continuity of Care Document ---
Author Organization [facility] Address [address] [place] [address] Phone Care Team Providers Care Electrotyper Helper Name Role Phone Mark Ray OD Unavailable Unavailable Allergies, Adverse Reactions, Alerts Substance Reaction Status Criticality No Known allergies Medications Medication Instructions Dosage Effective Dates (start - stop) Status Comments levothyroxine 50 mcg tablet - Ac tive 28 mg iron-800 mcg tablet - Active Procedures Procedure Date Comprehensive Eye Exam - New Patient Oct Refractive State Advance Directives Directive Yes / No Effective Date File Name No Information Encounters Encounter Description Practice Location Reason(s) For Visit Diagnoses Date Provider Providers Copied on Encounter [facility], [address] [place] [address], [id number], tel:[phone] [facility] [employer] [facility], bilateral Cory Flores. [address] [place] [address], [facility], . tel:[phone] Referring Provider: Mark Ray, [address] [place] [address], [facility]. tel:[phone] Family History Family Member Type Diagnosis Age At Onset Multiple Problem (finding) Cancer Father Problem (finding) Diabetes Payers Payer name Insurance type Covered constitution party ID Authoriza tion(s) [facility] Medicaid [id number] Social History Type Description Quantity Date Captured [...]
[2024-10-26 18:05] LABS: Hematocrit 41.5 % (37.0-47.0); Hemoglobin 13.9 g/dl (12.0-16.0); Mean Corpuscular HGB Conc 33.5 g/dl (31.0-35.0); Mean Corpuscular Hemoglobin 32.8 pg (27.0-33.0); Mean Corpuscular Volume 97.9 fL (80.0-98.0); Mean Platelet Volume 8.8 fL (9.4-12.3); Platelet Count 244 X10*3/uL (160-400); Red Blood Count 4.24 X10*6/uL (4.20-5.50); Red Cell Distribution Width 11.9 % (11.0-16.0); White Blood Count 7.8 X10*3/uL (4.8-10.8)
[2024-10-26 18:14] LABS: Anion Gap 12 (12-20); Blood Urea Nitrogen 16 mg/dL (9-16); Calcium 9.2 mg/dL (8.4-10.2); Carbon Dioxide 25 mmol/L (22-29); Chloride 107 mmol/L (96-108); Estimated Glomerular Filt Rate > 60; Glucose Random 91 mg/dL (60-115); Potassium 3.8 mmol/L (3.3-5.1); Sodium 140 mmol/L (135-145)
[2024-10-26 18:32] LABS: Free T4 (Free Thyroxine) 1.41 ng/dL (0.71-1.85); Thyroid Stimulating Hormone 0.67 uIU/mL (0.32-4.0)
[2024-10-26 18:45] LABS: Folate 12.6 ng/mL (> or = 4.0); Vitamin B12 848 pg/mL (200-900)
== END 2024-10-26 15:45 | disposition home or self-care (01) ==
LOC: HO.WFDLDS 15:44
PROVIDERS: Referring Provider Internal Medicine Endocrinology, Diabetes & Metabolism; Visit Provider Nurse Practitioner Family
DX: E03.9 Hypothyroidism, unspecified (principal); R20.0 Anesthesia of skin
CPT/HCPCS: 36415; 80048; 82607; 82746; 84439; 84443; 85027

== ENCOUNTER 2024-10-30 12:26 | Outpatient (AMB) | payer BC, SELFPAY ==
--- NOTE | 2024-10-30 12:32 | MHC.OFFVISWM ---
VS Expanded 10/30/24 12:37 BP 138/87 Blood Pressure Location Rt brachial Blood Pressure Position Sitting Pulse 78 Pulse Source Pulse Oximeter Temp 98.4 F Temperature Source Temporal Artery Scan Pulse Oximetry 100 Oxygen Delivery Method Room Air Height 5 ft 4 in Weight 134 lb 3.2 oz BMI 23.0 Body Fat % 23.4 Body Fat Mass 31.4 Fat Free Mass 102.8 Visceral Fat Rating 2.0 Body Water % 54.8 Body Water Mass 73.4 Muscle Mass/Score 97.4 Basal Metabolic Rate/Score 1,379 Intake Visit Reasons: (OV) PO LSG 01/03/24 Allergies avocado Allergy (Severe, Verified 10/30/24 12:35) Itching adhesive tape Allergy (Mild, Verified 10/30/24 12:35) Rash sertraline Allergy (Unknown, Verified 10/30/24 12:35) Rash HPI Comments Details: This?is a?33?yo female who is s/p LSG 01/03/2024. Presents for 10 month post op visit. Weight loss of 2lbs since last OV 3mo ago.? No complaints of nausea, emesis, abdominal pain or reflux, or constipation. Present meal plan includes: using [employer]s liudmila sometimes 3 Premier shakes with half scoop 1.5 bar sometimes with the option to add a meal takes MVI Exercise routine includes: treadmill at the gym 65min, 500-670 calories 5x week for [id number] serg/week - pt reports less gym lately, has been having leg numbness and was seen by PCP, labs ordered, might need neurology referral - did sign up for [employer] Pt reports issues of excess skin of abdomen. Has started experiencing a rash around belly button. Has tried rubbing alcohol and topical antifungal, has tried to keep clean and dry. Has also tried KT tape to keep skin elevated but this has not helped. Pt has started wearing pants with compressive/high waisted waistband to help hold excess skin in place to try to prevent discomfort. Walking is difficult due to the skin folds rubbing together with movement and causing pain. Also reports excess skin of thighs, increasing chafing and irritation. Excess skin gets in the way of typical daily activities like bending down, skin gets pinched. Walking is more difficult due to the skin rubbing together and chafing, causing pain with normal movement. Also reports excess skin of upper arms, increasing chafing and irritation. Excess skin gets in the way of typical daily activities, like walking when arms swing and rub against the torso. [facility] Medical History BMI 38.0-38.9,adult Vaccine counseling Laboratory tests ordered as part of a complete physical exam (CPE) Encounter for weight management BMI 40.0-44.9, adult Vaginal itching Normal physical exam Hx of Hypothyroidism Sleep apnea Graves disease Depression Anxiety Surgical History Hx of laparoscopic partial gastrectomy History of surgery History of wisdom tooth extraction History of sinus surgery Family History Father No family history of mental disorder Diabetes Mother No family history of mental disorder Breast cancer Daughter No problems noted. Daughter No problems noted. Son No problems noted. 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 Sexual orientation: Straight/Heterosexual Gender identity: Female Cognitive needs: No Hearing needs: No Vision needs: No Physical Exam Vital Signs: Last Vital Signs Temp 98.4 F 10/30/24 12:37 Pulse 78 10/30/24 12:37 BP 138/87 10/30/24 12:37 Pulse Ox 100 10/30/24 12:37 Oxygen Delivery Method Room Air 10/30/24 12:37 BMI result Body Mass Index 23.0 Const General: cooperative, comfortable and no acute distress Orientation/consciousness: patient oriented x3 GI Other: soft, nontender, nondistended, incisions well healed, no hernia, no masses, grade II pannus Skin Other: excess skin of thighs with multiple skin folds particularly at inner thighs, thighs touch from knee to bottom of pelvis Neuro General: patient oriented x3 Assessment & Plan Assessment & Plan (1) Excess skin: Code(s): L98.7 - Excessive and redundant skin and subcutaneous tissue Category: Medical (2) S/P laparoscopic sleeve gastrectomy: Code(s): Z98.84 - Bariatric surgery status Category: Medical Plan Pt doing well on current meal plan, maintaining healthy weight. Having problems of excess skin of both abdomen and upper thighs resulting in rashes, chafing, discomfort, limited activites of daily living. Topical Rx treatment and conservative measures have not been effective at relieving her pain and discomfort. She would benefit from panniculectomy and thighplasty. RTC 2 months for annual, can take photos at that time. I spent a total of 30 minutes reviewing/updating records, examining the patient and counseling the patient on weight management as detailed above.
[2024-10-30 12:37] VITALS: BP 138/87; PULSE 78; TEMP 36.9; O2SAT 100; BMI 23.0
== END 2024-10-30 13:03 | disposition home or self-care (01) ==
PROVIDERS: PCP Nurse Practitioner Family; Visit Provider Physician Assistant Surgical
DX: L98.7 Excessive and redundant skin and subcutaneous tissue (principal); Z98.84 Bariatric surgery status
CPT/HCPCS: 99214

== ENCOUNTER 2024-11-08 08:00 | Outpatient (AMB) | payer BC, SELFPAY ==
[2024-11-08 08:04] VITALS: BP 118/78; PULSE 54; O2SAT 96; BMI 23.8
--- NOTE | 2024-11-08 08:04 | A.OFFVIS_ITS ---
Vital Signs 11/08/24 08:04 Height 5 ft 4 in Weight 138 lb 10.732 oz BMI 23.8 BP 118/78 Blood Pressure Location Lt brachial Position Sitting Pulse 54 Pulse Source Pulse Oximeter Pulse Oximetry (%) 96 Oxygen Delivery Method Room Air Intake Visit Reasons: Thyroid Intake Note: Patient present today for Hypothyroidism follow up visit. Brand Marketing Coordinator Required: No Accompanied by: Self / Same As Patient Allergies avocado Allergy (Severe, Verified 11/08/24 08:10) Itching adhesive tape Allergy (Mild, Verified 11/08/24 08:10) Rash sertraline Allergy (Unknown, Verified 11/08/24 08:10) Rash Medication List - Last Reconciled 11/08/24 by Tj Carey MD bupropion HCl XL 300 mg PO DAILY clonidine HCl 0.1 mg PO BEDTIME docusate sodium (Colace) 100 mg PO DAILY gabapentin 100 mg PO DAILY 30 days levothyroxine 125 mcg PO DAILY loratadine (Claritin) 10 mg PO DAILY multivitamin 1 tab PO DAILY vitamin A palmitate 10,000 units PO DAILY HPI Comments Details: 33 YO F with PMHx hypothyroidism who is seen in consultation at the request of his PCP for Hyothyroidism. At age 14 had Grave's DX S/P I-131 with post-ablative hypothyroidism Currently using thyroid hormone. On Levothyroxine on 125 ug Has fatigue, weight gain, cold intolerance, dry skin, hair loss, constipation. There is no hx of hyperlipidemia . Denies obstructive sx of goiter . Denies consuming any kelp or seaweed. Denies taking amiodarone. Denies current or desiring to become in near future. Menses: nl Biotin: yes Family hx of thyroid dx: No Labs: Recently had sleeve gastrectomy and lost a good deal weight [facility] Medical History BMI 38.0-38.9,adult Vaccine counseling Laboratory tests ordered as part of a complete physical exam (CPE) Encounter for weight management BMI 40.0-44.9, adult Vaginal itching Normal physical exam Hx of Hypothyroidism Sleep apnea Graves disease Depression Anxiety Surgical History Hx of laparoscopic partial gastrectomy History of surgery History of wisdom tooth extraction History of sinus surgery Family History Father No family history of mental disorder Diabetes Mother No family history of mental disorder Breast cancer Daughter No problems noted. Daughter No problems noted. Son No problems noted. 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 There are no thyroid nodules palpated Assessment & Plan Assessment & Plan (1) Hypothyroidism: Code(s): E03.9 - Hypothyroidism, unspecified Category: Medical Plan: This is a 32-year-old white female with history of post-ablative hypothyroidism be replaced on 125 mcg levothyroxine She appears to be clinically and biochemically euthyroid Plan is to continue the current therapy. At this point, patient returned to the care of her primary care provider and returned back to endocrinology as necessary Coding Level of Care Code Est Pt Level 3 (55318) Diagnoses Hypothyroidism E03.9
--- OUTSIDE RECORDS SUMMARY | 2024-11-08 08:04 | XMS_ITS | Continuity of Care Document ---
Author Organization [facility] Address [address] [place] [address] Phone Care Team Providers Care Cabana Attendant Name Role Phone Mark Ray OD Unavailable [...] Diagnoses Date Provider Providers Copied on Encounter [facility], [address] [place] [address], [id number], tel:[phone] [facility] [employer] [facility], bilateral Cory Flores. [address] [place] [address], [facility], . tel:[phone] Referring Provider: Mark Ray, [address] [place] [address], [facility]. tel:[phone] Family History Family Member Type Diagnosis Age At Onset Multiple Problem (finding) Cancer Father Problem (finding) Diabetes Payers Payer name Insurance type Covered constitution party ID Authoriza tion(s) [facility] Medicaid [id number] Social History Type Description Quantity Date Captured [...]
--- OUTSIDE RECORDS SUMMARY | 2024-11-08 08:04 | XMS_ITS | Continuity of Care Document ---
Author Organization [facility] Address [address] [place] [address] Phone Care Team Providers Care Supervisor [employer] Education Name Role Phone Unavailable Unavailable Unavailable Advance Directives Directive Yes / No Effective Date File Name No Information Encounters Encounter Description Practice Location Reason(s) For Visit Diagnoses Date Provider Providers Copied on Encounter [facility] (roll[facility]) [facility], [address], [place], [address], [place] tel:[phone] [id number] ER No Information 201 6 No Information Referring Provider: ELEAZAR Sierra, [address], [place], [address]. Family History Family Member Type Diagnosis Age At Onset No Information Payers Payer name Insurance type Covered libertarian ID Authoriza tion(s) [facility] [id number] Social History Type Description Quantity Date Captured Comments Sex Female Smoking Status No Information Chief Complaint And Reason For Visit No Information History Of Present Illness Encounter Date Complaint History Of Prese nt Illness No Information Instructions Date Instruction Additional Infor mation No Information Assessments Type Assessment Date No Information
== END 2024-11-08 08:25 | disposition home or self-care (01) ==
PROVIDERS: PCP Nurse Practitioner Family; Visit Provider Internal Medicine Endocrinology, Diabetes & Metabolism
DX: E03.9 Hypothyroidism, unspecified (principal)
CPT/HCPCS: 99213

== ENCOUNTER 2024-11-26 10:13 | Outpatient (AMB) | payer BC, SELFPAY ==
--- NOTE | 2024-11-26 10:15 | A.OFFPC_ITS ---
Vital Signs 11/26/24 10:22 Height 5 ft 4 in Weight 135 lb BMI 23.2 BP 127/81 Blood Pressure Location Lt brachial Position Sitting Respiration 16 Pulse 71 Pulse Source Auscultation Temp 98.2 F Temp Source Oral Pulse Oximetry (%) 100 Oxygen Delivery Method Room Air Intake Visit Reasons: Physical Intake Note: patient here for CPE and follow up on her leg issue Transcription Specialist Required: No Is last menstrual period known: Yes Last menstrual period: 11/18/24 Post menopausal: No Patient : No Allergies avocado Allergy (Severe, Verified 11/26/24 10:33) Itching adhesive tape Allergy (Mild, Verified 11/26/24 10:33) Rash sertraline Allergy (Unknown, Verified 11/26/24 10:33) Rash Medication List - Last Reconciled 11/26/24 by Migue Sanderson CNP bupropion HCl XL 300 mg PO DAILY clonidine HCl 0.1 mg PO BEDTIME docusate sodium (Colace) 100 mg PO DAILY gabapentin 100 mg PO DAILY 30 days levothyroxine 125 mcg PO DAILY loratadine (Claritin) 10 mg PO DAILY multivitamin 1 tab PO DAILY vitamin A palmitate 10,000 units PO DAILY Tobacco use date assessed: 11/26/24 Dental Screening Dental Screen Date: 11/26/24 Did you have a dental visit in the last 12 months?: Yes Did you have a dental problem in the last 6 months where you did not have access to dental care?: No Was dental information given to patient?: Patient has dentist HPI HPI Comments History of Present Illness Details 34-year-old female presents for RLE numb ness follow up. She has been experiencing persistent numbness to the middle of her knee right calm to her foot. Sensation is diminished but not lost. No tingling. Her symptoms have been ongoing since July 2024. No fall, injury, or trauma. No improvement with gabapentin. She reports right ankle pain. She missed a step, rolled her right ankle, and fell while going down her stairs this morning. She did not hit her head, neck, or back. [facility] Medical History BMI 38.0-38.9,adult Vaccine counseling Laboratory tests ordered as part of a complete physical exam (CPE) Encounter for weight management BMI 40.0-44.9, adult Vaginal itching Normal physical exam Hx of Hypothyroidism Sleep apnea Graves disease Depression Anxiety Surgical History Hx of laparoscopic partial gastrectomy History of surgery History of wisdom tooth extraction History of sinus surgery Family History Father No family history of mental disorder Diabetes Mother No family history of mental disorder Breast cancer Daughter No problems noted. Daughter No problems noted. Son No problems noted. 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 1. Little interest or pleasure in doing things: more than half the days 2. Feeling down, depressed, or hopeless: more than half the days 3. Trouble falling or staying asleep, or sleeping too much: more than half the days 4. Feeling tired or having little energy: nearly every day 5. Poor appetite or overeating: more than half the days 6. Feeling bad about yourself - or that you are a failure or have let yourself or your family down: more than half the days 7. Trouble concentrating on things, such as reading the newspaper or watching television: several days 8. Moving or speaking so slowly that other people could have noticed. Or the opposite - being so fidgety or restless that you have been moving around a lot more than usual: not at all 9. Thoughts that you would be better off or of hurting yourself in some way: not at all Total score: 14 Depression Screening Interpretation: Positive Depression Screening Done: Yes Source: Developed by Drs. Tj Sr, Gabbi Andrea, Rafa Ellis and colleagues, with an educational chen from [employer]. Thrive Questionnaire Date Thrive assessed: 11/26/24 I am a: Patient What is your living situation today?: I have a steady place to live Within the past 12 months, did the food you bought not last and you didn't have the money to get more?: Sometimes True Within the past 12 months, did you worry whether your food would run out before you got money to buy more?: Often true Do you have trouble paying for medicines?: Yes Do you have trouble getting transportation to medical appointments?: No Do you have trouble paying your heating and electricity bill?: Yes Do you have trouble taking care of your child, family member or friend?: No Do you have trouble with day-to-day activities such as bathing, preparing meals, shopping, managing finances, etc.?: No Are you currently unemployed and looking for a job?: No Are you interested in more education?: Yes Please select the resources that you would like help with: Education Currently or been in a relationship where the following occur: No concerns reported THRIVE Score: 3 AUDIT C Alcohol Use Questionnaire (AUDIT-C) 1. How often do you have a drink containing alcohol?: 2-4 times a month 2. How many drinks containing alcohol do you have on a typical day when you are drinking?: 1 or 2 3. How often do you have six or more drinks on one occasion?: Never Total Score: 2 FEROZ-7 AMB Questionnaire FEROZ-7 Date FEROZ - 7 assessed: 11/26/24 Feeling nervous, anxious, or on edge: 2 = More than half the days Not being able to stop or control worryin = More than half the days Worrying too much about different things: 2 = More than half the days Trouble relaxin = More than half the days Being so restless that it is hard to sit still: 0 = Not at all Becoming easily annoyed or irritable: 3 = Nearly every day Feeling afraid as if something awful might happen: 0 = Not at all Total FEROZ-7 score (0-4 normal; 5-9 mild; 10-14 moderate; 15-21 severe): 11 Source: Developed by Drs. Tj Sr, Gabbi Andrea, Rafa Ellis and colleagues, with an educational chen from [employer]. FEROZ-7 Assessment Billing FEROZ-7 Assessment Tool: FEROZ-7 Assessment 86374 Review of Systems Const Details: Const Denies chills, Denies fatigue, Denies fever(s), Denies headache(s) and Denies weakness ENT Denies dizziness and Denies headache(s) Card Denies chest pain, Denies lightheadedness, Denies dyspnea and Denies other (Palpitations) Resp Denies cough, Denies dyspnea, Denies wheezing and Denies other ( shortness of breath) GI Denies abdominal pain, Denies melena, Denies hematochezia, Denies change in bowel habits, Denies dyspepsia and Denies nausea Denies hematuria and Denies dysuria Musc Reports as per HPI. Skin/Breast Denies rash, Denies unusual bruising and Denies wounds Neuro Denies abnormal gait, Denies dizziness, Denies headache(s), Denies memory loss, Reports numbness, Reports Sensory deficit (Neuro), Denies tingling and Denies weakness Psych Denies anxiety, Denies depression, Denies memory loss Endo Denies cold intolerance, Denies fatigue, Denies heat intolerance, Denies polydipsia and Denies polyuria Aller/Immun Denies wheezing Physical exam (Primary Care) Vital Signs: Last Vital Signs Temp 98.2 F 11/26/24 10:22 Pulse 71 11/26/24 10:22 Resp 16 11/26/24 10:22 BP 127/81 11/26/24 10:22 Pulse Ox 100 11/26/24 10:22 Oxygen Delivery Method Room Air 11/26/24 10:22 BMI result Body Mass Index 23.2 Tobacco/Smoking Status: Tobacco use Status Tobacco use date assessed 11/26/24 11/26/24 10:30 Patient Tobacco Use Status Former Tobacco user 11/26/24 10:19 e-Cigarette/Vaping Use Never Used 11/26/24 10:19 PHQ-9: PHQ-9 Score PHQ-9: Total score 14 11/26/24 10:30 Depression Screening Interpretation: Positive Thrive Assessment: Date of Thrive Assessment Date Thrive assessed 11/26/24 11/26/24 10:30 Currently or been in a relationship where the following occur: No concerns reported Const Other: General: no acute distress and well developed Nutritional Appearance: well nourished Orientation/consciousness: patient oriented x3 [facility] Head: Yes normocephalic and Yes atraumatic Eyes General: appearance normal, both eyes and all related structures Pupils: Equal, round and reactive pupils present EOM: EOMs intact bilaterally Resp Effort & Inspection: normal respiratory effort Auscultation: clear to auscultation bilaterally Cardio Rate: regular rate Rhythm: regular rhythm Heart sounds: S1 normal heart sound present, S2 normal heart sound present, no gallops, no murmurs and no rubs GI Palpation (GI): No Abdominal aortic bruit present, Soft to palpation, nontender, No hepatosplenomegaly present and No Rebound tenderness present Auscultation: normal bowel sounds General: Yes no CVA tenderness Back/Spine/Pelvis Back: no CVA tenderness Cervical Spine: cervical ROM normal and No Cervical spine tenderness Thoracic/Lumbar Spine: thoraco-lumbar ROM normal, No pain with thoraco-lumbar ROM, No thoracic spinal tenderness and No lumbar spinal tenderness Extrem General: Yes normal to inspection, No calf tenderness, Normal ROM of the right ankle, mild edema of the right lateral malleolus Skin General: warm and dry. Normal skin color. Normal skin turgor Neuro General: patient oriented x3, gait normal and no focal neuro deficit Cranial nerves: Yes Equal, round and reactive pupils present Cognition (Neuro): normal cognition Gait exam (Neuro): Normal gait present Sensory Exam: No Sensory deficit (Neuro) Psych Appearance: grossly normal Affect: normal affect Attitude: cooperative Thought process: Normal thought process present Coding Level of Care Code Est Pt Level 4 (03148) Diagnoses Numbness of right lower extremity R20.0 Right ankle pain M25.571 Additional Codes FEROZ-7 Assessment Billing - FEROZ-7 Assessment Tool: FEROZ-7 Assessment 61560 ([id number]) Assessment & Plan Assessment & Plan (1) Numbness of right lower extremity: Code(s): R20.0 - Anesthesia of skin Category: Medical Plan: Persistent numbness to the middle of her knee right calm to her foot. Sensation is diminished but not lost. No tingling. Her symptoms have been ongoing since July 2024. No fall, injury, or trauma. No improvement with gabapentin. Recent lab results are unremarkable. Will increase gabapentin to 300 mg at night; advised to take as prescribed. Referred to neurology for further workup. She is due for an extended physical exam after 11/28/2024. Follow-up for an extended physical exam or return sooner with symptoms or concerns. Verbalized understanding and agreed with treatment plan. (2) Right ankle pain: Code(s): M25.571 - Pain in right ankle and joints of right foot Category: Medical Plan: Normal ROM of the right ankle, mild edema of the right lateral malleolus. Get is steady. May take Tylenol for pain or discomfort. Cool compresses encouraged. Follow-up with worsening or new symptoms. Verbalized understanding and agreed with treatment plan. Orders: Referrals Neurology Referral R20.0 - Anesthesia of skin Medications: New gabapentin 300 mg PO BEDTIME 30 days 30 caps 3RF Discontinued gabapentin Discontinued Reason: Doctor's Order 100 mg PO DAILY 30 days 30 tabs 0RF
[2024-11-26 10:22] VITALS: BP 127/81; PULSE 71; RESP 16; TEMP 36.8; O2SAT 100; BMI 23.2
== END 2024-11-26 10:46 | disposition home or self-care (01) ==
LOC: HO.HMCFM 10:13
PROVIDERS: PCP Nurse Practitioner Family; Visit Provider Nurse Practitioner Family
DX: R20.0 Anesthesia of skin (principal); M25.571 Pain in right ankle and joints of right foot

== ENCOUNTER → 2024-11-26 10:13 | Outpatient (BNVA) | payer BC, SELFPAY | PROVIDERS: PCP Nurse Practitioner Family; Visit Provider Nurse Practitioner Family | DX: Z00.00 Encounter for general adult medical examination without abnormal findings (principal); R20.0 Anesthesia of skin; M25.571 Pain in right ankle and joints of right foot | CPT/HCPCS: 96127 ==

== ENCOUNTER 2024-12-14 07:51 | Outpatient (AMB) | payer BC, SELFPAY ==
--- NOTE | 2024-12-14 08:03 | MHC.PC.OV ---
Vital Signs 12/14/24 08:09 Height 5 ft 4.5 in Weight 136 lb 2 oz BMI 23.0 BP 118/74 Blood Pressure Location Rt brachial Position Sitting Respiration 16 Pulse 69 Pulse Source Pulse Oximeter Temp 98.2 F Temp Source Oral Pulse Oximetry (%) 98 Oxygen Delivery Method Room Air Intake Visit Reasons: Physical Intake Note: patient here for CPE Brothel Keeper Required: No Is last menstrual period known: Yes Last menstrual period: 12/13/24 Post menopausal: No Patient : No Allergies avocado Allergy (Severe, Verified 12/14/24 08:15) Itching adhesive tape Allergy (Mild, Verified 12/14/24 08:15) Rash sertraline Allergy (Unknown, Verified 12/14/24 08:15) Rash Medication List - Last Reconciled 12/14/24 by Migue Sanderson CNP bupropion HCl XL 300 mg PO DAILY clonidine HCl 0.1 mg PO BEDTIME docusate sodium (Colace) 100 mg PO DAILY gabapentin 300 mg PO BEDTIME 30 days levothyroxine 125 mcg PO DAILY loratadine (Claritin) 10 mg PO DAILY multivitamin 1 tab PO DAILY vitamin A palmitate 10,000 units PO DAILY Tobacco use date assessed: 12/14/24 Dental Screening Dental Screen Date: 12/14/24 Did you have a dental visit in the last 12 months?: Yes Did you have a dental problem in the last 6 months where you did not have access to dental care?: No Was dental information given to patient?: Patient has dentist HPI HPI Comments History of Present Illness Details 34-year-old female presents for an extended physical exam. She admits to taking her medications as prescribed without adverse reactions. Acute issue(s) - Anxiety, depression: She notes that her anxiety and depressive symptoms are generally well controlled. She is on Bupropion 300 mg daily and clonidine 0.1 mg at bedtime. She is followed by Psychiatry. - Reports numbness to right leg, from mid calf to top of right foot. She is on Gabapentin 300 mg at night. She has an appointment with [facility] neurolog[facility] in 04/2024 and requests a referral to another practice for an earlier appointment. - Reports constant achy pain to her right ankle since she missed a step, rolled her right ankle, and fell while going down her stairs almost 3 weeks ago. She takes Ibuprofen as needed and the pain is improving. Past Medical History - Sleep apnea, hypercholesterolemia, obesity, hypothyroidism, anxiety, and depression Social History - Former smoker, smoked an average of 2 cigarettes daily for 16.5 years, quit 7 years ago. Does not vape. Drinks 2-3 beers twice monthly. Denies recreational drug use - Has been making healthy dietary choices. Exercises routinely. Generally sleep well Health maintenance - Last eye exam was in 10/2024 at [facility]. She will sign a consent for PCP to obtain her ophthalmology record - Last dental visit was within the last 6 months - Last Tdap was 7 years ago - Has not been vaccinated for the flu this season; declines vaccination - Last pap smear test was within the last 6 months with [facility]. Record not available [facility] Medical History BMI 38.0-38.9,adult Vaccine counseling Laboratory tests ordered as part of a complete physical exam (CPE) Encounter for weight management BMI 40.0-44.9, adult Vaginal itching Normal physical exam Hx of Hypothyroidism Sleep apnea Graves disease Depression Anxiety Surgical History Hx of laparoscopic partial gastrectomy History of surgery History of wisdom tooth extraction History of sinus surgery Family History Father No family history of mental disorder Diabetes Mother No family history of mental disorder Breast cancer Daughter No problems noted. Daughter No problems noted. Son No problems noted. 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 1. Little interest or pleasure in doing things: several days 2. Feeling down, depressed, or hopeless: several days 3. Trouble falling or staying asleep, or sleeping too much: not at all 4. Feeling tired or having little energy: nearly every day 5. Poor appetite or overeating: more than half the days 6. Feeling bad about yourself - or that you are a failure or have let yourself or your family down: several days 7. Trouble concentrating on things, such as reading the newspaper or watching television: several days 8. Moving or speaking so slowly that other people could have noticed. Or the opposite - being so fidgety or restless that you have been moving around a lot more than usual: not at all 9. Thoughts that you would be better off or of hurting yourself in some way: not at all Total score: 9 Depression Screening Interpretation: Positive Depression Screening Follow-up: Existing condition and In treatment Depression Screening Done: Yes 52330 - PHQ-9 Billing: Yes Source: Developed by Drs. Tj Sr, Gabbi Andrea, Rafa Ellis and colleagues, with an educational chen from [employer]. Thrive Questionnaire Date Thrive assessed: 12/14/24 I am a: Patient What is your living situation today?: I have a steady place to live Within the past 12 months, did the food you bought not last and you didn't have the money to get more?: Sometimes True Within the past 12 months, did you worry whether your food would run out before you got money to buy more?: Often true Do you have trouble paying for medicines?: Yes Do you have trouble getting transportation to medical appointments?: No Do you have trouble paying your heating and electricity bill?: Yes Do you have trouble taking care of your child, family member or friend?: Yes Do you have trouble with day-to-day activities such as bathing, preparing meals, shopping, managing finances, etc.?: No Are you currently unemployed and looking for a job?: No Are you interested in more education?: No Please select the resources that you would like help with: Utilities Currently or been in a relationship where the following occur: I choose not to answer THRIVE Score: 3 AUDIT C Alcohol Use Questionnaire (AUDIT-C) 1. How often do you have a drink containing alcohol?: 2-3 times a week 2. How many drinks containing alcohol do you have on a typical day when you are drinking?: 1 or 2 3. How often do you have six or more drinks on one occasion?: Less than monthly Total Score: 4 Score Reviewed/Action Taken: Yes FEROZ-7 AMB Questionnaire FEROZ-7 Date FEROZ - 7 assessed: 12/14/24 Feeling nervous, anxious, or on edge: 1 = Several days Not being able to stop or control worryin = More than half the days Worrying too much about different things: 2 = More than half the days Trouble relaxin = Nearly every day Being so restless that it is hard to sit still: 0 = Not at all Becoming easily annoyed or irritable: 3 = Nearly every day Feeling afraid as if something awful might happen: 1 = Several days Total FEROZ-7 score (0-4 normal; 5-9 mild; 10-14 moderate; 15-21 severe): 12 Source: Developed by Drs. Tj Sr, Gabbi Andrea, Rafa Ellis and colleagues, with an educational chen from [employer]. FEROZ-7 Assessment Billing FEROZ-7 Assessment Tool: FEROZ-7 Assessment 03502 Review of Systems Const Details: Denies chills, Denies fatigue, Denies fever(s), Denies headache(s) and Denies weakness HEENT Denies change in vision, Denies dizziness, Denies headache(s), Denies hearing loss, Denies nasal congestion, Denies sinus pain, Denies sinus pressure and Denies sore throat Card Denies chest pain, Denies lightheadedness, Denies dyspnea and Denies other (palpitations) Resp Denies cough, Denies dyspnea and Denies wheezing GI Denies abdominal pain, Denies melena, Denies hematochezia, Denies change in bowel habits, Denies dyspepsia and Denies nausea Denies hematuria and Denies dysuria Musc Reports right ankle pain, Denies abnormal gait, Denies numbness and Denies tingling Skin/Breast Denies rash, Denies unusual bruising and Denies wounds Neuro Reports right leg numbness, Denies abnormal gait, Denies dizziness, Denies headache(s), Denies memory loss, Denies Sensory deficit (Neuro), Denies tingling and Denies weakness Psych Denies anxiety, Denies depression and Denies memory loss Endo Denies cold intolerance, Denies fatigue, Denies heat intolerance, Denies polydipsia and Denies polyuria Aly/Lymph Denies easy bleeding and Denies easy bruising Aller/Immun Denies wheezing Physical exam (Primary Care) Vital Signs: Last Vital Signs Temp 98.2 F 12/14/24 08:09 Pulse 69 12/14/24 08:09 Resp 16 12/14/24 08:09 BP 118/74 12/14/24 08:09 Pulse Ox 98 12/14/24 08:09 Oxygen Delivery Method Room Air 12/14/24 08:09 BMI result Body Mass Index 23.0 Tobacco/Smoking Status: Tobacco use Status Tobacco use date assessed 12/14/24 12/14/24 08:15 Patient Tobacco Use Status Former Tobacco user 12/14/24 08:07 e-Cigarette/Vaping Use Never Used 12/14/24 08:07 PHQ-9: PHQ-9 Score PHQ-9: Total score 9 12/14/24 08:25 Depression Screening Interpretation: Positive Depression Screening Follow-up: Existing condition and In treatment Thrive Assessment: Date of Thrive Assessment Date Thrive assessed 12/14/24 12/14/24 08:15 Currently or been in a relationship where the following occur: I choose not to answer Const Other: General: no acute distress, well developed, alert and awake Nutritional Appearance: well nourished Orientation/consciousness: patient oriented x3 HENMT Head: Yes normocephalic and Yes atraumatic Ears: hearing grossly normal bilaterally and TM's normal bilaterally General nose exam: Normal external nose present and Normal nares present Mouth: Normal oral and palatal mucosa present and moist mucous membranes Teeth and gingiva: dentition normal Throat: Yes oropharynx normal Eyes Pupils: Equal, round and reactive pupils present and Pupil accommodation reflex normal EOM: EOMs intact bilaterally Neck Neck: Yes normal visual inspection, Yes no lymphadenopathy and Yes trachea midline Thyroid: Thyroid normal Carotids: no bruits Lymphatic: no lymphadenopathy noted Chest Chest palpation & inspection: normal inspection of the chest Resp Effort & Inspection: normal respiratory effort Auscultation: clear to auscultation bilaterally Cardio Rate: regular rate Rhythm: regular rhythm Heart sounds: S1 normal heart sound present, S2 normal heart sound present, no gallops, no murmurs and no rubs Bruits: no abdominal aortic bruits and no carotid bruits GI Palpation (GI): No Abdominal aortic bruit present, Soft to palpation, nontender, No hepatosplenomegaly present and No Rebound tenderness present Auscultation: normal bowel sounds General: Yes no CVA tenderness Back/Spine/Pelvis Back: no CVA tenderness Cervical Spine: cervical ROM normal and No Cervical spine tenderness Thoracic/Lumbar Spine: thoraco-lumbar ROM normal, No pain with thoraco-lumbar ROM, No thoracic spinal tenderness and No lumbar spinal tenderness Skin General: warm and dry. Normal skin color. Normal skin turgor Lesions: no lesions Rashes: no rashes Trauma: no lacerations or abrasions Wounds: no wounds Nails: normal Neuro General: patient oriented x3, gait normal and CN's II-XI intact bilaterally Cranial nerves: Yes Equal, round and reactive pupils present Cognition (Neuro): normal cognition Gait exam (Neuro): Normal gait present Motor exam (neuro): 5/5 motor strength present throughout Sensory Exam: No Sensory deficit (Neuro) Deep tendon reflexes (DTR's): Right patellar reflex intensity grade: 2+ and Left patellar reflex intensity grade: 2+ Extrem General: Yes normal to inspection, No calf tenderness. Mild or ankle edema and tenderness to palpation of the right malleolus, no erythema or overt injury or trauma. Psych Appearance: grossly normal Affect: normal affect Attitude: cooperative Thought process: Normal thought process present Coding Level of Care Code Est Pt Level 4 (91174) Est Pt Prev Care 18-39y(29042) Diagnoses Normal physical examination, routine Z00.00 Numbness of right lower extremity R20.0 Right ankle pain M25.571 Anxiety and depression F41.9; F32.A Additional Codes FEROZ-7 Assessment Billing - FEROZ-7 Assessment Tool: FEROZ-7 Assessment 57199 ([id number]) PHQ-9 - 01187 - PHQ-9 Billing: Yes ([id number]) Assessment & Plan Assessment & Plan (1) Normal physical examination, routine: Code(s): Z00.00 - Encounter for general adult medical examination without abnormal findings Category: Medical Plan: No significant functional limitation noted. Healthy diet and routine exercise encouraged. Advised to fast for 10-12 hours, may drink water, and perform lipid panel blood work 2-3 days before next visit. Follow-up for telehealth visit in 3 months for hypercholesterolemia. Return sooner with symptoms or concerns. Verbalized understanding and agreed with the plan. (2) Numbness of right lower extremity: Code(s): R20.0 - Anesthesia of skin Category: Medical Plan: Reports numbness to right leg, from mid calf to top of right foot. She is on Gabapentin 300 mg at night. She has an appointment with [facility] neurology in 04/2024 and requests a referral to another practice for an earlier appointment. Continue current treatment regimen. Referred to [facility]. Follow-up with worsening or new symptoms. Verbalized understanding and agreed with the plan. (3) Right ankle pain: Code(s): M25.571 - Pain in right ankle and joints of right foot Category: Medical Plan: Reports constant achy pain to her right ankle since she missed a step, rolled her right ankle, and fell while going down her stairs almost 3 weeks ago. She takes Ibuprofen as needed and the pain is improving. Mild or ankle edema and tenderness to palpation of the right malleolus, no erythema or overt injury or trauma. Continue current treatment regimen. Warm/cool compresses encouraged. X-ray ordered. Will review results and make changes as needed. Follow-up with worsening or new symptoms. Verbalized understanding and agreed with treatment plan. (4) Anxiety and depression: Code(s): F41.9 - Anxiety disorder, unspecified; F32.A - Depression, unspecified Category: Medical Plan: Anxiety, depression: She notes that her anxiety and depressive symptoms are generally well controlled. She is on Bupropion 300 mg daily and clonidine 0.1 mg at bedtime. She is followed by Psychiatry. PHQ-9 and FEROZ-7 scores revealed mild depression and moderate anxiety respectively. Continue current treatment regimen. Follow-up with Psychiatry as planned. Verbalized understanding and agreed with treatment plan. Orders: Orders XR ankle RT 2V Today M25.571 - Pain in right ankle and joints of right foot Lipid Panel 3 Months E78.00 - Pure hypercholesterolemia, unspecified Referrals Neurology Referral R20.0 - Anesthesia of skin
[2024-12-14 08:09] VITALS: BP 118/74; PULSE 69; RESP 16; TEMP 36.8; O2SAT 98; BMI 23.0
== END 2024-12-14 08:33 | disposition home or self-care (01) ==
LOC: HO.HMCFM 07:51
PROVIDERS: PCP Nurse Practitioner Family; Visit Provider Nurse Practitioner Family
DX: Z00.00 Encounter for general adult medical examination without abnormal findings (principal); R20.0 Anesthesia of skin; M25.571 Pain in right ankle and joints of right foot; F41.9 Anxiety disorder, unspecified; F32.A Depression, unspecified

== ENCOUNTER → 2024-12-14 07:51 | Outpatient (BNVA) | payer BC, SELFPAY | PROVIDERS: PCP Nurse Practitioner Family; Visit Provider Nurse Practitioner Family | DX: Z00.00 Encounter for general adult medical examination without abnormal findings (principal); R20.0 Anesthesia of skin; M25.571 Pain in right ankle and joints of right foot; F41.9 Anxiety disorder, unspecified; F32.A Depression, unspecified; Z79.899 Other long term (current) drug therapy | CPT/HCPCS: 96127 ==

== ENCOUNTER 2024-12-15 10:38 | Outpatient (REF) | payer BC, SELFPAY ==
--- NOTE | ~2024-12-15 | XR_ITS ---
CLINICAL HISTORY: M25.571 - Pain in right ankle and joints of right foot Radiographs of the right ankle, 3 views Comparison: None Findings: There is no fracture or dislocation. The ankle mortise is congruent. The joint spaces are preserved without osteophytosis. Large calcaneal spur. Bone mineralization is normal. No soft tissue swelling. Trace calcification distal to the lateral malleolus could be secondary to prior injury. Impression: No acute findings. Trace calcification adjacent to the lateral malleolus could be secondary to prior ligamentous injury. Large calcaneal spur. This document has been electronically signed by: Shelby Mckay MD on 12/17/2024 13:10:31
== END 2024-12-15 10:39 | disposition home or self-care (01) ==
LOC: HO.XRAY 10:38
PROVIDERS: PCP Nurse Practitioner Family; Visit Provider Nurse Practitioner Family
DX: M25.571 Pain in right ankle and joints of right foot (principal)
CPT/HCPCS: 73600

== ENCOUNTER → 2024-12-15 10:42 | Outpatient (BNV) | payer BC, SELFPAY | PROVIDERS: PCP Nurse Practitioner Family; Visit Provider Radiology Diagnostic Radiology | DX: M77.31 Calcaneal spur, right foot (principal) | CPT/HCPCS: 73600 ==

== ENCOUNTER 2025-01-15 12:54 | Outpatient (AMB) | payer BC, SELFPAY ==
--- NOTE | 2025-01-15 13:01 | A.OFFVIS_ITS ---
VS Expanded 01/15/25 13:11 BP 130/90 H Blood Pressure Location Rt brachial Blood Pressure Position Sitting Pulse 74 Pulse Source Pulse Oximeter Temp 97.4 F Temperature Source Temporal Artery Scan Pulse Oximetry 98 Oxygen Delivery Method Room Air Height 5 ft 4 in Weight 129 lb BMI 22.1 Body Fat % 24.4 Body Fat Mass 31.6 Fat Free Mass 97.4 Visceral Fat Rating 3.0 Body Water % 54.0 Body Water Mass 69.6 Muscle Mass/Score 92.6 Basal Metabolic Rate/Score 1,317 Intake Visit Reasons: (OV) PO LSG 01/03/24 Allergies avocado Allergy (Severe, Verified 01/15/25 13:06) Itching adhesive tape Allergy (Mild, Verified 01/15/25 13:06) Rash sertraline Allergy (Unknown, Verified 01/15/25 13:06) Rash Medication List - Last Reconciled 01/15/25 by ANDRES Solares bupropion HCl XL 300 mg PO DAILY clonidine HCl 0.1 mg PO BEDTIME docusate sodium (Colace) 100 mg PO DAILY levothyroxine 125 mcg PO DAILY loratadine (Claritin) 10 mg PO DAILY HPI Comments Details: This?is a?34?yo F who is s/p LSG 01/03/2024. Presents for 1 year post op visit. Weight at last visit on 10/30/2024 was 134.2 pounds, weight today is 129 pounds, representing a 5.2 pound weight loss with a BMI today of 22.2.? No complaints of nausea, emesis, abdominal pain or reflux, or constipation. Present meal plan includes: using [employer] liudmila sometimes 3 Premier shakes with half scoop stopped bars sometimes with the option to add a meal takes MVI Exercise routine includes: treadmill at the gym 65min, 500-670 calories 5x week for [id number] serg/week - pt reports less gym lately, has been having leg numbness and was seen by PCP, labs ordered, might need neurology referral Pt reports issues of excess skin of abdomen. Experiences rashes around belly button. Has tried rubbing alcohol and topical antifungal, has tried to keep clean and dry. Has also tried KT tape to keep skin elevated but this has not helped. Pt has started wearing pants with compressive/high waisted waistband to help hold excess skin in place to try to prevent discomfort. Walking is difficult due to the skin folds rubbing together with movement and causing pain. Also reports excess skin of thighs, increasing chafing and irritation. Excess skin gets in the way of typical daily activities like bending down, skin gets pinched. Walking is more difficult due to the skin rubbing together and chafing, causing pain with normal movement. Also reports excess skin of upper arms, increasing chafing and irritation. Excess skin gets in the way of typical daily activities, like walking when arms swing and rub against the torso. [facility], [facility] Medical History BMI 38.0-38.9,adult Vaccine counseling Laboratory tests ordered as part of a complete physical exam (CPE) Encounter for weight management BMI 40.0-44.9, adult Vaginal itching Normal physical exam Hx of Hypothyroidism Sleep apnea Graves disease Depression Anxiety Surgical History Hx of laparoscopic partial gastrectomy History of surgery History of wisdom tooth extraction History of sinus surgery Family History Father No family history of mental disorder Diabetes Mother No family history of mental disorder Breast cancer Daughter No problems noted. Daughter No problems noted. Son No problems noted. 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 TBWL 46.8% with initial starting weight in our program 242.4. Having problems of excess skin of both abdomen and upper thighs resulting in rashes, chafing, discomfort, limited activites of daily living including walking without pain. Topical Rx treatment and conservative measures have not been effective at relieving her pain and discomfort. She would benefit from panniculectomy and thighplasty. Photos taken today, will submit to insurance.
[2025-01-15 13:11] VITALS: BP 130/90; PULSE 74; TEMP 36.3; O2SAT 98; BMI 22.1
== END 2025-01-15 13:42 | disposition home or self-care (01) ==
LOC: HO.HBS 12:55
PROVIDERS: PCP Nurse Practitioner Family; Visit Provider Physician Assistant Surgical
DX: L98.7 Excessive and redundant skin and subcutaneous tissue (principal); Z98.84 Bariatric surgery status
CPT/HCPCS: 99214

== ENCOUNTER → 2025-01-15 12:54 | Outpatient (BNVA) | payer BC, SELFPAY | PROVIDERS: PCP Nurse Practitioner Family; Visit Provider Physician Assistant Surgical ==

== ENCOUNTER 2025-03-07 10:44 | Outpatient (REF) | payer BC, SELFPAY ==
--- OUTSIDE RECORDS SUMMARY | 2018-11-08 03:39 | XMS_ITS | Continuity of Care Document ---
Author Organization [facility] Address [address] [place] [address] Phone Care Team Providers Care Weight Control Engineer Name Role Phone Mark Ray OD Unavailable Unavailable Allergies, Adverse Reactions, Alerts Substance Reaction Status Criticality No Known allergies Medications Medication Instructions Dosage Effective Dates (start - stop) Status Comments 28 mg iron-800 mcg tablet - Active levothyroxine 50 mcg tablet - Ac tive Procedures Procedure Date Comprehensive Eye Exam - New Patient Oct Refractive State Advance Directives Directive Yes / No Effective Date File Name No Information Encounters Encounter Description Practice Location Reason(s) For Visit Diagnoses Date Provider Providers Copied on Encounter [facility], [address] [place] [address], [id number], tel:[phone] [facility], bilateral Cory Flores. [address] [place] [address], [facility], . tel:[phone] Referring Provider: Mark Ray, [address] [place] [address], [facility]. tel:[phone] Family History Family Member Type Diagnosis Age At Onset Multiple Problem (finding) Cancer Father Problem (finding) Diabetes Payers Payer name Insurance type Covered green party ID Authoriza tion(s) [facility] Medicaid [id number] Social History Type Description Quantity Date Captured Comments Alcohol Use Details Unknown Caffeine Use Details Unknown Tobacco Use Status No Information Smoking Status Former smoker Non-Smoking Tobacco Use Details : No Details Available : No Details Available Sex Female Chief Complaint And Reason For Visit No Information Reason For Referral Reason For Referral No Information History Of Present Illness Encounter Date Complaint History Of Prese nt Illness No Information Functional Status Date Functional Assessmen t No Information Instructions Date Instruction Additional Infor jodi 1. 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 Related to Hypermetropia, bilateral - Return in 2 years for a routine glasses refraction with Dr. Ray - sooner if any concerning developments. Assessments Type Assessment Date No Information Patient Care Teams Name Effective Dates (start - stop) Status Members No Information
[2025-03-07 12:09] LABS: Cholesterol 170 mg/dL (<200); HDL Cholesterol 65 mg/dL (>40); LDL Cholesterol Calculated 89 mg/dL (<100); Triglycerides 80 mg/dL (<150)
== END 2025-03-07 10:45 | disposition home or self-care (01) ==
LOC: HO.LAB 10:44
PROVIDERS: PCP Nurse Practitioner Family; Visit Provider Nurse Practitioner Family
DX: E78.00 Pure hypercholesterolemia, unspecified (principal)
CPT/HCPCS: 36415; 80061

== ENCOUNTER 2025-03-11 12:21 | Outpatient (AMB) | payer BC, SELFPAY ==
--- OUTSIDE RECORDS SUMMARY | 2018-11-08 03:39 | XMS_ITS | Continuity of Care Document ---
Author Organization [facility] Address [address] [place] [address] Phone Care Team Providers Care Technology Infusion Specialist Name Role Phone Mark Ray OD Unavailable [...] Diagnoses Date Provider Providers Copied on Encounter [facility], [address] [place] [address], [id number], tel:[phone] [facility], bilateral Cory Flores. [address] [place] [address], [facility], . tel:[phone] Referring Provider: Mark Ray, [address] [place] [address], [facility]. tel:[phone] Family History Family Member Type Diagnosis Age At Onset Multiple Problem (finding) Cancer Father Problem (finding) Diabetes Payers Payer name Insurance type Covered green party ID Authoriza tion(s) [facility] Medicaid [id number] Social History Type Description Quantity Date Captured [...]
--- NOTE | 2025-03-11 12:15 | MHC.PC.OV ---
Intake Visit Reasons: Telehealth 3 mos hypercholesterolemia Intake Note: patient here fro 3 months telehehealth follow up for hypercholesterolemia Post Acute Care Nurse Practitioner Required: No Is last menstrual period known: Yes Last menstrual period: 01/03/25 Post menopausal: No Patient : No Allergies avocado Allergy (Severe, Verified 03/11/25 12:16) Itching adhesive tape Allergy (Mild, Verified 03/11/25 12:16) Rash sertraline Allergy (Unknown, Verified 03/11/25 12:16) Rash Tobacco use date assessed: 03/11/25 Dental Screening Dental Screen Date: 03/11/25 Did you have a dental visit in the last 12 months?: Yes Did you have a dental problem in the last 6 months where you did not have access to dental care?: No Was dental information given to patient?: Patient has dentist HPI HPI Comments History of Present Illness Details 34-year-old female presents for for a telehealth visit for review of recent labs and imaging results. She admits to taking her medications as prescribed without adverse reactions. She continues to experience numbness of the right lower extremity. She stopped taking gabapentin due to drowsiness and sleep disturbance. She has an appointment scheduled with [facility] in April. Her right ankle pain has completely resolved. [facility] Medical History BMI 38.0-38.9,adult Vaccine counseling Laboratory tests ordered as part of a complete physical exam (CPE) Encounter for weight management BMI 40.0-44.9, adult Vaginal itching Normal physical exam Hx of Hypothyroidism Sleep apnea Graves disease Depression Anxiety Surgical History Hx of laparoscopic partial gastrectomy History of surgery History of wisdom tooth extraction History of sinus surgery Family History Father No family history of mental disorder Diabetes Mother No family history of mental disorder Breast cancer Daughter No problems noted. Daughter No problems noted. Son No problems noted. 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 [employer] Sexual orientation: Straight/Heterosexual Gender identity: Female Cognitive needs: No Hearing needs: No Vision needs: No Female Reproductive History Menstrual Date of last menstrual period: 01/03/25 Questionnaire Thrive Questionnaire Date Thrive assessed: 10/19/24 I am a: Patient What is your living situation today?: I have a steady place to live Within the past 12 months, did the food you bought not last and you didn't have the money to get more?: Sometimes True Within the past 12 months, did you worry whether your food would run out before you got money to buy more?: Often true Do you have trouble paying for medicines?: Yes Do you have trouble getting transportation to medical appointments?: No Do you have trouble paying your heating and electricity bill?: Yes Do you have trouble taking care of your child, family member or friend?: Yes Do you have trouble with day-to-day activities such as bathing, preparing meals, shopping, managing finances, etc.?: No Are you currently unemployed and looking for a job?: No Are you interested in more education?: No Please select the resources that you would like help with: Utilities Currently or been in a relationship where the following occur: I choose not to answer THRIVE Score: 3 FEROZ-7 AMB Questionnaire FEROZ-7 Date FEROZ - 7 assessed: 12/14/24 Source: Developed by Drs. Tj Sr, Gabbi Andrea, Rafa Ellis and colleagues, with an educational chen from [employer]. Review of Systems Const Details: Denies chills, Denies fatigue, Denies fever(s), Denies headache(s) and Denies weakness Cardiac Denies chest pain, Denies claudication, Denies leg edema, Denies lightheadedness, Denies palpitations, Denies dyspnea, Denies dyspnea on exertion, Denies orthopnea and Denies other (Loss of consciousness) Resp Denies cough, Denies excessive phlegm production, Denies dyspnea, Denies dyspnea on exertion, Denies snoring and Denies wheezing Neuro Reports RLE numbness Physical exam (Primary Care) Tobacco/Smoking Status: Tobacco use Status Tobacco use date assessed 03/11/25 03/11/25 12:20 Patient Tobacco Use Status Former Tobacco user 03/11/25 12:20 e-Cigarette/Vaping Use Never Used 03/11/25 12:20 Thrive Assessment: Date of Thrive Assessment Date Thrive assessed 10/19/24 03/11/25 12:20 Currently or been in a relationship where the following occur: I choose not to answer Const Other: Patient is alert and oriented x3 Telehealth Telehealth Telehealth Platform: Telephone Location of provider rendering services: practice address Location of patient: address on file Patient Identification confirmed using: Name, : Yes Telehealth method: voice only Patient verbally consented to treatment: Yes Patient verbally consented to billing insurance company: Yes Patient informed of any privacy concerns related to visit: Yes Coding Level of Care Code Tele Est Pt Level 3 (77664) Diagnoses Right ankle pain M25.571 Time Spent (min) 10 Assessment & Plan Assessment & Plan (1) Right ankle pain: Code(s): M25.571 - Pain in right ankle and joints of right foot Category: Medical Plan: Right ankle pain has completely resolved. Recent right ankle x-ray revealed the following: Impression: No acute findings. Trace calcification adjacent to the lateral malleolus could be secondary to prior ligamentous injury. Large calcaneal spur. Follow-up for an extended physical exam in November 2025. Return sooner with symptoms or concerns. Verbalized understanding and agreed with treatment plan. Patient Instructions: Recent lipid panel level is unremarkable. Healthy diet and routine exercise encouraged. Verbalized understanding and agreed with the plan.
== END 2025-03-11 12:45 | disposition home or self-care (01) ==
LOC: HO.HMCFM 12:21
PROVIDERS: PCP Nurse Practitioner Family; Visit Provider Nurse Practitioner Family
DX: M25.571 Pain in right ankle and joints of right foot (principal)

== ENCOUNTER → 2025-03-11 12:21 | Outpatient (BNVA) | payer BC, SELFPAY | PROVIDERS: PCP Nurse Practitioner Family; Visit Provider Nurse Practitioner Family | DX: M25.571 Pain in right ankle and joints of right foot (principal); E78.00 Pure hypercholesterolemia, unspecified | CPT/HCPCS: 98966 ==

== ENCOUNTER 2025-04-25 08:27 | Outpatient (AMB) | payer BC, SELFPAY ==
--- OUTSIDE RECORDS SUMMARY | 2022-09-08 10:41 | XMS_ITS | Encounter Summary ---
Author Organization [facility] Address [address] [address] Phone Care Team Providers Care Montessori Preschool Teacher Name Role Phone Yen Bhakta GAS ENGINE OPERATOR COMPRESSORS Primary Care Provider Encounter Details Date Type Department Care Team (Late st Contact Info) Description 09/08/2022 9:41 AM EST Hospital Encounter [facility] [address] [place] [phone] Melba Singh NP [address] [place] [phone] [email or web address] Social History Tobacco Use Types Packs/Day Years [...] 4:55 PM EDT Bruna Hampton RN * [place] Suicide Severity Rating Scale (Screener/Recent Self-Report) Question [...] report originally createdby Tanner Landaverde. Melba Singh GAS ENGINE OPERATOR COMPRESSORS IMG XR UPPER EXTREMITY Fin al Result documented in this encounter Visit Diagnoses Not on filedocumented in this encounter Additional Health Concerns Infection Onset Date Last Indicated Resolved Time CoV-Risk 08/29/2023 08/29/2023 09/09/2023 1:22 AM EST documented as of this encounter Care Teams Montessori Preschool Teacher Relationship Specialty Start Date End Date Yen Bhakta NP PCP - General Family Medicine 09/08/22 05/25/23 documented as of this encounter Additional Source Comments The information contained in this document represents components of the legal health record. It is not the complete legal health record.[facility]
[2025-04-25 08:28] VITALS: BP 110/60; PULSE 78; O2SAT 98; BMI 23.7
--- NOTE | 2025-04-25 08:28 | MHC.OFFVIS ---
Vital Signs 04/25/25 08:28 Height 5 ft 4 in Weight 138 lb BMI 23.7 BP 110/60 Blood Pressure Location Rt brachial Position Sitting Pulse 78 Pulse Source Pulse Oximeter Pulse Oximetry (%) 98 Oxygen Delivery Method Room Air Intake Visit Reasons: INP-Anesthesia of skin Intake Note: NPV referred by PCP Migue Sanderson for numbness of right of right lower extremity Production Sampler Required: No Accompanied by: Self / Same As Patient Allergies avocado Allergy (Severe, Verified 04/25/25 08:34) Itching adhesive tape Allergy (Mild, Verified 04/25/25 08:34) Rash sertraline Allergy (Unknown, Verified 04/25/25 08:34) Rash HPI Comments Details: 34y/o female comes for evaluation of right leg numbness About 9 mths ago she felt the right lateral leg was numbness.she denies any injury or any recent weight gain . she remembers restarting exercising after a break . she also felt her right leg was heavy and had 1 fall related to this .she feels worse after intense activity she reports intermittent back pain but no radiating pain she denies tingling , or neck pain. she tried gabapentin and saw a chiropractor which did not help.The numbness does not bothe rher. She was obese 264 lbs and December 2023 she had Gastric sleeve and she lost over 100lbs by Jul 2024. [facility] Medical History Back pain Numbness in right leg BMI 38.0-38.9,adult Vaccine counseling Laboratory tests ordered as part of a complete physical exam (CPE) Encounter for weight management BMI 40.0-44.9, adult Vaginal itching Normal physical exam Hx of Hypothyroidism Sleep apnea Graves disease Depression Anxiety Surgical History Hx of laparoscopic partial gastrectomy History of surgery History of wisdom tooth extraction History of sinus surgery Family History Father No family history of mental disorder Diabetes Mother No family history of mental disorder Breast cancer Daughter No problems noted. Daughter No problems noted. Son No problems noted. 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 decreased PP and light touch 2. Neuro Other: decreased light touch and PP in right leg below knee , laterally upper 1/3rd of the leg General: patient oriented x3, gait normal, tone normal, moves all extremities and no focal motor deficits Cranial nerves: Yes Facial sensation intact/muscles of mastication intact, Yes Equal, round and reactive pupils present, Yes Bilaterally intact EOM present, Yes Nystagmus not present, Yes Normal facial strength present, Yes Midline tongue present, Yes Symmetric palate elevation present, Yes Ability to bilaterally rotate head present and Yes Ability to bilaterally elevate shoulders present Cognition (Neuro): normal cognition Gait exam (Neuro): Normal gait present Motor exam (neuro): 5/5 motor strength present throughout and Normal motor muscle tone present throughout Deep tendon reflexes (DTR's): Right triceps reflex intensity grade: 2+, Left triceps reflex intensity grade: 2+, Rt Biceps (C5, C6): 2+, Left biceps reflex intensity grade: 2+, Right brachioradialis reflex intensity grade: 2+, Left brachioradialis reflex intensity grade: 2+, Right patellar reflex intensity grade: 4+, Left patellar reflex intensity grade: 4+, Right ankle reflex intensity grade: 3+ and Left ankle reflex intensity grade: 3+ Coordination: [id number] test normal Assessment & Plan Assessment & Plan (1) Numbness in right leg: Comment: ? peroneal neuropathy ? L5 Code(s): R20.0 - Anesthesia of skin Category: Medical Plan I will evaluate her with EMG NCS MRI L s spine- patient has hyerreflexia - r/o L5 nerve root compression Orders: Orders NE electromyogram (EMG) Today R20.0 - Anesthesia of skin NE nerve conduction velocity Today R20.0 - Anesthesia of skin MR lumbar spine wo con Today M54.9 - Dorsalgia, unspecified Coding Level of Care Code New Pt Level 4 (45921) Diagnoses Numbness in right leg R20.0
== END 2025-04-25 10:12 | disposition home or self-care (01) ==
LOC: HO.HSMS 08:28
PROVIDERS: PCP Nurse Practitioner Family; Visit Provider Psychiatry & Neurology Neurology
DX: R20.0 Anesthesia of skin (principal)
CPT/HCPCS: 99204

== ENCOUNTER → 2025-06-04 08:05 | Outpatient (BNV) | payer BC, SELFPAY | PROVIDERS: PCP Nurse Practitioner Family; Visit Provider Psychiatry & Neurology Neurology | DX: R20.0 Anesthesia of skin (principal) | CPT/HCPCS: 95886; 95910 ==

== ENCOUNTER 2025-06-04 08:11 | Outpatient (REF) | payer BC, SELFPAY ==
--- OUTSIDE RECORDS SUMMARY | 2022-09-08 10:41 | XMS_ITS | Encounter Summary ---
Author Organization [facility] Address [address] [address] Phone Care Team Providers Care Electric Well Logging Operator Name Role Phone Yen Bhakta PRODUCT DEVELOPMENT CARPENTER Primary Care Provider Encounter Details Date Type Department Care Team (Late st Contact Info) Description 09/08/2022 9:41 AM EST Hospital Encounter [facility] [address] [place] [phone] Melba Singh NP [address] [place] [phone] [email or web address] Social History Tobacco Use Types Packs/Day [...] No Risk Indicated 05/05/2023 4:55 PM EDT Burna Hampton RN * [place] Suicide Severity Rating Scale (Screener/Recent Self-Report) Question [...] report originally createdby Tanner Landaverde. Melba Singh PRODUCT DEVELOPMENT CARPENTER IMG XR UPPER EXTREMITY Fin al Result documented in this encounter Visit Diagnoses Not on filedocumented in this encounter Additional Health Concerns Infection Onset Date Last Indicated Resolved Time CoV-Risk 08/29/2023 08/29/2023 09/09/2023 1:22 AM EST documented as of this encounter Care Teams Electric Well Logging Operator Relationship Specialty Start Date End Date Yen Bhakta NP PCP - General Family Medicine 09/08/22 05/25/23 documented as of this encounter Additional Source Comments The information contained in this document represents components of the legal health record. It is not the complete legal health record.[facility]
--- NOTE | 2025-06-04 08:05 | EMG_ITS ---
Chief complaint: Numbness Reason for referral: Numbness right lower extremity Referred by:?Anjana Ortiz MD Procedure done: Right lower extremity NCV/EMG Right tibial and peroneal motor studies were performed right superficial peroneal and sural sensory studies were performed tibial H-reflex was obtained an EMG needle examination was performed. Right superficial peroneal sensory amplitude was significantly diminished with normal conduction velocity. Right peroneal distal latency was slightly prolonged with borderline reduction of amplitude and slow conduction velocity across fibular head. Median and lateral mixed plantars sensory studies revealed reduction of amplitude. 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
--- OUTSIDE RECORDS SUMMARY | 2025-06-04 09:21 | XMS_ITS | Clinical Summary ---
Author Organization [facility] Address [address] [place], [place] [id number] Phone Care Team Providers Care Advanced Practice Provider Name Role Phone Yen Bhakta NP Primary Care Provider Allergies Active Allergy Reactions Criticality Noted Date Comments Other Itching 05/05/2023 avacodo - Strain with breathing Sertraline Rash Low 09/08/2022 Medications buPROPion (WELLBUTRIN XL) 150 MG ER 24 hr tablet Take 150 mg by mouth every morning. 08/23/2022 Active SYNTHROID 175 mcg tablet Take 175 mcg by mouth daily. 08/23/2022 Active metFORMIN (GLUCOPHAGE) 500 MG tablet 04/29/2023 Active metroNIDAZOLE (FLAGYL) 500 MG tablet 02/01/2023 Active escitalopram oxalate (LEXAPRO) 10 MG tablet 06/16/2023 Active albuterol 90 mcg/actuation inhaler Inhale 2 puffs into the lungs every 6 (six) hours as needed for wheezing. 18 g 08/29/2023 Active Active Problems No known active problems Social History Tobacco Use Types Packs/Day Years Used Date Smoking Tobacco: Former Cigarettes Smokeless Tobacco: Never Tobacco Cessation:Counseling Given: Not Answered Education Answer Date Recorded Are you interested [...] on file Sexual Orientation Not on file Last Filed Vital Signs Vital Sign Reading Time Taken Comments Blood Pressure 136/85 08/29/2023 5:16 PM EST Pulse 74 08/29/2023 5:16 PM EST Temperature 36.5 C (97.7 F) 08/29/2023 5:16 PM EST Respiratory Rate 20 08/29/2023 5:16 PM EST Oxygen Saturation 100% 08/29/2023 5:16 PM EST Inhaled Oxygen Concentration - - Weight 115 kg (253 lb 8.5 oz) 05/05/2023 12:29 P M EDT per pt Height - - Body Mass Index - - Plan of Treatment Health Maintenance Due Date Last Done Comments Adult Td,Tdap Booster 1988 CREATININE LEVEL 1988 TSH LEVEL 1988 DEPRESSION SCREENING 2000 SMOKING Hx and SMOKELESS TOB ACCO SCREENING 2001 HEPATITIS C SCREENING 2006 HIV ONE-TIME SCREENING (18-6 5 YEARS) 2006 PAP SMEAR 2009 INFLUENZA VACCINE (#1) 2025 COVID-19 VACCINE (2023-2 5 season) 2025 HEPATITIS A VACCINES Aged Out No long er eligible based on patient's age to complete this topic HIB VACCINES Aged Out No longer eligi ble based on patient's age to complete this topic MENINGOCOCCAL VACCINES (ACWY) Aged Out No longer eligible based on patient's age to complete this topic MENINGOCOCCAL VACCINES (B) Aged Out N o longer eligible based on patient's age to complete this topic PNEUMOCOCCAL VACCINES (0-49 years) Aged Out No longer eligible based on patient's age to complete this topic Medical Devices Not on file Insurance Care Teams Advanced Practice Provider Relationship Specialty Start Date End Date Yen Bhakta NP PCP - General Nurse Practitioner 08/29/23 Additional Source Comments The information contained in this document represents components of the legal health record. It is not the complete legal health record.[facility]
== END 2025-06-04 08:12 | disposition home or self-care (01) ==
LOC: HO.NEURO 08:11
PROVIDERS: PCP Nurse Practitioner Family; Visit Provider Psychiatry & Neurology Neurology
DX: G57.81 Other specified mononeuropathies of right lower limb (principal); R20.0 Anesthesia of skin
CPT/HCPCS: 95886; 95910

== ENCOUNTER 2025-08-06 11:28 | Outpatient (AMB) | payer BC, SELFPAY ==
--- NOTE | 2025-08-05 23:37 | A.OFFVIS_ITS ---
VS Expanded 08/05/25 23:38 Height 5 ft 4 in Weight 138 lb 8 oz BMI 23.8 Intake Visit Reasons: TV Pre Op Panniculectomy 08/20/25 Allergies adhesive tape Allergy (Severe, Verified 08/05/25 23:38) Rash, skin blisters avocado Allergy (Severe, Verified 08/05/25 23:38) Itching, throat tightness sertraline Allergy (Mild, Verified 08/05/25 23:38) Rash Medication List - Last Reconciled 08/05/25 by Samuel Tineo MD bupropion HCl XL 300 mg PO DAILY cephalexin 500 mg PO Q12H clonidine HCl 0.1 mg PO DAILY PRN clonidine HCl ER 0.1 mg PO BEDTIME docusate sodium (Colace) 100 mg PO DAILY docusate sodium (Colace) 100 mg PO DAILY escitalopram oxalate (Lexapro) 10 mg PO DAILY levothyroxine 125 mcg PO DAILY loratadine (Claritin) 10 mg PO DAILY multivitamin with minerals (Hair,Skin and Nails tablet) 1 tab PO DAILY ondansetron 4 mg PO Q12H HPI HPI TV Pre Op Panniculectomy 08/20/25: Details: Start time: 2.30pm, End time: 3pm ?I spent 25 minutes speaking with the patient on the phone plus an additional 5 minutes reviewing and updating records for a total of 30 minutes HPI Comments Details: Overall weight loss: 103.6lbs, or 42.7% TBWL Is doing 3 Premier shakes with HALF scoop each and one meal PFSH Medical History (Updated 08/05/25 @ 23:35 by Samuel Tineo MD) Postgastrectomy malabsorption Back pain Numbness in right leg BMI 38.0-38.9,adult Vaccine counseling Laboratory tests ordered as part of a complete physical exam (CPE) Encounter for weight management BMI 40.0-44.9, adult Vaginal itching Normal physical exam Hx of Hypothyroidism Sleep apnea Graves disease Depression Anxiety Surgical History Hx of laparoscopic partial gastrectomy History of surgery History of wisdom tooth extraction History of sinus surgery Family History Father No family history of mental disorder Diabetes Mother No family history of mental disorder Breast cancer Daughter No problems noted. Daughter No problems noted. Son No problems noted. Other Mental health disorder Social History (Updated 07/30/25 @ 11:35 by Isa Cuadra RN) Household Members: Children Housing: House Are you a primary healthcare or medical to a significant other at home: Yes (4 children) Do you presently have visiting nurse or other home services: No 75 years or older and lives alone: No Alcohol intake: current Alcohol intake frequency: holidays/special occasions only Patient Tobacco Use Status: Former Tobacco user Tobacco use type: Cigarette Cigarettes Per Day: 2 Years Smoked: 10 years Smoked in Last 30 Days: No e-Cigarette/Vaping Use: Never Used Second Hand Smoke Exposure: No Use of substances other than those prescribed or required for medical reasons: No service: No Current occupational status: employed 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 Plan for panniculectomy. Risks of infection, bleeding, asymmetry, wound dehiscence and blood clots were discussed with the patient. 2. You will have a drain the abdomen that may stay a few weeks before it may be removed 3. You will need to be doing sponge baths the first 1-2 weeks. No showers. You need to have help at home to get you up and limit your activities as much as possible for at least the 4-6 weeks after surgery 4. We will arrange for a visiting nurse to come at home to help you with dressing changes and send me pictures of the procedures. We will send at your home supplies for the dressing changes. 5. Continue nutritional plan with two Premier shakes with ONE scoop each in 8oz almond milk at 8am-10am and 11am-1pm, another Premier shake with HALF scoop in 8oz almond milk at 2pm-4pm and one meal at 5pm(5 forks of protein and 5 forks of salad or vegetables) and another Premier shake with HALF scoop in 8oz almond milk at 7pm-9pm. This will improve weight loss and healing after surgery. 6. Continue all vitamins 7. Continue all medications and vitamins until the day before surgery 8. Do blood work not fasting any day between Tuesday08/12/25 and Tuesday08/14/25 and order picker/assembler the antibiotic prescription from your pharmacy 9. Risks and complications were discussed the possibility of bleeding that may require transfusion, loss of the umbilicus, wound dehiscence or infection, dog ears , flap asymmetry. We also discussed the importance of strict avoidance of weight lifting. 10. Avoid aspirin, motrin, ibuprofen, Aleve, Advil, Naproxyn. 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, not elsewhere classified, Z90.3 - Acquired absence of stomach [part of] Lipid Panel 08/05/25 K91.2 - Postsurgical malabsorption, not elsewhere classified, Z90.3 - Acquired absence of stomach [part of] Type and Screen 08/05/25 K91.2 - Postsurgical malabsorption, not elsewhere classified, Z90.3 - Acquired absence of stomach [part of] Vitamin B12 08/05/25 K91.2 - Postsurgical malabsorption, not elsewhere classified, Z90.3 - Acquired absence of stomach [part of] Partial Thromboplastin Time 08/05/25 K91.2 - Postsurgical malabsorption, not elsewhere classified, Z90.3 - Acquired absence of stomach [part of] Vitamin D 25-OH Total 08/05/25 K91.2 - Postsurgical malabsorption, not elsewhere classified, Z90.3 - Acquired absence of stomach [part of] Ferritin 08/05/25 K91.2 - Postsurgical malabsorption, not elsewhere classified, Z90.3 - Acquired absence of stomach [part of] IRON PROFILE 08/05/25 K91.2 - Postsurgical malabsorption, not elsewhere classified, Z90.3 - Acquired absence of stomach [part of] Comprehensive Met. Panel 08/05/25 K91.2 - Postsurgical malabsorption, not elsewhere classified, Z90.3 - Acquired absence of stomach [part of] TSH reflex Free T4 08/05/25 K91.2 - Postsurgical malabsorption, not elsewhere classified, Z90.3 - Acquired absence of stomach [part of] Vitamin B1 08/05/25 K91.2 - Postsurgical malabsorption, not elsewhere classified, Z90.3 - Acquired absence of stomach [part of] C Reactive Protein 08/05/25 K91.2 - Postsurgical malabsorption, not elsewhere classified, Z90.3 - Acquired absence of stomach [part of] Complete Blood Count Auto Diff 08/05/25 K91.2 - Postsurgical malabsorption, not elsewhere classified, Z90.3 - Acquired absence of stomach [part of] Zinc 08/05/25 K91.2 - Postsurgical malabsorption, not elsewhere classified, Z90.3 - Acquired absence of stomach [part of] Insulin 08/05/25 K91.2 - Postsurgical malabsorption, not elsewhere classified, Z90.3 - Acquired absence of stomach [part of] Medications: New ondansetron Only take one every 12 hours as needed if you have nausea 4 mg PO Q12H 20 tabs 0RF nausea and vomiting R11.0 - Nausea docusate sodium (Colace) 100 mg PO DAILY 90 caps 0RF K59.00 - Constipation, unspecified cephalexin 500 mg PO Q12H 60 caps 2RF M79.3 - Panniculitis, unspecified
[2025-08-05 23:38] VITALS: BMI 23.8
== END 2025-08-06 15:08 | disposition home or self-care (01) ==
LOC: HO.HBS 11:28
PROVIDERS: PCP Nurse Practitioner Family; Visit Provider Surgery
DX: M79.3 Panniculitis, unspecified (principal); L98.7 Excessive and redundant skin and subcutaneous tissue
CPT/HCPCS: 99024

== ENCOUNTER 2025-08-20 05:59 | Day surgery (SDC) | payer BC, SELFPAY ==
--- OUTSIDE RECORDS SUMMARY | 2022-09-08 10:41 | XMS_ITS | Encounter Summary ---
Author Organization [facility] Address [address] [address] Phone Care Team Providers Care Restaurant Floor Manager Name Role Phone Yen Bhakta TRAIN GATE ATTENDANT Primary Care Provider Encounter Details Date Type Department Care Team (Late st Contact Info) Description 09/08/2022 9:41 AM EST Hospital Encounter [facility] [address] [place] [address] Melba Singh NP [address] [place] [phone] [email or web address] Social History Tobacco Use Types Packs/Day Years [...] 4:55 PM EDT Bruna Hampton RN * [place] Suicide Severity Rating Scale (Screener/Recent Self-Report) Question [...] report originally createdby Tanner Landaverde. Melba Singh TRAIN GATE ATTENDANT IMG XR UPPER EXTREMITY Fin al Result documented in this encounter Visit Diagnoses Not on filedocumented in this encounter Additional Health Concerns Infection Onset Date Last Indicated Resolved Time CoV-Risk 08/29/2023 08/29/2023 09/09/2023 1:22 AM EST documented as of this encounter Care Teams Restaurant Floor Manager Relationship Specialty Start Date End Date Yen Bhakta NP PCP - General Family Medicine 09/08/22 05/25/23 documented as of this encounter Additional Source Comments The information contained in this document represents components of the legal health record. It is not the complete legal health record.[facility]
--- OUTSIDE RECORDS SUMMARY | 2025-07-17 15:46 | XMS_ITS | Clinical Summary ---
Author Organization [facility] Address [address] [place], [place] [id number] Phone Care Team Providers Care Lens Grinder Apprentice Name Role Phone Yen Bhakta NP Primary [...] you interested in more education? Not on yldia e 01/15/2023 Are you concerned about learning? [...] 2009 INFLUENZA VACCINE (#1) 2025 COVID-19 VACCINE (2024-2 6 season) 2025 HEPATITIS A VACCINES Aged Out [...] Devices Not on file Insurance Care Teams Lens Grinder Apprentice Relationship Specialty Start Date End Date Yen Bhakta NP PCP - General Nurse Practitioner 08/29/23 Additional Source Comments The information contained in this document represents components of the legal health record. It is not the complete legal health record.[facility]
[2025-07-30 11:35] VITALS: BMI 24.3
[2025-08-08 14:08] LABS: MANUAL DIFF FLAG NO
[2025-08-08 14:38] LABS: Hematocrit 39.6 % (37.0-47.0); Hemoglobin 13.3 g/dl (12.0-16.0); Imm Gran Abs Auto 0.01 X10*3/uL (0.00-0.03); Imm Gran Pct Auto 0.3 % (0.0-0.4); Lymphocytes Absolute Auto 1.4 X10*3/uL (1.2-4.9); Mean Corpuscular HGB Conc 33.6 g/dl (31.0-35.0); Mean Corpuscular Hemoglobin 32.9 pg (27.0-33.0); Mean Corpuscular Volume 98.0 fL (80.0-98.0); NRBC Abs Auto 0.000 X10*3/uL (0.0-0.012); NRBC Pct Auto 0.0 /100WBC (0.0-0.2); Platelet Count 260 X10*3/uL (160-400); Red Blood Count 4.04 X10*6/uL (4.20-5.50); White Blood Count 3.7 X10*3/uL (4.8-10.8)
[2025-08-08 14:48] LABS: INTERNATIONAL NORM RATIO 1.0 (0.9-1.1); Prothrombin Time 11.8 SEC (11.2-13.5)
[2025-08-08 14:51] LABS: Partial Thromboplastin Time 26.2 SEC (26.7-34.1)
[2025-08-08 15:15] LABS: Alanine Aminotransferase 13 U/L (0-31); Albumin Level 4.3 g/dL (3.5-5.0); Alkaline Phosphatase 68 U/L (39-117); Anion Gap 11 (12-20); Aspartate Amino Transferase 27 U/L (5-31); Blood Urea Nitrogen 13 mg/dL (9-16); Calcium 8.8 mg/dL (8.4-10.2); Carbon Dioxide 27 mmol/L (22-29); Chloride 106 mmol/L (96-108); Cholesterol 211 mg/dL (<200); Creatinine Clr Calc Pharmacy 97.3; Estimated Glomerular Filt Rate > 60; HDL Cholesterol 70 mg/dL (>40); Iron 113 mcg/dL (30-160); Percent Iron Saturation 32 % (15-50); Potassium 3.9 mmol/L (3.3-5.1); Sodium 140 mmol/L (135-145); Total Iron Binding Capacity 357 mcg/dL (228-428); Total Protein 7.1 g/dL (6.5-8.0); Triglycerides 81 mg/dL (<150); Unsaturated Iron Binding 244 ug/dL
[2025-08-08 15:35] LABS: Ferritin 15 ng/mL (10-122)
[2025-08-08 15:39] LABS: Vitamin B12 816 pg/mL (200-900)
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
[2025-08-20] VITALS (11 sets, daily range): BP systolic 117–132; BP diastolic 59–86; PULSE 72–106; RESP 8–16; TEMP 36.4–37.4; O2SAT 94–99; BMI 24.9
[2025-08-20] MEDS: Lactated Ringers 1,000 ML 100 ML IVCONT (06:42)
[2025-08-20] MEDS: Aprepitant 32 MG/4.4 ML VIAL IVPUSH (06:48)
[2025-08-20 07:15] LABS: UPreg QC Valid YES
--- NOTE | 2025-08-20 07:36 | MHC.SHP ---
Pre-Procedural Eval Section A - 24 Hr Update-Section A only Date of Service: 08/20/25 The patient is an INPATIENT: No The patient has been examined within 24 hours of the surgical procedure. The History & Physical has been completed within 30 days and I have reviewed it.: Yes Section B - Complete if H&P > 30 days Chief Complaint: Excessive and redundant skin and subcut tissue Relevant Family History (Specify if Yes): No Relevant Social History: None Present Medications: None Medical History: No relevant PMH History of Previous Operations: Relevant previous surgery/procedure and date(s) (Laparoscopic sleeve gastrectomy) Allergies: Allergies Allergy/AdvReac Type Severity Reaction Status Date / Time adhesive tape Allergy Severe Rash, skin Verified 08/08/25 15:32 blisters avocado Allergy Severe Itching, Verified 08/08/25 15:32 throat tightness sertraline Allergy Mild Rash Verified 08/08/25 15:32 Review of Systems Sugical H&P ROS: Negative: Constitution, Cardiovascular, Respiratory, Neurological, Psychiatric, Hem-Onc, Allergic/Immunologic, Gastrointestinal, Genitourinary, Musculoskeletal, Integumentary, Endocrine and Eyes/Ears/Nose/Throat Exam Surgical H&P Exam: Normal: HEENT, Normal: Heart, Normal: Lungs, Normal: Extremities, Normal: Abdomen, Normal: Skin and Normal: Neurological Plan Diagnosis/Plan: Unchanged I have reviewed the history and physical and performed a pertinent physical examination on my patient. No changes have occurred unless specified. Time Spent With Patient Time: Total time managing care of this patient today ____ minutes.
--- NOTE | 2025-08-20 07:37 | PM.OP ---
Brief Operative Note Date of Service: 08/20/25 Pre-op diagnosis: Excess skin Post-op diagnosis: same Procedure: PROCEDURE: Panniculectomy with umbilical transposition and bilateral subcutaneous fat flaps INDICATION: This a 34 year old female who underwent laparoscopic sleeve gastrectomy on 09/17/2020. She had an excellent result achieving a BMI of 23.9 kg/m2 with a total weight loss of 103.6lbs, or 42.7% of her TBWL. As a result, she has developed panniculitis which has not resolved despite continuous use of clotrimazole ointment as well as skin irritation. On exam she has extreme skin laxity due to massive weight loss, with the abdominal pannus completely hanging 4cm below the pubis. Panniculectomy was recommended. We discussed the two options for the panniculectomy of using a combined vertical and horizontal incisions or just a horizontal (bikini) incision. It was my recommendation to do only horizontal incision based on her body habitus and skin laxity. The patient agreed with this. Risks and complications were discussed with the patient including bleeding, infection, umbilical loss, flap necrosis, asymmetry, dehiscence, seroma, VTE. The patient understood the risks and was in agreement to proceed with surgery. PROCEDURE: The incisions were appropriately marked at the preop area with the patient standing and laying down. After induction of general anesthesia, pneumatic compression devices were placed. The patient was prepped and draped in the usual sterile manner and the incisions were marked again and confirmed. The skin was infiltrated with lidocaine and epinephrine. The #10 blade scalpel was used for the large incisions and the #15 blade scalpel for the umbilicus. Cautery was used to divide the subcutaneous tissues until the fascia was identified. Then I used the cautery to separate the pannus from the fascia. The inferior incision was made initially and I mobilized the flap for a several centimeters cephalad to the umbilicus. The umbilicus was incised circumferentially and detached from the surrounding tissues all the way to the fascia while its stalk was preserved. With the patient in reflex position I confirmed that the skin flaps were appropriate and would allow for the tissues to come together with reasonable tension. At that point a horizontal incision was made 4 cm above the umbilicus. #10 blade was used for the skin, cautery for the dermis and for the remaining tissues. A subcutaneous fat flap was raised from the upper skin flap in order to fill the space under the skin and support the closure of the two flaps. In addition the inferior flap was mobilized caudally for a few centimeters to create a space for the subcutaneous fat flap as well as relieve tension from the closure. A circumferential incision was made at the area where the umbilicus would be re-implanted. The umbilicus was appropriately oriented and was delivered through the defect and was secured in place with a [place]. No bleeding was noted anywhere. One NILS drain was placed from the left corner of the horizontal incision across the wound and was secured in place with a silk suture. The subcutaneous fat flap was secured under the inferior flap with several interrupted 3.0 Monocryl sutures. The two flaps were brought together and were attached at the midline of the horizontal incision with a #3.0 Monocryl suture. At that point the umbilicus was properly oriented and was re-approximated to the skin with 8 interrupted 3.0 Monocryl sutures. In a similar fashion the skin flaps were re-approximated with multiple 3.0 Monocryl sutures. The skin was closed in all incisions and umbilicus with 4.0 Monocryl sutures. Steri-strips, xeroform gauzes and gauzes were used to cover the incisions. An abdominal binder was also placed. The was awaken and was transferred to the recover room in a stable condition. I was present and performed the entire procedure. Ms. Contreras was the assistant administrator and Ms. Dowling was the second. Seb Tineo MD, PhD, FACS Surgeon: Samuel Tineo MD Surgeon: Samuel Tineo MD Anesthesia: GETA and local Was an Postal Superintendent used for this Procedure?: No Postal Superintendent: Juanis Contreras Estimated blood loss (mL): 10 IV fluids (mL): 2,000 Urine output (mL): 0 (No Ruiz to record output) Pathology: other (Abdominal pannus) Condition: stable Disposition: PACU
--- NOTE | 2025-08-20 11:53 | P.F2F_ITS ---
Service Date Service Date: 08/20/25 Encounter Date of encounter: 08/20/25 Reasons for Services Signs and symptoms assessed: s/p panniculectomy with drain placement Reason for penitentiary: wound care Homebound: Leaving the home is medically contraindicated at this time without the asist of a device and/or another person due th the listed conditions above and below. Reason homebound: unable to drive Certification: Based on the above findings, I certify that this patient is confined to the home and needs intermittent penitentiary care, physical therapy and/or speech therapy, or continues to need occupational therapy. The patient is under my care, and I have initiated the establishment of the plan of care. The patient will be followed by a physician who will periodically review the plan of care. Time Spent With Patient Time: Total time managing care of this patient today _30___ minutes.
== END 2025-08-20 15:15 | disposition home or self-care (01) ==
PROVIDERS: Nurse Practitioner; PCP Nurse Practitioner Family; Visit Provider Surgery
PROC: 0JB80ZZ Excision of Abdomen Subcutaneous Tissue and Fascia, Open Approach (ICD-10-PCS; CPT 15830; principal; 2025-08-20 07:30)
DX: L98.7 Excessive and redundant skin and subcutaneous tissue (principal); K91.2 Postsurgical malabsorption, not elsewhere classified; M79.3 Panniculitis, unspecified; E65 Localized adiposity; Z90.3 Acquired absence of stomach [part of]; R63.4 Abnormal weight loss; Z68.23 Body mass index [BMI] 23.0-23.9, adult; K59.00 Constipation, unspecified; R11.0 Nausea; E05.00 Thyrotoxicosis with diffuse goiter without thyrotoxic crisis or storm; E03.9 Hypothyroidism, unspecified; G47.30 Sleep apnea, unspecified; F33.9 Major depressive disorder, recurrent, unspecified; F41.9 Anxiety disorder, unspecified; L23.1 Allergic contact dermatitis due to adhesives; Z88.8 Allergy status to other drugs, medicaments and biological substances; Z79.899 Other long term (current) drug therapy; Z98.890 Other specified postprocedural states; Z87.891 Personal history of nicotine dependence
CPT/HCPCS: 15830; 15847; 36415; 80053; 80061; 81025; 82306; 82607; 82728; 83036; 83525; 83540; 84425; 84443; 84590; 84630; 85025; 85610; 85730; 86140; 86850; 86900; 86901; 88304; C9145; J0131; J0690; J1100; J1171; J2003; J2004; J2250; J2405; J2704; J3010; J3374

== ENCOUNTER → 2025-08-20 05:59 | Outpatient (BNV) | payer BC, SELFPAY | PROVIDERS: PCP Nurse Practitioner Family; Visit Provider Surgery | DX: M79.3 Panniculitis, unspecified (principal); L98.7 Excessive and redundant skin and subcutaneous tissue | CPT/HCPCS: 15830 ==

== ENCOUNTER 2025-08-28 09:54 | Outpatient (AMB) | payer BC, SELFPAY ==
--- NOTE | 2025-08-28 10:24 | MHC.OFFVISWM ---
VS Expanded 08/28/25 10:52 BP 139/86 Blood Pressure Location Rt brachial Blood Pressure Position Sitting Pulse 91 Pulse Source Pulse Oximeter Temp 98.8 F Temperature Source Temporal Artery Scan Pulse Oximetry 97 Oxygen Delivery Method Room Air Intake Visit Reasons: OV PO Panniculectomy 08/20/25 Allergies adhesive tape Allergy (Severe, Verified 08/08/25 15:32) Rash, skin blisters avocado Allergy (Severe, Verified 08/08/25 15:32) Itching, throat tightness sertraline Allergy (Mild, Verified 08/08/25 15:32) Rash HPI Comments Details: Pt is 1w s/p panniculectomy 06/20/2025. No fevers at home. Taking abx. Following meal plan. Drain output 25cc or more each day. She is experiencing some blisters from the tape. [facility] Medical History Vitamin B1 deficiency Vitamin D deficiency Postgastrectomy malabsorption Back pain Numbness in right leg BMI 38.0-38.9,adult Vaccine counseling Laboratory tests ordered as part of a complete physical exam (CPE) Encounter for weight management BMI 40.0-44.9, adult Vaginal itching Normal physical exam Hx of Hypothyroidism Sleep apnea Graves disease Depression Anxiety Surgical History (Updated 08/28/25 @ 11:10 by ANDRES Solares) S/P panniculectomy Hx of laparoscopic partial gastrectomy History of surgery History of wisdom tooth extraction History of sinus surgery Family History Father No family history of mental disorder Diabetes Mother No family history of mental disorder Breast cancer Daughter No problems noted. Daughter No problems noted. Son No problems noted. 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 ABX keflex 500 BID x 2 weeks, extended as needed?(at least until drain comes out plus 1 week).? Drain out after consistently 20 mL or less daily.? Abdominal binder at all times except for care x 1 month?MINIMUM. If there are concerns longer.? No driving?until drain out.? No walking outside or exercise for 6 weeks minimum. Walking in the house okay. May use binder to hold dressings in place without tape. Assistance getting up for 4 weeks minimum.?No lifting greater than?10 pounds x 2 months and no abdominal exercises x 3 months.
[2025-08-28 10:52] VITALS: BP 139/86; PULSE 91; TEMP 37.1; O2SAT 97
== END 2025-08-28 11:11 | disposition home or self-care (01) ==
LOC: HO.HBS 09:55
PROVIDERS: PCP Nurse Practitioner Family; Visit Provider Physician Assistant Surgical
DX: Z71.3 Dietary counseling and surveillance (principal); Z98.890 Other specified postprocedural states
CPT/HCPCS: 99024

== ENCOUNTER 2025-09-04 11:00 | Outpatient (AMB) | payer BC, SELFPAY ==
--- OUTSIDE RECORDS SUMMARY | 2022-09-08 09:41 | XMS_ITS | Encounter Summary ---
Author Organization [facility] Address [address] [address] Phone Care Team Providers Care Colorist Name Role Phone Yen Bhakta SNAKE CHARMER Primary Care Provider Encounter Details Date Type Department Care Team (Late st Contact Info) Description 09/08/2022 9:41 AM EST Hospital Encounter [facility] [address] [place] [phone] Melba Singh NP [address] [place] [phone] [email or web address] Social History Tobacco Use Types Packs/Day Years Used Date Smoking Tobacco: Former Cigarettes Smokeless Tobacco: Never Education Answer Date Recorded Are you interested in more education? Not on lydia e 01/15/2023 Are you concerned about learning? Not on file 01/15/2023 No 01/15/2023 No 01/15/2023 Digital Access Answer Date Recorded No 02/15/2023 No 02/15/2023 Reliable internet access at home? Not on file 02/15/2023 Device with a working camera? Not on file Intimate Partner Violence Answer Date R ecorded Are you denied basic needs s uch as food, clothing, or medical care? No 05/05/2023 In the past 12 months have y ou been in a relationship with a person who hurts, threatens, or tries to control you? No 05/05/2023 Are you denied basic needs s uch as food, clothing, or medical care? No 05/05/2023 In the past 12 months have y ou been in a relationship with a person who hurts, threatens, or tries to control you? No 05/05/2023 Comments Unknown Sex and Gender Information Value Date Recorded Sex Assigned at Not on file Legal Sex Female 8:52 AM EST Gender Identity Not on file Sexual Orientation Not on file documented as of this encounter Functional Status * Calculated C-SSRS Risk Score (Lifetime/Recent) Answer Date of Assessment Author No Risk Indicated 05/05/2023 4:55 PM EDT Bruna Hampton RN * [place] Suicide Severity Rating Scale (Screener/Recent Self-Report) Question Answer Date of Assessment Author 1. Wish to be (Past 1 Month) No 023 4:55 PM EDT Bruna Lopez RN 2. Non-Specific Active Suici lauren Thoughts (Past 1 Month) No 05/05/2023 4:55 PM EDT Ross Lopez RN 6. Suicidal Behavior (Lifetime) No 4:55 PM EDT Bruna Lopez RN documented as of this encounter Plan of Treatment Not on file documented as of this encounter Procedures Procedure Name Priority Date/Time Associated Diagnosis Comments XR HAND 3 OR MORE VIEWS (LEFT) Urgent/patient waiting 09/08/2022 9:47 AM EST Left hand pain documented in this encounter Results * XR HAND 3 OR MORE VIEWS (LEFT) (09/08/2022 9:47 AM EST) Anatomical Region Laterality Modality Hand Left Computed Radiogr aphy 09/08/2022 9:48 AM EST Impressions 09/08/2022 9:51 AM EST No fracture or dislocation. ATTESTATION: I, Candi Tran as teaching physician, have reviewed the images for this case and if necessary edited the report originally created by Tanner Landaverde. Narrative 09/08/2022 9:51 AM EST XR HAND 3 OR MORE VIEWS (LEFT) COMPARISON: None. FINDINGS: No fracture. Normal alignment. No erosion. Normal joint spaces. No soft tissue swelling. Procedure Note Candi Tran MD - 09/08/2022 XR HAND 3 OR MORE VIEWS (LEFT) COMPARISON: None. FINDINGS: No fracture. Normal alignment. No erosion. Normal joint spaces. No softtissue swelling. IMPRESSION: No fracture or dislocation. ATTESTATION: I, Candi Tran as teaching physician, have reviewed theimages for this case and if necessary edited the report originally createdby Tanner Landaverde. Melba Singh SNAKE CHARMER IMG XR UPPER EXTREMITY Fin al Result documented in this encounter Visit Diagnoses Not on filedocumented in this encounter Additional Health Concerns Infection Onset Date Last Indicated Resolved Time CoV-Risk 08/29/2023 08/29/2023 09/09/2023 1:22 AM EST documented as of this encounter Care Teams Colorist Relationship Specialty Start Date End Date Yen Bhakta NP PCP - General Family Medicine 09/08/22 05/25/23 documented as of this encounter Additional Source Comments The information contained in this document represents components of the legal health record. It is not the complete legal health record.[facility]
--- NOTE | 2025-09-04 09:05 | MHC.OFFVISWM ---
VS Expanded 09/04/25 11:08 BP 126/69 Blood Pressure Location Rt brachial Blood Pressure Position Sitting Pulse 70 Pulse Source Pulse Oximeter Temp 98.2 F Temperature Source Temporal Artery Scan Pulse Oximetry 98 Oxygen Delivery Method Room Air Intake Visit Reasons: OV PO Panniculectomy 08/20/25 Allergies adhesive tape Allergy (Severe, Verified 09/04/25 11:09) Rash, skin blisters avocado Allergy (Severe, Verified 09/04/25 11:09) Itching, throat tightness sertraline Allergy (Mild, Verified 09/04/25 11:09) Rash Medication List - Last Reconciled 09/04/25 by Juanis Contreras CNP bupropion HCl XL 300 mg PO DAILY cephalexin 500 mg PO Q12H cholecalciferol (vitamin D3) 125 mcg PO DAILY clonidine HCl 0.1 mg PO DAILY PRN clonidine HCl ER 0.1 mg PO BEDTIME docusate sodium (Colace) 100 mg PO DAILY escitalopram oxalate (Lexapro) 10 mg PO DAILY levothyroxine 125 mcg PO DAILY loratadine (Claritin) 10 mg PO DAILY multivitamin with minerals (Hair,Skin and Nails tablet) 1 tab PO DAILY ondansetron 4 mg PO Q12H thiamine HCl (vitamin B1) 100 mg PO DAILY HPI Comments Details: 35 year old woman s/p panniculectomy 08/20/2025 s/p LSG 01/03/2024 VNA for dressing changes. Drain in place, empties once per day at nighttime. She reports 15cc per day the last 4-5 days. serosanguineous output. Compliant with abd binder. Compliant with meal plan. Current meal plan: Premier PP 1 scoop per shake - 3 shakes per day Dinner chicken small amount 40oz water per day Exercise: none right now PFSH Medical History Vitamin B1 deficiency Vitamin D deficiency Postgastrectomy malabsorption Back pain Numbness in right leg BMI 38.0-38.9,adult Vaccine counseling Laboratory tests ordered as part of a complete physical exam (CPE) Encounter for weight management BMI 40.0-44.9, adult Vaginal itching Normal physical exam Hx of Hypothyroidism Sleep apnea Graves disease Depression Anxiety Surgical History S/P panniculectomy Hx of laparoscopic partial gastrectomy History of surgery History of wisdom tooth extraction History of sinus surgery Family History Father No family history of mental disorder Diabetes Mother No family history of mental disorder Breast cancer Daughter No problems noted. Daughter No problems noted. Son No problems noted. 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 Mild tenderness along panniculectomy incision and drain site. Dsg CDI. Steri strips in place. Panniculectomy incision and umbilicus healing well, no redness, swelling, warmth, drainage, or signs of infection. NILS drain with minimal serosanguinous output in bulb. New DSD applied, no tape due to patient allergy/sensitivity to all tapes. Neuro General: patient oriented x3 Assessment & Plan Assessment & Plan (1) S/P panniculectomy: Code(s): Z98.890 - Other specified postprocedural states Category: Surgical Plan: Plan: - Continue high protein diet. - Continue ABX keflex 500 BID - Drain can be removed after consistently 20 mL or less daily.? Bring record to next visit - Abdominal binder at all times except for care x 1 month MINIMUM. Longer if there are concerns.? - No walking outside or exercise for 6 weeks minimum. Walking in the house after 1st appt if we are satisfied with progress. Assistance getting up for 4 weeks minimum. No lifting greater than 10 pounds x 2 months and no abdominal exercises x 3 months. - No driving until after drain removal. Follow up: 1 week, as scheduled
[2025-09-04 11:08] VITALS: BP 126/69; PULSE 70; TEMP 36.8; O2SAT 98
--- OUTSIDE RECORDS SUMMARY | 2025-09-04 14:30 | XMS_ITS | Clinical Summary ---
Author Organization [facility] Address [address] [place], [place] [id number] Phone Care Team Providers Care Hybrid Derivatives Trader Name Role Phone Yen Bhakta NP Primary [...] Devices Not on file Insurance Care Teams Hybrid Derivatives Trader Relationship Specialty Start Date End Date Yen Bhakta NP PCP - General Nurse Practitioner 08/29/23 Additional Source Comments The information contained in this document represents components of the legal health record. It is not the complete legal health record.[facility]
== END 2025-09-04 11:43 | disposition home or self-care (01) ==
LOC: HO.HBS 11:01
PROVIDERS: PCP Nurse Practitioner Family; Visit Provider Nurse Practitioner
DX: Z98.890 Other specified postprocedural states (principal)
CPT/HCPCS: 99024

== ENCOUNTER 2025-09-09 10:28 | Outpatient (AMB) | payer BC, SELFPAY ==
--- OUTSIDE RECORDS SUMMARY | 2022-09-08 09:41 | XMS_ITS | Encounter Summary ---
Author Organization [facility] Address [address] [address] Phone Care Team Providers Care Process Development Engineer Name Role Phone Yen Bhakta PARKER Primary Care Provider Encounter Details Date Type Department Care Team (Late st Contact Info) Description 09/08/2022 9:41 AM EST Hospital Encounter [facility] [address] [place] [phone] Melba Singh NP [address] [place] [phone] [email or web address] Social History Tobacco Use Types Packs/Day Years [...] report originally createdby Tanner Landaverde. Melba Singh PARKER IMG XR UPPER EXTREMITY Fin al Result documented in this encounter Visit Diagnoses Not on filedocumented in this encounter Additional Health Concerns Infection Onset Date Last Indicated Resolved Time CoV-Risk 08/29/2023 08/29/2023 09/09/2023 1:22 AM EST documented as of this encounter Care Teams Process Development Engineer Relationship Specialty Start Date End Date Yen Bhakta NP PCP - General Family Medicine 09/08/22 05/25/23 documented as of this encounter Additional Source Comments The information contained in this document represents components of the legal health record. It is not the complete legal health record.[facility]
[2025-09-09 10:39] VITALS: BP 140/79; PULSE 71; TEMP 36.9; O2SAT 100
--- NOTE | 2025-09-09 10:39 | MHC.OFFVISWM ---
VS Expanded 09/09/25 10:39 BP 140/79 H Blood Pressure Location Rt brachial Blood Pressure Position Sitting Pulse 71 Pulse Source Pulse Oximeter Temp 98.4 F Temperature Source Temporal Artery Scan Pulse Oximetry 100 Oxygen Delivery Method Room Air Intake Visit Reasons: OV PO Panniculectomy 08/20/25 Allergies adhesive tape Allergy (Severe, Verified 09/09/25 10:40) Rash, skin blisters avocado Allergy (Severe, Verified 09/09/25 10:40) Itching, throat tightness sertraline Allergy (Mild, Verified 09/09/25 10:40) Rash Medication List - Last Reconciled 09/09/25 by Juanis Contreras CNP bupropion HCl XL 300 mg PO DAILY cephalexin 500 mg PO Q12H cholecalciferol (vitamin D3) 125 mcg PO DAILY clonidine HCl 0.1 mg PO DAILY PRN clonidine HCl ER 0.1 mg PO BEDTIME docusate sodium (Colace) 100 mg PO DAILY escitalopram oxalate (Lexapro) 10 mg PO DAILY levothyroxine 125 mcg PO DAILY loratadine (Claritin) 10 mg PO DAILY multivitamin with minerals (Hair,Skin and Nails tablet) 1 tab PO DAILY ondansetron 4 mg PO Q12H thiamine HCl (vitamin B1) 100 mg PO DAILY HPI Comments Details: 35 year old woman s/p panniculectomy 08/20/2025 s/p LSG 01/03/2024 VNA for dressing changes. Drain in place, empties once per day at nighttime. Per her records, drain output has been 15cc or less for over 10 days. serosanguineous output. Denies constitutional symptoms. Compliant with abd binder. Compliant with meal plan. Still taking the Colace, but stopped the milk of mag and noticed constipation. Current meal plan: Premier PP 1 scoop per shake - 3 shakes per day Dinner chicken small amount 40oz water per day Exercise: none right now [facility] Medical History Vitamin B1 deficiency Vitamin D deficiency Postgastrectomy malabsorption Back pain Numbness in right leg BMI 38.0-38.9,adult Vaccine counseling Laboratory tests ordered as part of a complete physical exam (CPE) Encounter for weight management BMI 40.0-44.9, adult Vaginal itching Normal physical exam Hx of Hypothyroidism Sleep apnea Graves disease Depression Anxiety Surgical History S/P panniculectomy Hx of laparoscopic partial gastrectomy History of surgery History of wisdom tooth extraction History of sinus surgery Family History Father No family history of mental disorder Diabetes Mother No family history of mental disorder Breast cancer Daughter No problems noted. Daughter No problems noted. Son No problems noted. Other Mental health disorder Social History Household Members: Children Housing: House Are you a primary health care sanitary technician to a significant other at home: Yes (4 children) Do you presently have visiting nurse or other home services: No 75 years or older and lives alone: No Alcohol intake: current Alcohol intake frequency: holidays/special occasions only Patient Tobacco Use Status: Former Tobacco user Tobacco use type: Cigarette Cigarettes Per Day: 2 Years Smoked: 10 years e-Cigarette/Vaping Use: Never Used Second Hand Smoke Exposure: No service: No Current occupational status: employed 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 No tenderness along panniculectomy incision and drain site. Dsg CDI. Steri strips in place. Panniculectomy incision and umbilicus healing well, no redness, swelling, warmth, drainage, or signs of infection. NILS drain with scant serosanguinous output in bulb. NILS drain removed. New DSD applied, no tape due to patient allergy/sensitivity to all tapes. Neuro General: patient oriented x3 Assessment & Plan Assessment & Plan (1) S/P panniculectomy: Code(s): Z98.890 - Other specified postprocedural states Category: Surgical Plan: Plan: - Continue high protein diet. - Continue ABX keflex 500 BID x1 week - Drain removed today. Can shower tomorrow, no submerging in water. Pat dry. Continue replacing steri strips and using xeroform, and then can discontinue at next visit. - Abdominal binder at all times except for care x 1 month MINIMUM. Longer if there are concerns.? Can switch to different compressive garment at 6 weeks post op. - No walking outside or exercise for 6 weeks minimum. Walking in the house after 1st appt if we are satisfied with progress. Assistance getting up for 4 weeks minimum. No lifting greater than 10 pounds x 2 months and no abdominal exercises x 3 months. Can start driving tomorrow. - Restart the milk of mag or miralax to help with constipation and avoid straining Follow up: 1 week, as scheduled
--- OUTSIDE RECORDS SUMMARY | 2025-09-09 12:52 | XMS_ITS | Clinical Summary ---
Author Organization [facility] Address [address] [place], [place] [id number] Phone Care Team Providers Care Gas Engineer Name Role Phone Yen Bhakta NP Primary [...] Devices Not on file Insurance Care Teams Gas Engineer Relationship Specialty Start Date End Date Yen Bhakta NP PCP - General Nurse Practitioner 08/29/23 Additional Source Comments The information contained in this document represents components of the legal health record. It is not the complete legal health record.[facility]
== END 2025-09-09 11:07 | disposition home or self-care (01) ==
LOC: HO.HBS 10:29
PROVIDERS: PCP Nurse Practitioner Family; Visit Provider Nurse Practitioner
DX: M79.3 Panniculitis, unspecified (principal); Z98.890 Other specified postprocedural states
CPT/HCPCS: 99024

== ENCOUNTER 2025-09-16 15:36 | Outpatient (AMB) | payer BC, SELFPAY ==
--- OUTSIDE RECORDS SUMMARY | 2022-09-08 09:41 | XMS_ITS | Encounter Summary ---
Author Organization [facility] Address [address] [address] Phone Care Team Providers Care Drop Forger Helper Name Role Phone Yen Bhakta UMBRELLA TIPPER HAND Primary Care Provider Encounter Details Date Type Department Care Team (Late st Contact Info) Description 09/08/2022 9:41 AM EST Hospital Encounter [facility] [address] [place] [phone] Melba Singh NP [address] [place] [phone] [email or web address] Social History Tobacco Use Types Packs/Day Years [...] on file documented as of this encounter Plan of [...] AM EST No fracture or dislocation. ATTESTATION: Candi Beauchamp as teaching physician, have reviewed the images [...] swelling. IMPRESSION: No fracture or dislocation. ATTESTATION: Candi Beauchamp as teaching physician, have reviewed theimages for this case and if necessary edited the report originally createdby Tanner Landaverde. Melba Singh UMBRELLA TIPPER HAND IMG XR UPPER EXTREMITY Fin al Result documented in this encounter Visit Diagnoses Not on filedocumented in this encounter Additional Health Concerns Infection Onset Date Last Indicated Resolved Time CoV-Risk 08/29/2023 08/29/2023 09/09/2023 1:22 AM EST documented as of this encounter Care Teams Drop Forger Helper Relationship Specialty Start Date End Date Yen Bhakta NP PCP - General Family Medicine 09/08/22 05/25/23 documented as of this encounter Additional Source Comments The information contained in this document represents components of the legal health record. It is not the complete legal health record.[facility]
[2025-09-16 15:46] VITALS: BP 133/62; PULSE 78; TEMP 36.7; O2SAT 97
--- NOTE | 2025-09-16 15:46 | MHC.OFFVISWM ---
VS Expanded 09/16/25 15:46 BP 133/62 Blood Pressure Location Rt brachial Blood Pressure Position Sitting Pulse 78 Pulse Source Pulse Oximeter Temp 98.1 F Temperature Source Temporal Artery Scan Pulse Oximetry 97 Oxygen Delivery Method Room Air Intake Visit Reasons: OV PO Panniculectomy 08/20/25 Allergies adhesive tape Allergy (Severe, Verified 09/16/25 15:48) Rash, skin blisters avocado Allergy (Severe, Verified 09/16/25 15:48) Itching, throat tightness sertraline Allergy (Mild, Verified 09/16/25 15:48) Rash PFSH Medical History Vitamin B1 deficiency Vitamin D deficiency Postgastrectomy malabsorption Back pain Numbness in right leg BMI 38.0-38.9,adult Vaccine counseling Laboratory tests ordered as part of a complete physical exam (CPE) Encounter for weight management BMI 40.0-44.9, adult Vaginal itching Normal physical exam Hx of Hypothyroidism Sleep apnea Graves disease Depression Anxiety Surgical History S/P panniculectomy Hx of laparoscopic partial gastrectomy History of surgery History of wisdom tooth extraction History of sinus surgery Family History Father No family history of mental disorder Diabetes Mother No family history of mental disorder Breast cancer Daughter No problems noted. Daughter No problems noted. Son No problems noted. Other Mental health disorder Social History Household Members: Children Housing: House Are you a primary critical care unit nurse to a significant other at home: Yes (4 children) Do you presently have visiting nurse or other home services: No 75 years or older and lives alone: No Alcohol intake: current Alcohol intake frequency: holidays/special occasions only Patient Tobacco Use Status: Former Tobacco user Tobacco use type: Cigarette Cigarettes Per Day: 2 Years Smoked: 10 years e-Cigarette/Vaping Use: Never Used Second Hand Smoke Exposure: No service: No Current occupational status: employed 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
--- NOTE | 2025-09-16 15:46 | MHC.OFFVISWM ---
VS Expanded 09/16/25 15:46 BP 133/62 Blood Pressure Location Rt brachial Blood Pressure Position Sitting Pulse 78 Pulse Source Pulse Oximeter Temp 98.1 F Temperature Source Temporal Artery Scan Pulse Oximetry 97 Oxygen Delivery Method Room Air Intake Visit Reasons: OV PO Panniculectomy 08/20/25 Allergies adhesive tape Allergy (Severe, Verified 09/16/25 15:48) Rash, skin blisters avocado Allergy (Severe, Verified 09/16/25 15:48) Itching, throat tightness sertraline Allergy (Mild, Verified 09/16/25 15:48) Rash Medication List - Last Reconciled 09/16/25 by Juanis Contreras CNP bupropion HCl XL 300 mg PO DAILY cephalexin 500 mg PO Q12H cholecalciferol (vitamin D3) 125 mcg PO DAILY clonidine HCl 0.1 mg PO DAILY PRN clonidine HCl ER 0.1 mg PO BEDTIME docusate sodium (Colace) 100 mg PO DAILY escitalopram oxalate (Lexapro) 10 mg PO DAILY levothyroxine 125 mcg PO DAILY loratadine (Claritin) 10 mg PO DAILY multivitamin with minerals (Hair,Skin and Nails tablet) 1 tab PO DAILY ondansetron 4 mg PO Q12H thiamine HCl (vitamin B1) 100 mg PO DAILY HPI Comments Details: 35 year old woman s/p panniculectomy 08/20/2025 s/p LSG 01/03/2024 Drain removed at last visit. Taking ABX as prescribed. Denies constitutional symptoms. VNA and independent dsg changes. Compliant with abd binder. Compliant with meal plan. Reports no constipation since restarting the milk of mag. Still some numbness along incision. 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 [facility] Medical History Vitamin B1 deficiency Vitamin D deficiency Postgastrectomy malabsorption Back pain Numbness in right leg BMI 38.0-38.9,adult Vaccine counseling Laboratory tests ordered as part of a complete physical exam (CPE) Encounter for weight management BMI 40.0-44.9, adult Vaginal itching Normal physical exam Hx of Hypothyroidism Sleep apnea Graves disease Depression Anxiety Surgical History S/P panniculectomy Hx of laparoscopic partial gastrectomy History of surgery History of wisdom tooth extraction History of sinus surgery Family History Father No family history of mental disorder Diabetes Mother No family history of mental disorder Breast cancer Daughter No problems noted. Daughter No problems noted. Son No problems noted. Other Mental health disorder Social History Household Members: Children Housing: House Are you a primary critical care unit manager to a significant other at home: Yes (4 children) Do you presently have visiting nurse or other home services: No 75 years or older and lives alone: No Alcohol intake: current Alcohol intake frequency: holidays/special occasions only Patient Tobacco Use Status: Former Tobacco user Tobacco use type: Cigarette Cigarettes Per Day: 2 Years Smoked: 10 years e-Cigarette/Vaping Use: Never Used Second Hand Smoke Exposure: No service: No Current occupational status: employed 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 No tenderness along panniculectomy incision and drain site. Steri's intact. Panniculectomy incision and umbilicus healing well, no redness, swelling, warmth, drainage, or signs of infection. NILS drain site scabbed over. Increased sensation to touch compared to prior visits. ABD pads placed over steri's, no tape due to patient allergy/sensitivity to all tapes. Neuro General: patient oriented x3 Assessment & Plan Assessment & Plan (1) S/P panniculectomy: Code(s): Z98.890 - Other specified postprocedural states Category: Surgical Plan: Plan: - Continue high protein diet. - Take last dose of Keflex tonight then stop. - Does not need to keep replacing steri strips or use xeroform. The steri strips that are on the incisions right now can fall off on their own with showering. Keep ABD pads over to prevent rubbing/friction from abd binder. - Abdominal binder at all times except for care. Can switch to different compressive garment at 6 weeks post op. - No walking outside or exercise for 6 weeks minimum. Walking in the house OK. No lifting greater than 10 pounds x 2 months and no abdominal exercises x 3 months. - Continue the milk of mag to help with constipation and avoid straining. - Will see in office before return to work, and can evaluate if needs note for voice network engineer for short period before returning full duty. Follow up: 2 weeks, as scheduled
--- OUTSIDE RECORDS SUMMARY | 2025-09-16 17:36 | XMS_ITS | Clinical Summary ---
Author Organization [facility] Address [address] [place], [place] [id number] Phone Care Team Providers Care Stage Driver Name Role Phone Yen Bhakta NP Primary [...] Devices Not on file Insurance Care Teams Stage Driver Relationship Specialty Start Date End Date Yen Bhakta NP PCP - General Nurse Practitioner 08/29/23 Additional Source Comments The information contained in this document represents components of the legal health record. It is not the complete legal health record.[facility]
== END 2025-09-16 16:10 | disposition home or self-care (01) ==
LOC: HO.HBS 15:37
PROVIDERS: PCP Nurse Practitioner Family; Visit Provider Nurse Practitioner
DX: Z98.890 Other specified postprocedural states (principal)
CPT/HCPCS: 99024